=== PATIENT | male | born 1975 | race Caucasian/White ===

== ENCOUNTER 2018-05-26 04:18 | Inpatient (IN) | payer SELFPAY ==
[2018-05-26] MEDS ORDERED: THIAMINE HCL 500 MG in NORMAL SALINE 250 ML IV PRN (04:56)
[2018-05-26] MEDS ORDERED: FOLIC ACID INJ 5 MG/1 ML 10 ML VIAL IV ONE (04:57)
[2018-05-26 05:03] LABS: ABSOLUTE EOSINOPHILS # (AUTO) 0.1 10^3/uL (0.0-0.6); ABSOLUTE LYMPHOCYTES (AUTO) 1.4 10^3/uL (0.5-4.7); ABSOLUTE MONOCYTES (AUTO) 0.6 10^3/uL (0.1-1.4); ABSOLUTE NEUT (AUTO) 6.5 10^3/uL (1.7-8.2); BASOPHILS % (AUTO) 0.3 % (0-2); EOSINOPHILS % (AUTO) 0.6 % (0-6); HEMATOCRIT 38.7 % (37.9-51.0); HEMOGLOBIN 13.6 g/dL (13.5-17.0); LYMPHOCYTES % (AUTO) 16.6 % (13-45); MEAN CORPUSCULAR HEMOGLOBIN 32.9 pg (27.0-33.4); MEAN CORPUSCULAR HGB CONC 35.2 g/dL (32.0-36.0); MEAN CORPUSCULAR VOLUME 94 fl (80-97); MONOCYTES % (AUTO) 6.9 % (3-13); PLATELET COUNT 127 10^3/uL (150-450); RED BLOOD COUNT 4.14 10^6/uL (4.35-5.55); RED CELL DISTRIBUTION WIDTH 17.3 % (11.5-14.0); SEGMENTED NEUTROPHILS % (AUTO) 75.6 % (42-78); TOTAL CELLS COUNTED % (AUTO) 100 %; WHITE BLOOD COUNT 8.6 10^3/uL (4.0-10.5)
[2018-05-26 05:09] LABS: INTERNATIONAL RATION (INR) 1.21; PROTHROMBIN TIME 15.9 SEC (11.4-15.4)
[2018-05-26 05:10] LABS: PARTIAL THROMBOPLASTIN TIME 34.8 SEC (23.5-35.8)
[2018-05-26 05:22] LABS: ALANINE AMINOTRANSFERASE 77 U/L (21-72); ALBUMIN 4.5 g/dL (3.5-5.0); ALKALINE PHOSPHATASE 161 U/L (38-126); ASPARTATE AMINO TRANSFERASE 230 U/L (17-59); BILIRUBIN,DIRECT 3.6 mg/dL (0.0-0.4); BILIRUBIN,TOTAL 5.5 mg/dL (0.2-1.3); BLOOD UREA NITROGEN 13 mg/dL (7-20); CALCIUM 10.4 mg/dL (8.4-10.2); GLUCOSE 164 mg/dL (75-110); LIPASE 400.8 U/L (23-300); TOTAL PROTEIN 8.9 g/dL (6.3-8.2)
--- NOTE | 2018-05-26 05:29 | ER Document Report ---
Doctor's Note Notes: 05/26/18 05:26 I performed a quick triage evaluation the patient. Patient is a 43-year-old male who presents with weakness and feeling short of breath. He denies any pain anywhere. No chest pain. No abdominal pain. No headache. He is an alcoholic. He says he drinks almost every day. He does have history of liver failure. He is says he is unsure why he has liver failure. I asked him if it is related to the alcohol and he says "maybe". Says he does have a liver specialist back at his home in [place]. He is currently in the area because he is here working on a job. EKG was performed. Patient does have a right bundle branch block. I do not hold off on old EKG for comparison. He does have some ST segment depression which could be related to the block itself. I do not see any ST segment elevation. He has a sinus rhythm. Rate is approximately 97 bpm. On exam patient has some tremor which she says his nose have a course of the last week. Whenever he tries to move his arms lift his legs he has some social tremor. Denies any history of alcohol withdrawal. He says that the tremor does not get better or worse with drinking alcohol. He is supposed to be on vitamin supplements including thiamine and B12. He says he has not been taking these. His speech is little bit slow. He is little bit slow to respond. He is awake and alert and does answer questions appropriately. He does have significant nystagmus on exam. I have ordered thiamine. I have ordered folate. Have ordered CT scan of the head. Of ordered ammonia level. Of ordered further blood work. 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 Dictation of this chart was performed using voice recognition software; therefore, there may be some unintended grammatical errors. 05/26/18 05:28
[2018-05-26] MEDS ORDERED: THIAMINE HCL INJ 200 MG/2 ML VIAL IV PRN (05:33)
[2018-05-26] MEDS ORDERED: THIAMINE HCL INJ 200 MG/2 ML VIAL ONE ×3 (05:35→05:50)
[2018-05-26 05:57] LABS: CARBON DIOXIDE 19 mmol/L (22-30); CHLORIDE 101 mmol/L (98-107)
[2018-05-26 06:01] LABS: ALCOHOL 337 mg/dL (NONE DETECTED); POTASSIUM 2.2 mmol/L (3.6-5.0)
[2018-05-26] MEDS ORDERED: LACTULOSE SYRUP 20 GM/30 ML UDCUP PO ONE (06:05)
[2018-05-26] MEDS ORDERED: POTASSIUM CHLORIDE 10 MEQ CAPSULE.ER PO ONE (06:05)
--- NOTE | 2018-05-26 06:06 | ER Document Report ---
ED Dizziness/Weakness - General Chief Complaint: General Weakness Stated Complaint: WEAKNESS Time Seen by Provider: 05/26/18 04:49 Notes: 43-year-old male to the emergency department for evaluation of altered mental status. Patient here from out of town. Reportedly heavy drinker. Was confused and short of breath so called 911. Has any trauma. Complaining of pain all over. - HPI Patient complains to provider of: Altered mental status Onset/Duration: Gradual Quality of pain: Achy Severity: Moderate - Related Data Allergies/Adverse Reactions: No Known Allergies Allergy (Verified 05/26/18 04:53) Past Medical History - General Information source: Patient - Social History Smoking Status: Never Smoker Chew tobacco use (# tins/day): No Frequency of alcohol use: Heavy Drug Abuse: None Lives with: Alone Family History: Reviewed & Not Pertinent Patient has suicidal ideation: No Patient has homicidal ideation: No Renal/ Medical History: Denies: Hx Peritoneal Dialysis Review of Systems - Review of Systems Constitutional: Malaise, Weakness. denies: Fever EENT: denies: Eye pain, Difficulty swallowing, Mouth pain Cardiovascular: Palpitations, Dyspnea. denies: Chest pain, Heart racing, Orthopnea Respiratory: Short of breath. denies: Cough, Wheezing Gastrointestinal: denies: Abdominal pain, Diarrhea, Nausea, Vomiting Genitourinary: denies: Burning, Dysuria, Discharge Musculoskeletal: Muscle pain. denies: Back pain, Leg swelling Skin: denies: Dryness, Lesions, Lumps, Rash Hematologic/Lymphatic: denies: Anemia, Blood clots, Easy bleeding, Easy bruising Neurological/Psychological: Confusion, Weakness. denies: Numbness Physical Exam - Vital signs Vitals: Pulse Ox 100 05/26/18 04:22 Interpretation: Tachycardic - General General appearance: Appears well, Alert - HEENT Head: Normocephalic, Atraumatic Eyes: Normal Conjunctiva: Icteric Pupils: PERRL - Respiratory Respiratory status: No respiratory distress Chest status: Nontender Breath sounds: Normal Chest palpation: Normal - Cardiovascular Rhythm: Tachycardia Heart sounds: Normal auscultation Murmur: No - Abdominal Inspection: Normal Distension: No distension Bowel sounds: Normal Tenderness: Nontender Organomegaly: No organomegaly - Back Back: Normal, Nontender - Extremities General upper extremity: Normal inspection, Nontender, Normal color, Normal ROM, Normal temperature General lower extremity: Normal inspection, Nontender, Normal color, Normal ROM, Normal temperature, Normal weight bearing. No: Feli's sign - Neurological Neuro grossly intact: Yes Cognition: Confused Orientation: AAOx4 [place] Coma Scale Eye Opening: Spontaneous Robert Coma Scale Verbal: Oriented Robert Coma Scale Motor: Obeys Commands Robert Coma Scale Total: 15 Speech: Normal Motor strength normal: LUE, RUE, LLE, RLE Sensory: Normal - Psychological Associated symptoms: Normal affect, Normal mood - Skin Skin Temperature: Warm Skin Moisture: Dry Skin Color: Normal Course - Re-evaluation Re-evalutation: 05/26/18 07:28 Patient with profound hypokalemia and some EKG changes with increased QTC, ammonia level in the 120s. Patient begun on immediate potassium replacement therapy. Lactulose. Patient will need stepdown level care at the [facility] at this time. Consulted with Dr. Jimenez will admit at this time. 05/26/18 09:30 Laboratory 05/26/18 05/26/18 05/26/18 04:36 04:48 04:48 WBC 8.6 RBC 4.14 L Hgb 13.6 Hct 38.7 MCV 94 MCH 32.9 MCHC 35.2 RDW 17.3 H Plt Count 127 L Seg Neutrophils % 75.6 Lymphocytes % 16.6 Monocytes % 6.9 Eosinophils % 0.6 Basophils % 0.3 Absolute Neutrophils 6.5 Absolute Lymphocytes 1.4 Absolute Monocytes 0.6 Absolute Eosinophils 0.1 Absolute Basophils 0.0 PT INR APTT Sodium 142.0 Potassium 2.2 L* Chloride 101 Carbon Dioxide 19 L Anion Gap 22 H BUN 13 Creatinine 0.85 Est GFR ( Amer) > 60 Est GFR (Non-Af Amer) > 60 Glucose 164 H POC Glucose 155 H Calcium 10.4 H Total Bilirubin 5.5 H Direct Bilirubin 3.6 H Neonat Total Bilirubin Not Reportable Neonat Direct Bilirubin Not Reportable Neonat Indirect Bili Not Reportable AST 230 H ALT 77 H Alkaline Phosphatase 161 H Ammonia Troponin I Total Protein 8.9 H Albumin 4.5 Lipase 400.8 H Vitamin B12 Cancelled Folate 3.49 Serum Alcohol 337 H* 05/26/18 05/26/18 05/26/18 04:48 04:48 04:48 WBC RBC Hgb Hct MCV MCH MCHC RDW Plt Count Seg Neutrophils % Lymphocytes % Monocytes % Eosinophils % Basophils % Absolute Neutrophils Absolute Lymphocytes Absolute Monocytes Absolute Eosinophils Absolute Basophils PT 15.9 H INR 1.21 APTT 34.8 Sodium Potassium Chloride Carbon Dioxide Anion Gap BUN Creatinine Est GFR ( Amer) Est GFR (Non-Af Amer) Glucose POC Glucose Calcium Total Bilirubin Direct Bilirubin Neonat Total Bilirubin Neonat Direct Bilirubin Neonat Indirect Bili AST ALT Alkaline Phosphatase Ammonia 125.8 H Troponin I < 0.012 Total Protein Albumin Lipase Vitamin B12 Folate Serum Alcohol Chest X-Ray 05/26/18 04:49 IMPRESSION: Clear lungs. Head CT 05/26/18 04:49 IMPRESSION: No acute intracranial findings. - Vital Signs Vital signs: Temp Pulse Resp BP Pulse Ox 98.0 F 107 H 16 133/73 H 100 05/26/18 08:54 05/26/18 08:54 05/26/18 08:54 05/26/18 08:54 05/26/18 08:54 - Laboratory Result Diagrams: 05/26/18 04:48 05/26/18 04:48 Laboratory results interpreted by me: 05/26/18 05/26/18 05/26/18 04:36 04:48 04:48 RBC 4.14 L RDW 17.3 H Plt Count 127 L PT Potassium 2.2 L* Carbon Dioxide 19 L Anion Gap 22 H Glucose 164 H POC Glucose 155 H Calcium 10.4 H Total Bilirubin 5.5 H Direct Bilirubin 3.6 H AST 230 H ALT 77 H Alkaline Phosphatase 161 H Ammonia Total Protein 8.9 H Lipase 400.8 H Serum Alcohol 337 H* 05/26/18 05/26/18 04:48 04:48 RBC RDW Plt Count PT 15.9 H Potassium Carbon Dioxide Anion Gap Glucose POC Glucose Calcium Total Bilirubin Direct Bilirubin AST ALT Alkaline Phosphatase Ammonia 125.8 H Total Protein Lipase Serum Alcohol Critical Care Note - Critical Care Note Total time excluding time spent on procedures (mins): 45 Comments: Hypokalemia, hepatic encephalopathy Discharge - Discharge Clinical Impression: Increased ammonia level, Hypokalemia, Hepatic encephalopathy, Elevated bilirubin, Intoxication Condition: Fair Disposition: ADMITTED OBSERVATION [facility] Admitted: [facility]
--- NOTE | 2018-05-26 06:13 | RADIOLOGY REPORT (SQ) ---
CLINICAL HISTORY: weakness, tremor COMPARISON: None. 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 FINDINGS: There is no acute hemorrhage, mass effect or midline shift. Christiansen-white differentiation is preserved. There is no hydrocephalus. There is no significant volume loss for age. The calvarium is intact. Orbits and globes are unremarkable. The paranasal sinuses are clear. Mastoid air cells are clear. IMPRESSION: No acute intracranial findings.
--- NOTE | 2018-05-26 06:17 | RADIOLOGY REPORT (SQ) ---
CLINICAL HISTORY: dyspnea COMPARISON: None. 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 Lungs are clear without consolidation, atelectasis, mass or edema. There is no pleural effusion. There is no pneumothorax. There are no acute osseous findings. IMPRESSION: Clear lungs.
[2018-05-26] MEDS: POTASSI CL 20 MEQ/50 ML RIDER 20 MEQ/50 ML RTUPB IV SCH ×4 (06:34→13:08)
[2018-05-26 08:50] LABS: ANION GAP 22 (5-19); FOLATE 3.49 ng/mL (>2.76)
--- NOTE | 2018-05-26 08:51 | EKG REPORT ---
SEVERITY:- ABNORMAL ECG - SINUS RHYTHM RIGHT BUNDLE BRANCH BLOCK : Confirmed by: Arcenio Pemberton MD 26-May-2018 08:50:14
--- NOTE | 2018-05-26 09:07 | PDOC H&P ---
History of Present Illness Admission Date/PCP: 05/26/18 07:40 History of Present Illness: KELLI ESTEBAN is a 43 year old male who moved recently from [facility] to [place] for work. Patient presents to the emergency room due to acute onset of generalized weakness associated with shaking and tremulousness and feeling cold. He denies fever or chills. He denies nausea, vomiting, diarrhea or constipation. No chest pain. He admits to feeling short of breath. He is very poor historian. He says he is drinking 8 glasses of vodka every other day for the past month. He has been drinking for several years but quit for some time and now drinking again. Patient says he has history of liver and kidney disease but unsure what kind of illness exactly. In the emergency room he was found to have high ammonia level and his alcohol level was 337. He says his last drink was 2 days ago. His liver enzymes are elevated and his lipase is 400. His potassium was 2.2. Urine drug screen is pending. Past Medical History Renal/ Medical History: Reports: Other - Renal disease, unspecified GI Medical History: Reports: Other - Liver disease, unspecified Social History Smoking Status: Current Every Day Smoker Frequency of Alcohol Use: Heavy Family History Family History: DM Parental Family History Reviewed: Yes Children Family History Reviewed: NA Sibling(s) Family History Reviewed.: NA Medication/Allergy Allergies/Adverse Reactions: No Known Allergies Allergy (Verified 05/26/18 04:53) Review of Systems All systems: reviewed and no additional remarkable complaints except as stated Physical Exam Vital Signs: Temp Pulse Resp BP Pulse Ox 98.0 F 110 H 11 L 114/67 100 05/26/18 08:22 05/26/18 07:44 05/26/18 08:01 05/26/18 08:01 05/26/18 08:01 Intake & Output 05/25/18 05/26/18 05/27/18 06:59 06:59 06:59 Intake Total 255 37 Balance 255 37 Weight 162 lb 0.636 oz General appearance: PRESENT: cooperative, thin Head exam: PRESENT: atraumatic, normocephalic Eye exam: PRESENT: conjunctival injection, scleral icterus Ear exam: ABSENT: bleeding, drainage Mouth exam: PRESENT: moist, neck supple Neck exam: ABSENT: meningismus, tenderness Respiratory exam: PRESENT: clear to auscultation titi. ABSENT: accessory muscle use Cardiovascular exam: PRESENT: RRR. ABSENT: diastolic murmur, systolic murmur Pulses: PRESENT: normal carotid pulses, normal radial pulses GI/Abdominal exam: PRESENT: normal bowel sounds, soft. ABSENT: tenderness Rectal exam: PRESENT: deferred Extremities exam: ABSENT: joint swelling, pedal edema Musculoskeletal exam: PRESENT: normal inspection. ABSENT: deformity Neurological exam: PRESENT: alert, awake, oriented to person, oriented to place, oriented to time, oriented to situation, other - [place] Psychiatric exam: PRESENT: anxious, unusual affect Results Laboratory Results: 05/26/18 04:48 05/26/18 04:48 05/26/18 05/26/18 05/26/18 04:48 04:48 04:48 WBC 8.6 RBC 4.14 L Hgb 13.6 Hct 38.7 MCV 94 MCH 32.9 MCHC 35.2 RDW 17.3 H Plt Count 127 L Seg Neutrophils % 75.6 Lymphocytes % 16.6 Monocytes % 6.9 Eosinophils % 0.6 Basophils % 0.3 Absolute Neutrophils 6.5 Absolute Lymphocytes 1.4 Absolute Monocytes 0.6 Absolute Eosinophils 0.1 Absolute Basophils 0.0 Sodium 142.0 Potassium 2.2 L* Chloride 101 Carbon Dioxide 19 L Anion Gap 22 H BUN 13 Creatinine 0.85 Est GFR ( Amer) > 60 Est GFR (Non-Af Amer) > 60 Glucose 164 H Calcium 10.4 H Total Bilirubin 5.5 H AST 230 H ALT 77 H Alkaline Phosphatase 161 H Ammonia 125.8 H Total Protein 8.9 H Albumin 4.5 Lipase 400.8 H Vitamin B12 Cancelled Folate 3.49 05/26/18 04:48 Troponin I < 0.012 Impressions: Chest X-Ray 05/26/18 04:49 IMPRESSION: Clear lungs. Head CT 05/26/18 04:49 IMPRESSION: No acute intracranial findings. Assessment & Plan - Diagnosis (1) Intoxication Is this a current diagnosis for this admission?: Yes Plan: Patient's alcohol level is 337. Continue with IV fluids and supportive measures. Watch for alcohol withdrawal symptoms. Start thiamine supplements and multivitamins. IV Ativan scheduled and as needed. (2) Hepatic encephalopathy Is this a current diagnosis for this admission?: Yes Plan: Start p.o. lactulose twice daily (3) Elevated bilirubin Is this a current diagnosis for this admission?: Yes Plan: Monitor bilirubin levels. Likely related to alcoholism and alcoholic liver disease. Check abdominal ultrasound. (4) Hypokalemia Is this a current diagnosis for this admission?: Yes Plan: Replace aggressively. Monitor potassium levels. Check magnesium levels. (5) Increased ammonia level Is this a current diagnosis for this admission?: Yes Plan: Continue lactulose as above.
[2018-05-26] MEDS: LACTULOSE SYRUP 20 GM/30 ML UDCUP PO SCH ×2 (11:01→21:24)
[2018-05-26] MEDS: LORAZEPAM INJ 2 MG/1 ML VIAL IV SCH ×4 (11:45→21:24)
--- NOTE | 2018-05-26 11:46 | RADIOLOGY REPORT (SQ) ---
EXAM DESCRIPTION: U/S ABDOMEN COMPLETE W/O DOP COMPLETED DATE/TIME: 05/26/2018 11:37 am REASON FOR STUDY: elevated bilirubin COMPARISON: None. TECHNIQUE: Dynamic and static grayscale images acquired of the abdomen and recorded on PACS. Additio nal selected color Doppler and spectral images recorded. Note: Study does not meet criteria for complete doppler/duplex scan LIMITATIONS: None. FINDINGS: PANCREAS: No masses. Visualized pancreatic duct normal caliber. LIVER: Slightly nodular. Fatty infiltration. No focal masses. 18.1 cm. LIVER VASCULATURE: Normal directional flow of the main portal vein and hepatic veins. GALLBLADDER: No stones. Normal wall thickness. No pericholecystic fluid. ULTRASOUND-DETECTED CARTER'S SIGN: Negative. INTRAHEPATIC DUCTS AND COMMON DUCT: CBD and intrahepatic ducts normal caliber. No filling defects. INFERIOR VENA CAVA: Normal flow. AORTA: No aneurysm. RIGHT KIDNEY: Normal size. Normal echogenicity. No solid or suspicious masses. No hydronephros is. No calcifications. LEFT KIDNEY: Normal size. Normal echogenicity. No solid or suspicious masses. No hydronephrosi s. No calcifications. SPLEEN: Splenomegaly. 13.7 cm. PERITONEAL AND PLEURAL SPACES: No ascites or effusions. OTHER: No other significant finding. IMPRESSION: Slightly nodular liver with fatty infiltration. Splenomegaly. No gallstones. TECHNICAL DOCUMENTATION: JOB ID: [id number] [employer]- All Rights Reserved Reading location - IP/workstation name: [email or web address]
[2018-05-26 12:01] LABS: URINE AMPHETAMINES SCREEN NEGATIVE; URINE BARBITURATES SCREEN NEGATIVE; URINE BENZODIAZEPINES SCREEN NEGATIVE; URINE COCAINE SCREEN NEGATIVE; URINE MARIJUANA (THC) SCREEN NEGATIVE; URINE METHADONE SCREEN NEGATIVE; URINE PHENCYCLIDINE SCREEN NEGATIVE
[2018-05-26 14:22] LABS: APPEARANCE,URINE CLEAR; BILIRUBIN,URINE NEGATIVE (NEGATIVE); COLOR,URINE AMBER; GLUCOSE, URINE NEGATIVE (NEGATIVE); KETONES,URINE NEGATIVE (NEGATIVE); LEUKOCYTE ESTERASE,URINE NEGATIVE (NEGATIVE); NITRITE,URINE NEGATIVE (NEGATIVE); PROTEIN,URINE NEGATIVE (NEGATIVE); URINE SPECIFIC GRAVITY 1.013
[2018-05-26] MEDS ORDERED: MAGNESIUM SULFATE/D5W 1 GM/100 ML RTUPB IV ONE (15:00)
[2018-05-26] MEDS ORDERED: NORMAL SALINE 1000 ML 1,000 ML IV ONE (16:00)
[2018-05-26] MEDS ORDERED: LORAZEPAM INJ 2 MG/1 ML VIAL IV ONE (16:00)
[2018-05-26] MEDS: MAGNESIUM SULFATE/D5W 1 GM/100 ML RTUPB IV SCH ×2 (17:04→18:47)
[2018-05-26] MEDS: NORMAL SALINE 1000 ML 1,000 ML with POTASSIUM CHLORIDE 20 MEQ, MAGNESIUM SULFATE 8 MEQ,... IV SCH ×5 (17:08)
[2018-05-26] MEDS ORDERED: POTASSIUM CHLORIDE 20 MEQ/15 ML UDCUP PO ONE (18:00)
[2018-05-26] MEDS: POTASSIUM CHLORIDE 20 MEQ/50 ML RTU IV SCH (18:56)
[2018-05-26] MEDS ORDERED: METOPROLOL TARTRATE PF/INJ 5 MG/5 ML SDV IV ONE (19:55)
[2018-05-26] MEDS: METOPROLOL TARTRATE PF/INJ 5 MG/5 ML SDV IV PRN (22:09)
[2018-05-27] MEDS: POTASSIUM CHLORIDE 20 MEQ/50 ML RTU IV SCH ×3 (00:31→08:38)
[2018-05-27] MEDS: LORAZEPAM INJ 2 MG/1 ML VIAL IV SCH ×6 (02:14→22:16)
[2018-05-27] MEDS: LORAZEPAM INJ 2 MG/1 ML VIAL IV PRN (04:44)
[2018-05-27 05:40] LABS: HEMATOCRIT 31.1 % (37.9-51.0); MEAN CORPUSCULAR HEMOGLOBIN 33.1 pg (27.0-33.4); MEAN CORPUSCULAR HGB CONC 35.6 g/dL (32.0-36.0); MEAN CORPUSCULAR VOLUME 93 fl (80-97); RED BLOOD COUNT 3.33 10^6/uL (4.35-5.55); RED CELL DISTRIBUTION WIDTH 17.4 % (11.5-14.0)
[2018-05-27 06:05] LABS: ALANINE AMINOTRANSFERASE 56 U/L (21-72); ALBUMIN 3.2 g/dL (3.5-5.0); ALKALINE PHOSPHATASE 118 U/L (38-126); ANION GAP 9 (5-19); ASPARTATE AMINO TRANSFERASE 193 U/L (17-59); BILIRUBIN,DIRECT 4.6 mg/dL (0.0-0.4); BILIRUBIN,TOTAL 7.8 mg/dL (0.2-1.3); BLOOD UREA NITROGEN 10 mg/dL (7-20); CALCIUM 8.2 mg/dL (8.4-10.2); CARBON DIOXIDE 19 mmol/L (22-30); CHLORIDE 114 mmol/L (98-107); GLUCOSE 95 mg/dL (75-110); PHOSPHORUS 0.9 mg/dL (2.5-4.5); SODIUM 141.7 mmol/L (137-145); TOTAL PROTEIN 6.7 g/dL (6.3-8.2)
[2018-05-27 06:25] LABS: POTASSIUM 2.4 mmol/L (3.6-5.0)
[2018-05-27 06:29] LABS: HEMOGLOBIN 11.1 g/dL (13.5-17.0); PLATELET COUNT 58 10^3/uL (150-450)
[2018-05-27] MEDS ORDERED: POTASSIUM CHLORIDE 10 MEQ CAPSULE.ER PO ONE (07:00)
--- NOTE | 2018-05-27 08:54 | PDOC PROGRESS REPORT ---
Subjective Progress Note for:: 05/27/18 Subjective:: Alert only to his first name, very low attention span, does not follow conversation, cooperates with physical examination, but cannot perform 2 step commands. He looks tremulous, denies any visual or auditory hallucinations, does not provide much history. Reason For Visit: ALCOHOL INTOXICATION Physical Exam Vital Signs: Temp Pulse Resp BP Pulse Ox 98.6 F 113 H 16 113/65 100 05/27/18 07:39 05/27/18 07:39 05/27/18 07:39 05/27/18 07:39 05/27/18 07:39 Intake & Output 05/26/18 05/27/18 05/28/18 06:59 06:59 06:59 Intake Total 255 2960 46 Output Total 1925 Balance 255 1035 46 Weight 73.5 kg 70.9 kg General appearance: PRESENT: no acute distress, well-developed, well-nourished Head exam: PRESENT: atraumatic, normocephalic Respiratory exam: PRESENT: clear to auscultation titi. ABSENT: rales, rhonchi, wheezes Cardiovascular exam: PRESENT: RRR, tachycardia Pulses: PRESENT: normal dorsalis pedis pul GI/Abdominal exam: PRESENT: normal bowel sounds, soft. ABSENT: distended, guarding, mass, organolmegaly, rebound, tenderness Extremities exam: PRESENT: full ROM. ABSENT: calf tenderness, clubbing, pedal edema Neurological exam: PRESENT: alert, awake, oriented to person, CN II-XII grossly intact Skin exam: PRESENT: dry, intact, warm. ABSENT: cyanosis, rash Results Laboratory Results: 05/27/18 04:20 05/27/18 04:20 05/26/18 05/26/18 05/26/18 04:48 10:50 10:50 WBC RBC Hgb Hct MCV MCH MCHC RDW Plt Count Sodium Potassium Chloride Carbon Dioxide Anion Gap 22 H BUN Creatinine Est GFR ( Amer) Est GFR (Non-Af Amer) Glucose Calcium Phosphorus Magnesium 1.5 L Total Bilirubin AST ALT Alkaline Phosphatase Total Protein Albumin Vitamin B12 Cancelled 798.0 Folate 3.49 Urine Color BILL Urine Appearance CLEAR Urine pH 7.0 Ur Specific [place] 1.013 Urine Protein NEGATIVE Urine Glucose (UA) NEGATIVE Urine Ketones NEGATIVE Urine Blood SMALL H Urine Nitrite NEGATIVE Ur Leukocyte Esterase NEGATIVE Urine WBC (Auto) 3 Urine RBC (Auto) 1 05/26/18 05/27/18 05/27/18 16:45 04:20 04:20 WBC 7.0 RBC 3.33 L Hgb 11.1 L D Hct 31.1 L MCV 93 MCH 33.1 MCHC 35.6 RDW 17.4 H Plt Count 58 L Sodium 141.7 Potassium 2.6 L* 2.4 L* Chloride 114 H Carbon Dioxide 19 L Anion Gap 9 BUN 10 Creatinine 0.66 Est GFR ( Amer) > 60 Est GFR (Non-Af Amer) > 60 Glucose 95 Calcium 8.2 L Phosphorus 0.9 L Magnesium 2.4 H Total Bilirubin 7.8 H AST 193 H ALT 56 Alkaline Phosphatase 118 Total Protein 6.7 Albumin 3.2 L Vitamin B12 Folate Urine Color Urine Appearance Urine pH Ur Specific [place] Urine Protein Urine Glucose (UA) Urine Ketones Urine Blood Urine Nitrite Ur Leukocyte Esterase Urine WBC (Auto) Urine RBC (Auto) 05/26/18 04:48 Troponin I < 0.012 Impressions: Abdomen Ultrasound 05/26/18 00:00 IMPRESSION: Slightly nodular liver with fatty infiltration. Splenomegaly. No gallstones. Chest X-Ray 05/26/18 04:49 IMPRESSION: Clear lungs. Head CT 05/26/18 04:49 IMPRESSION: No acute intracranial findings. Assessment & Plan - Diagnosis (1) Alcohol intoxication Qualifiers: Complication of substance-induced condition: with unspecified complication Qualified Code(s): F10.929 - Alcohol use, unspecified with intoxication, unspecified Is this a current diagnosis for this admission?: Yes Plan: CIWA-Ar Scale 11. Serum alcohol 337 on admission. Continue benzos, folic acid and thiamine, monitor for DT, monitor vitals. (2) Hepatic encephalopathy Is this a current diagnosis for this admission?: Yes Plan: Ammonia 125.8. Abdominal ultrasound slightly nodular liver with fatty infiltration. Pending hepatitis panel. PT 15.9 INR 1.21 on admission AST 193 down from 230 on admission. ALT 56 down from 77 on admission. Direct bili 4.6.6 up down from 3.6 Total bili 7.8 up from 5.5 admission Hepatitis discriminant factor 28.5 Continue lactulose, monitor vital status. (3) Hypokalemia Is this a current diagnosis for this admission?: Yes Plan: Replaced. Follow-up BMP. (4) Elevated liver enzymes Is this a current diagnosis for this admission?: Yes Plan: 05/26/2018. Abdominal ultrasound slightly nodular liver with fatty infiltration. AST 193 down from 230 on admission. ALT 56 down from 77 on admission. Direct bili 4.6.6 up down from 3.6 Total bili 7.8 up from 5.5 admission Ammonia 125.8. On admission Hepatitis discriminant factor 28.5 Pending hepatitis panel. Likely due to EtOH abuse. LFTs tomorrow. Will consider GI consult if does not improve.
[2018-05-27] MEDS: LACTULOSE SYRUP 20 GM/30 ML UDCUP PO SCH ×2 (10:46→22:16)
[2018-05-27 13:41] LABS: ANION GAP 8 (5-19); BLOOD UREA NITROGEN 11 mg/dL (7-20); CARBON DIOXIDE 18 mmol/L (22-30); CHLORIDE 117 mmol/L (98-107); GLUCOSE 102 mg/dL (75-110); SODIUM 142.7 mmol/L (137-145)
[2018-05-27] MEDS: THIAMINE HCL 100 MG TABLET PO SCH (14:10)
[2018-05-27] MEDS ORDERED: POTASSIUM CHLORIDE 20 MEQ/15 ML UDCUP PO ONE (14:30)
[2018-05-27] MEDS: NORMAL SALINE 1000 ML 1,000 ML with POTASSIUM CHLORIDE 20 MEQ, MAGNESIUM SULFATE 8 MEQ,... IV SCH ×5 (17:43)
[2018-05-27] MEDS: FOLIC ACID/VITAMIN B COMP W-C CAPSULE PO SCH (17:44)
[2018-05-27] MEDS: METOPROLOL TARTRATE PF/INJ 5 MG/5 ML SDV IV PRN (23:34)
[2018-05-28] MEDS: LORAZEPAM INJ 2 MG/1 ML VIAL IV PRN ×5 (00:14→23:15)
[2018-05-28] MEDS: LORAZEPAM INJ 2 MG/1 ML VIAL IV SCH ×6 (02:07→21:08)
[2018-05-28 05:14] LABS: ABSOLUTE BASOPHILS # (AUTO) 0.1 10^3/uL (0.0-0.2); ABSOLUTE EOSINOPHILS # (AUTO) 0.1 10^3/uL (0.0-0.6); ABSOLUTE LYMPHOCYTES (AUTO) 1.1 10^3/uL (0.5-4.7); ABSOLUTE MONOCYTES (AUTO) 0.6 10^3/uL (0.1-1.4); ABSOLUTE NEUT (AUTO) 5.2 10^3/uL (1.7-8.2); BASOPHILS % (AUTO) 0.7 % (0-2); EOSINOPHILS % (AUTO) 1.6 % (0-6); HEMATOCRIT 29.7 % (37.9-51.0); HEMOGLOBIN 10.5 g/dL (13.5-17.0); LYMPHOCYTES % (AUTO) 15.6 % (13-45); MEAN CORPUSCULAR HEMOGLOBIN 33.7 pg (27.0-33.4); MEAN CORPUSCULAR HGB CONC 35.4 g/dL (32.0-36.0); MEAN CORPUSCULAR VOLUME 95 fl (80-97); MONOCYTES % (AUTO) 8.6 % (3-13); RED BLOOD COUNT 3.13 10^6/uL (4.35-5.55); RED CELL DISTRIBUTION WIDTH 17.4 % (11.5-14.0); SEGMENTED NEUTROPHILS % (AUTO) 73.5 % (42-78); TOTAL CELLS COUNTED % (AUTO) 100 %; WHITE BLOOD COUNT 7.1 10^3/uL (4.0-10.5)
[2018-05-28 05:24] LABS: PLATELET COUNT 54 10^3/uL (150-450)
[2018-05-28 05:30] LABS: ALANINE AMINOTRANSFERASE 55 U/L (21-72); ALBUMIN 2.9 g/dL (3.5-5.0); ALKALINE PHOSPHATASE 98 U/L (38-126); ANION GAP 9 (5-19); ASPARTATE AMINO TRANSFERASE 148 U/L (17-59); BILIRUBIN,DIRECT 6.8 mg/dL (0.0-0.4); BLOOD UREA NITROGEN 11 mg/dL (7-20); CALCIUM 8.1 mg/dL (8.4-10.2); CARBON DIOXIDE 16 mmol/L (22-30); CHLORIDE 118 mmol/L (98-107); GLUCOSE 98 mg/dL (75-110); SODIUM 142.6 mmol/L (137-145); TOTAL PROTEIN 6.5 g/dL (6.3-8.2)
[2018-05-28 05:36] LABS: POTASSIUM 2.9 mmol/L (3.6-5.0)
[2018-05-28] MEDS: METOPROLOL TARTRATE PF/INJ 5 MG/5 ML SDV IV PRN (06:43)
[2018-05-28] MEDS ORDERED: POTASSI CL 40 MEQ/NS 1L 1,000 ML IV PRN (09:00)
[2018-05-28 09:40] LABS: HEPATITIS A AB IGM Negative (Negative); HEPATITIS B CORE AB IGM Negative (Negative); HEPATITS B SURFACE ANTIGEN Negative (Negative)
[2018-05-28 09:54] LABS: HEPATITIS C VIRUS ANTIBODY 0.1 s/co ratio (0.0-0.9)
[2018-05-28] MEDS: THIAMINE HCL 100 MG TABLET PO SCH (12:22)
--- NOTE | 2018-05-28 14:06 | PDOC PROGRESS REPORT ---
Subjective Progress Note for:: 05/28/18 Subjective:: No acute events overnight. Mild improvement of mental status. And oriented to name and location. Denies any active visual/auditory hallucinations or formication. Cooperative with physical examination with low attention span. Denies any nausea, vomiting, diarrhea, constipation, chest pain, shortness of breath or any urinary symptoms. Reason For Visit: DTS,HEPATIC ENCEPHALOPATHY Physical Exam Vital Signs: Temp Pulse Resp BP Pulse Ox 100.4 F 113 H 16 114/71 100 05/28/18 11:56 05/28/18 11:56 05/28/18 11:56 05/28/18 11:56 05/28/18 11:56 Intake & Output 05/27/18 05/28/18 05/29/18 06:59 06:59 06:59 Intake Total 2960 1119 Output Total 1925 1825 675 Balance 1035 -706 -675 Weight 70.9 kg 70.3 kg General appearance: PRESENT: no acute distress, well-developed, well-nourished Head exam: PRESENT: atraumatic, normocephalic Respiratory exam: PRESENT: clear to auscultation titi. ABSENT: rales, rhonchi, wheezes Cardiovascular exam: PRESENT: RRR. ABSENT: diastolic murmur, rubs, systolic murmur GI/Abdominal exam: PRESENT: normal bowel sounds, soft. ABSENT: distended, guarding, mass, organolmegaly, rebound, tenderness Extremities exam: PRESENT: full ROM. ABSENT: calf tenderness, clubbing, pedal edema Neurological exam: PRESENT: altered, awake, oriented to person, oriented to place, CN II-XII grossly intact Skin exam: PRESENT: jaundice Results Laboratory Results: 05/28/18 04:25 05/28/18 04:25 05/28/18 05/28/18 04:25 04:25 WBC 7.1 RBC 3.13 L Hgb 10.5 L Hct 29.7 L MCV 95 MCH 33.7 H MCHC 35.4 RDW 17.4 H Plt Count 54 L Seg Neutrophils % 73.5 Lymphocytes % 15.6 Monocytes % 8.6 Eosinophils % 1.6 Basophils % 0.7 Absolute Neutrophils 5.2 Absolute Lymphocytes 1.1 Absolute Monocytes 0.6 Absolute Eosinophils 0.1 Absolute Basophils 0.1 Sodium 142.6 Potassium 2.9 L* Chloride 118 H Carbon Dioxide 16 L Anion Gap 9 BUN 11 Creatinine 0.60 Est GFR ( Amer) > 60 Est GFR (Non-Af Amer) > 60 Glucose 98 Calcium 8.1 L Magnesium 2.1 Total Bilirubin 10.0 H AST 148 H ALT 55 Alkaline Phosphatase 98 Total Protein 6.5 Albumin 2.9 L 05/26/18 04:48 Troponin I < 0.012 Impressions: Abdomen Ultrasound 05/26/18 00:00 IMPRESSION: Slightly nodular liver with fatty infiltration. Splenomegaly. No gallstones. Chest X-Ray 05/26/18 04:49 IMPRESSION: Clear lungs. Head CT 05/26/18 04:49 IMPRESSION: No acute intracranial findings. Assessment & Plan - Diagnosis (1) Alcohol intoxication Qualifiers: Complication of substance-induced condition: with unspecified complication Qualified Code(s): F10.929 - Alcohol use, unspecified with intoxication, unspecified Is this a current diagnosis for this admission?: Yes Plan: CIWA-Ar Scale 10. Serum alcohol 337 on admission. Continue benzos, D5 NS, folic acid and thiamine, monitor for DT, monitor vitals. (2) Hepatic encephalopathy Is this a current diagnosis for this admission?: Yes Plan: Ammonia 125.8 on admission Abdominal ultrasound slightly nodular liver with fatty infiltration. Hepatitis panel negative. PT 15.9 INR 1.21 on admission AST 193 down from 230 on admission. ALT 56 down from 77 on admission. Direct bili 10 from 4.6 Total bili 6.8 from 7.8 Hepatitis discriminant factor 28.5 Continue lactulose, monitor vital status. (3) Hypokalemia Is this a current diagnosis for this admission?: Yes Plan: Replaced. D5 NS plus potassium. BMP. Replace as needed. (4) Elevated liver enzymes Is this a current diagnosis for this admission?: Yes Plan: Likely alcoholic hepatitis. 05/26/2018. Abdominal ultrasound slightly nodular liver with fatty infiltration. Hepatitis panel negative. PT 15.9 INR 1.21 on admission AST 193 down from 230 on admission. ALT 56 down from 77 on admission. Direct bili 10 from 4.6 Total bili 6.8 from 7.8 Hepatitis discriminant factor 28.5 Likely due to EtOH abuse. LFTs tomorrow. Will consider GI consult if does not improve.
[2018-05-28] MEDS ORDERED: POTASSIUM CHLORIDE 10 MEQ CAPSULE.ER PO ONE (15:00)
[2018-05-28] MEDS: FOLIC ACID/VITAMIN B COMP W-C CAPSULE PO SCH (15:04)
[2018-05-28] MEDS: POTASSI CL 20 MEQ/D5NS 1L 20 MEQ/1,000 ML RTUINJ IV PRN (15:26)
[2018-05-29] MEDS: LORAZEPAM INJ 2 MG/1 ML VIAL IV PRN ×8 (00:49→23:45)
[2018-05-29] MEDS: LORAZEPAM INJ 2 MG/1 ML VIAL IV SCH ×6 (01:19→21:07)
[2018-05-29] MEDS: POTASSI CL 20 MEQ/D5NS 1L 20 MEQ/1,000 ML RTUINJ IV PRN (03:00)
[2018-05-29 07:29] LABS: ALANINE AMINOTRANSFERASE 40 U/L (21-72); ALBUMIN 2.5 g/dL (3.5-5.0); ALKALINE PHOSPHATASE 86 U/L (38-126); ANION GAP 9 (5-19); ASPARTATE AMINO TRANSFERASE 101 U/L (17-59); BILIRUBIN,DIRECT 5.9 mg/dL (0.0-0.4); BILIRUBIN,TOTAL 8.4 mg/dL (0.2-1.3); BLOOD UREA NITROGEN 13 mg/dL (7-20); CARBON DIOXIDE 14 mmol/L (22-30); CHLORIDE 121 mmol/L (98-107); GLUCOSE 124 mg/dL (75-110); POTASSIUM 3.1 mmol/L (3.6-5.0); SODIUM 143.8 mmol/L (137-145); TOTAL PROTEIN 5.7 g/dL (6.3-8.2)
[2018-05-29 07:32] LABS: ABSOLUTE BASOPHILS # (AUTO) 0.1 10^3/uL (0.0-0.2); ABSOLUTE EOSINOPHILS # (AUTO) 0.1 10^3/uL (0.0-0.6); ABSOLUTE LYMPHOCYTES (AUTO) 1.3 10^3/uL (0.5-4.7); ABSOLUTE MONOCYTES (AUTO) 0.8 10^3/uL (0.1-1.4); BASOPHILS % (AUTO) 0.8 % (0-2); EOSINOPHILS % (AUTO) 1.4 % (0-6); HEMATOCRIT 26.6 % (37.9-51.0); HEMOGLOBIN 9.4 g/dL (13.5-17.0); LYMPHOCYTES % (AUTO) 17.8 % (13-45); MEAN CORPUSCULAR HEMOGLOBIN 33.7 pg (27.0-33.4); MEAN CORPUSCULAR HGB CONC 35.5 g/dL (32.0-36.0); MEAN CORPUSCULAR VOLUME 95 fl (80-97); MONOCYTES % (AUTO) 10.7 % (3-13); RED CELL DISTRIBUTION WIDTH 17.4 % (11.5-14.0); SEGMENTED NEUTROPHILS % (AUTO) 69.3 % (42-78); TOTAL CELLS COUNTED % (AUTO) 100 %; WHITE BLOOD COUNT 7.2 10^3/uL (4.0-10.5)
[2018-05-29 08:03] LABS: PLATELET COUNT 55 10^3/uL (150-450)
[2018-05-29] MEDS ORDERED: MAGNESIUM SULFATE/D5W 1 GM/100 ML RTUPB IV ONE (08:55)
[2018-05-29] MEDS: POTASSI CL 30 MEQ/D5-1/2NS 1L 1000 ML IV PRN ×2 (09:59→21:04)
[2018-05-29] MEDS: LACTULOSE SYRUP 20 GM/30 ML UDCUP PO SCH ×2 (10:04→21:07)
[2018-05-29] MEDS: MAGNESIUM OXIDE 400 MG TABLET PO SCH ×2 (10:05→17:50)
[2018-05-29] MEDS: THIAMINE HCL 100 MG TABLET PO SCH (10:12)
[2018-05-29] MEDS ORDERED: POTASSIUM CHLORIDE IV PRN ×2 (11:00)
[2018-05-29] MEDS ORDERED: NORMAL SALINE IV PRN ×2 (11:00)
[2018-05-29] MEDS ORDERED: DEXTROSE 5% IV PRN ×2 (11:00)
--- NOTE | 2018-05-29 13:09 | PDOC PROGRESS REPORT ---
Subjective Progress Note for:: 05/29/18 Subjective:: No acute events overnight. Was started on one-to-one sitter and had to be started on soft two-point upper extremity restraint as he is trying to get out of his bed, interfering with his meds and removing lines. He is easily arousable oriented to his name however very low attention span and does not follow two-step commands. Denies any active visual/auditory mary llucinations or formication. Denies any nausea, vomiting, diarrhea, constipation, chest pain, shortness of breath or any urinary symptoms. Reason For Visit: DTS,HEPATIC ENCEPHALOPATHY Physical Exam Vital Signs: Temp Pulse Resp BP Pulse Ox 98.3 F 125 H 20 108/69 100 05/29/18 10:56 05/29/18 10:56 05/29/18 10:56 05/29/18 10:56 05/29/18 10:56 Intake & Output 05/28/18 05/29/18 05/30/18 06:59 06:59 06:59 Intake Total 1119 1779 Output Total 1829 7196 850 Balance -706 -097 -850 Weight 70.3 kg 69.9 kg General appearance: PRESENT: no acute distress, well-developed, well-nourished Head exam: PRESENT: atraumatic, normocephalic Respiratory exam: PRESENT: clear to auscultation titi. ABSENT: rales, rhonchi, wheezes Cardiovascular exam: PRESENT: RRR. ABSENT: diastolic murmur, rubs, systolic murmur GI/Abdominal exam: PRESENT: normal bowel sounds, soft. ABSENT: distended, guarding, mass, organolmegaly, rebound, tenderness Extremities exam: PRESENT: full ROM. ABSENT: calf tenderness, clubbing, pedal edema Neurological exam: PRESENT: alert, oriented to person Results Laboratory Results: 05/29/18 06:29 05/29/18 06:29 05/29/18 05/29/18 06:29 06:29 WBC 7.2 RBC 2.80 L Hgb 9.4 L Hct 26.6 L MCV 95 MCH 33.7 H MCHC 35.5 RDW 17.4 H Plt Count 55 L Seg Neutrophils % 69.3 Lymphocytes % 17.8 Monocytes % 10.7 Eosinophils % 1.4 Basophils % 0.8 Absolute Neutrophils 5.0 Absolute Lymphocytes 1.3 Absolute Monocytes 0.8 Absolute Eosinophils 0.1 Absolute Basophils 0.1 Sodium 143.8 Potassium 3.1 L Chloride 121 H Carbon Dioxide 14 L Anion Gap 9 BUN 13 Creatinine 0.55 Est GFR ( Amer) > 60 Est GFR (Non-Af Amer) > 60 Glucose 124 H Calcium 8.0 L Magnesium 1.4 L Total Bilirubin 8.4 H AST 101 H ALT 40 Alkaline Phosphatase 86 Total Protein 5.7 L Albumin 2.5 L 05/26/18 04:48 Troponin I < 0.012 Impressions: Abdomen Ultrasound 05/26/18 00:00 IMPRESSION: Slightly nodular liver with fatty infiltration. Splenomegaly. No gallstones. Chest X-Ray 05/26/18 04:49 IMPRESSION: Clear lungs. Head CT 05/26/18 04:49 IMPRESSION: No acute intracranial findings. Assessment & Plan - Diagnosis (1) Alcohol intoxication Qualifiers: Complication of substance-induced condition: with unspecified complication Qualified Code(s): F10.929 - Alcohol use, unspecified with intoxication, unspecified Is this a current diagnosis for this admission?: Yes Plan: CIWA-Ar Scale 10. Serum alcohol 337 on admission. Continue benzos, D5 NS, folic acid and thiamine, monitor for DT, monitor vitals. (2) Hepatic encephalopathy Is this a current diagnosis for this admission?: Yes Plan: Ammonia 125.8 on admission Abdominal ultrasound slightly nodular liver with fatty infiltration. Hepatitis panel negative. PT 15.9 INR 1.21 on admission AST 193 down from 230 on admission. ALT 56 down from 77 on admission. Direct bili 10 from 4.6 Total bili 6.8 from 7.8 Hepatitis discriminant factor 28.5 Continue lactulose, monitor vital status. (3) Hypokalemia Is this a current diagnosis for this admission?: Yes Plan: Replaced. D5 NS plus potassium. BMP. Replace as needed. (4) Elevated liver enzymes Is this a current diagnosis for this admission?: Yes Plan: Likely alcoholic hepatitis. 05/26/2018. Abdominal ultrasound slightly nodular liver with fatty infiltration. Hepatitis panel negative. PT 15.9 INR 1.21 on admission AST 101 down from 193. ALT 40 down from 56. Direct bili 5.1 up from 4.6 Total bili 8.6 down from 10 Hepatitis discriminant factor 28.5 Likely due to EtOH abuse. LFTs tomorrow. Will consider GI consult if does not improve. (5) Hypomagnesemia Is this a current diagnosis for this admission?: Yes Plan: Replaced. Start daily magnesium p.o. replacement. Magnesium level tomorrow. (6) Thrombocytopenia Is this a current diagnosis for this admission?: Yes Plan: Likely due to underlying liver disease. Monitor platelets. Monitor for signs of bleeding.
[2018-05-29] MEDS: FOLIC ACID/VITAMIN B COMP W-C CAPSULE PO SCH (16:43)
[2018-05-30] MEDS: METOPROLOL TARTRATE PF/INJ 5 MG/5 ML SDV IV PRN ×2 (00:49→20:35)
[2018-05-30] MEDS: LORAZEPAM INJ 2 MG/1 ML VIAL IV SCH ×6 (01:31→21:56)
[2018-05-30 06:13] LABS: ABSOLUTE BASOPHILS # (AUTO) 0.1 10^3/uL (0.0-0.2); ABSOLUTE EOSINOPHILS # (AUTO) 0.1 10^3/uL (0.0-0.6); ABSOLUTE LYMPHOCYTES (AUTO) 1.4 10^3/uL (0.5-4.7); ABSOLUTE MONOCYTES (AUTO) 1.4 10^3/uL (0.1-1.4); ABSOLUTE NEUT (AUTO) 7.6 10^3/uL (1.7-8.2); BASOPHILS % (AUTO) 0.9 % (0-2); EOSINOPHILS % (AUTO) 0.6 % (0-6); HEMATOCRIT 27.9 % (37.9-51.0); HEMOGLOBIN 9.9 g/dL (13.5-17.0); LYMPHOCYTES % (AUTO) 13.6 % (13-45); MEAN CORPUSCULAR HEMOGLOBIN 34.2 pg (27.0-33.4); MEAN CORPUSCULAR HGB CONC 35.4 g/dL (32.0-36.0); MEAN CORPUSCULAR VOLUME 97 fl (80-97); MONOCYTES % (AUTO) 12.9 % (3-13); RED BLOOD COUNT 2.89 10^6/uL (4.35-5.55); TOTAL CELLS COUNTED % (AUTO) 100 %; WHITE BLOOD COUNT 10.5 10^3/uL (4.0-10.5)
[2018-05-30 06:32] LABS: PLATELET COUNT 67 10^3/uL (150-450)
[2018-05-30 06:40] LABS: ALANINE AMINOTRANSFERASE 43 U/L (21-72); ALBUMIN 2.7 g/dL (3.5-5.0); ALKALINE PHOSPHATASE 83 U/L (38-126); ANION GAP 10 (5-19); ASPARTATE AMINO TRANSFERASE 84 U/L (17-59); BILIRUBIN,DIRECT 7.6 mg/dL (0.0-0.4); BILIRUBIN,TOTAL 10.3 mg/dL (0.2-1.3); BLOOD UREA NITROGEN 15 mg/dL (7-20); CALCIUM 8.5 mg/dL (8.4-10.2); CARBON DIOXIDE 13 mmol/L (22-30); CHLORIDE 124 mmol/L (98-107); GLUCOSE 127 mg/dL (75-110); POTASSIUM 3.2 mmol/L (3.6-5.0); SODIUM 146.8 mmol/L (137-145); TOTAL PROTEIN 6.1 g/dL (6.3-8.2)
[2018-05-30] MEDS: POTASSI CL 30 MEQ/D5-1/2NS 1L 1000 ML IV PRN ×2 (07:24→17:04)
[2018-05-30] MEDS: MAGNESIUM OXIDE 400 MG TABLET PO SCH ×2 (09:11→17:27)
[2018-05-30] MEDS: ACETAMINOPHEN 325 MG TABLET PO PRN ×2 (09:11→17:27)
[2018-05-30] MEDS: THIAMINE HCL 100 MG TABLET PO SCH (09:11)
[2018-05-30] MEDS: LACTULOSE SYRUP 20 GM/30 ML UDCUP PO SCH ×2 (09:12→21:56)
--- NOTE | 2018-05-30 13:24 | PDOC PROGRESS REPORT ---
Subjective Progress Note for:: 05/30/18 Subjective:: No significant changes. No acute events overnight. He is still on soft two- point upper extremity restraint as he is trying to get out of his bed, interfering with his meds and removing lines. Had one episode of fever overnight. He is easily arousable oriented to his name however very low attention span and does not follow two-step commands. Denies any active visual/auditory hallucinations or formication. Denies any nausea, vomiting, diarrhea, constipation, chest pain, shortness of breath or any urinary symptoms. Reason For Visit: DTS,HEPATIC ENCEPHALOPATHY Physical Exam Vital Signs: Temp Pulse Resp BP Pulse Ox 100.5 F H 135 H 16 122/73 100 05/30/18 07:33 05/30/18 07:33 05/30/18 07:33 05/30/18 07:33 05/30/18 07:33 Intake & Output 05/29/18 05/30/18 05/31/18 06:59 06:59 06:59 Intake Total 1779 1340 1000 Output Total 2526 3100 Balance -747 -1760 1000 Weight 69.9 kg 67.4 kg General appearance: PRESENT: no acute distress, well-developed, well-nourished Head exam: PRESENT: atraumatic, normocephalic Eye exam: PRESENT: scleral icterus Respiratory exam: PRESENT: clear to auscultation titi. ABSENT: rales, rhonchi, w heezes Cardiovascular exam: PRESENT: RRR. ABSENT: diastolic murmur, rubs, systolic murmur GI/Abdominal exam: PRESENT: normal bowel sounds, soft. ABSENT: distended, guarding, mass, organolmegaly, rebound, tenderness Neurological exam: PRESENT: alert, awake, oriented to person, CN II-XII grossly intact Results Laboratory Results: 05/30/18 05:46 05/30/18 05:46 05/30/18 05/30/18 05:46 05:46 WBC 10.5 RBC 2.89 L Hgb 9.9 L Hct 27.9 L MCV 97 MCH 34.2 H MCHC 35.4 RDW 18.0 H Plt Count 67 L Seg Neutrophils % 72.0 Lymphocytes % 13.6 Monocytes % 12.9 Eosinophils % 0.6 Basophils % 0.9 Absolute Neutrophils 7.6 Absolute Lymphocytes 1.4 Absolute Monocytes 1.4 Absolute Eosinophils 0.1 Absolute Basophils 0.1 Sodium 146.8 H Potassium 3.2 L Chloride 124 H Carbon Dioxide 13 L Anion Gap 10 BUN 15 Creatinine 0.57 Est GFR ( Amer) > 60 Est GFR (Non-Af Amer) > 60 Glucose 127 H Calcium 8.5 Magnesium 1.7 Total Bilirubin 10.3 H AST 84 H ALT 43 Alkaline Phosphatase 83 Total Protein 6.1 L Albumin 2.7 L 05/26/18 04:48 Troponin I < 0.012 Impressions: Abdomen Ultrasound 05/26/18 00:00 IMPRESSION: Slightly nodular liver with fatty infiltration. Splenomegaly. No gallstones. Chest X-Ray 05/26/18 04:49 IMPRESSION: Clear lungs. Head CT 05/26/18 04:49 IMPRESSION: No acute intracranial findings. Assessment & Plan - Diagnosis (1) Alcohol intoxication Qualifiers: Complication of substance-induced condition: with unspecified complication Qualified Code(s): F10.929 - Alcohol use, unspecified with intoxication, unspecified Is this a current diagnosis for this admission?: Yes Plan: CIWA-Ar Scale 11. Serum alcohol 337 on admission. Continue benzos, D5 NS, folic acid and thiamine, monitor for DT, monitor vitals. (2) Hepatic encephalopathy Is this a current diagnosis for this admission?: Yes Plan: Ammonia 125.8 on admission Abdominal ultrasound slightly nodular liver with fatty infiltration. Hepatitis panel negative. PT 15.9 INR 1.21 on admission AST 193 down from 230 on admission. ALT 56 down from 77 on admission. Direct bili 10 from 4.6 Total bili 6.8 from 7.8 Hepatitis discriminant factor 28.5 Continue lactulose, monitor vital status. (3) Hypokalemia Is this a current diagnosis for this admission?: Yes Plan: Replaced. D5 1/2 NS plus potassium. BMP. Replace as needed. (4) Elevated liver enzymes Is this a current diagnosis for this admission?: Yes Plan: Likely alcoholic hepatitis. Not improving 05/26/2018. Abdominal ultrasound slightly nodular liver with fatty infiltration. Hepatitis panel negative. PT 15.9 INR 1.21 on admission AST 101 down from 193. ALT 40 down from 56. Direct bili 5.1 up from 4.6 Total bili 8.6 down from 10 Hepatitis discriminant factor 28.5 Likely due to EtOH abuse. LFTs tomorrow. Consult GI. (5) Hypomagnesemia Is this a current diagnosis for this admission?: Yes Plan: Replaced. Start daily magnesium p.o. replacement. Magnesium level tomorrow. (6) Thrombocytopenia Is this a current diagnosis for this admission?: Yes Plan: Likely due to underlying liver disease. Monitor platelets. Monitor for signs of bleeding.
[2018-05-30] MEDS: CEFTRIAXONE 1 GM/D5W RTU 1 GM/50 ML RTUPB IV SCH (14:32)
[2018-05-30] MEDS: POTASSIUM CHLORIDE 10 MEQ CAPSULE.ER PO SCH (14:36)
[2018-05-30] MEDS: FOLIC ACID/VITAMIN B COMP W-C CAPSULE PO SCH (17:04)
[2018-05-31] MEDS: LORAZEPAM INJ 2 MG/1 ML VIAL IV SCH ×6 (01:51→23:10)
[2018-05-31] MEDS: POTASSI CL 30 MEQ/D5-1/2NS 1L 1000 ML IV PRN (02:45)
[2018-05-31 04:56] LABS: HEMATOCRIT 24.5 % (37.9-51.0); HEMOGLOBIN 8.4 g/dL (13.5-17.0); MEAN CORPUSCULAR HEMOGLOBIN 34.3 pg (27.0-33.4); MEAN CORPUSCULAR HGB CONC 34.5 g/dL (32.0-36.0); MEAN CORPUSCULAR VOLUME 99 fl (80-97); RED BLOOD COUNT 2.46 10^6/uL (4.35-5.55); RED CELL DISTRIBUTION WIDTH 18.8 % (11.5-14.0); WHITE BLOOD COUNT 10.2 10^3/uL (4.0-10.5)
[2018-05-31] MEDS: METOPROLOL TARTRATE PF/INJ 5 MG/5 ML SDV IV PRN ×2 (05:05→13:05)
[2018-05-31 05:14] LABS: ALANINE AMINOTRANSFERASE 43 U/L (21-72); ALBUMIN 2.3 g/dL (3.5-5.0); ALKALINE PHOSPHATASE 67 U/L (38-126); ASPARTATE AMINO TRANSFERASE 57 U/L (17-59); BILIRUBIN,DIRECT 6.5 mg/dL (0.0-0.4); BILIRUBIN,TOTAL 9.4 mg/dL (0.2-1.3); BLOOD UREA NITROGEN 20 mg/dL (7-20); CALCIUM 8.3 mg/dL (8.4-10.2); GLUCOSE 143 mg/dL (75-110); POTASSIUM 4.1 mmol/L (3.6-5.0); TOTAL PROTEIN 5.2 g/dL (6.3-8.2)
[2018-05-31 05:21] LABS: PLATELET COUNT 74 10^3/uL (150-450)
[2018-05-31 05:24] LABS: ABSOLUTE LYMPHOCYTES# (MANUAL) 1.6 10^3/uL (0.5-4.7); ABSOLUTE MONOCYTES # (MANUAL) 1.4 10^3/uL (0.1-1.4); BASOPHILS % (MANUAL) 1 % (0-2); EOSINOPHILS % (MANUAL) 0 % (0-6); LYMPHOCYTES % (MANUAL) 16 % (13-45); MONOCYTES % (MANUAL) 14 % (3-13); SEGMENTED NEUTROPHILS % (MAN) 69 % (42-78); TOTAL CELLS COUNTED 100
[2018-05-31 05:26] LABS: ANISOCYTOSIS 1+; PLATELET COMMENT DECREASED; POIKILOCYTOSIS 1+; POLYCHROMASIA 1+; TARGET CELLS SLIGHT; TEAR DROP CELLS SLIGHT
[2018-05-31 05:50] LABS: CARBON DIOXIDE 16 mmol/L (22-30); CHLORIDE 127 mmol/L (98-107); SODIUM 148.3 mmol/L (137-145)
[2018-05-31 05:53] LABS: ANION GAP 5 (5-19)
[2018-05-31] MEDS: POTASSI CL 30 MEQ/D5-1/2NS 1L 30 MEQ/1,000 ML RTUINJ IV PRN (09:08)
[2018-05-31] MEDS: THIAMINE HCL 100 MG TABLET PO SCH (09:12)
[2018-05-31] MEDS: LACTULOSE SYRUP 20 GM/30 ML UDCUP PO SCH ×2 (09:13→23:10)
[2018-05-31] MEDS: POTASSIUM CHLORIDE 10 MEQ CAPSULE.ER PO SCH (09:13)
[2018-05-31] MEDS: MAGNESIUM OXIDE 400 MG TABLET PO SCH ×2 (09:13→19:53)
[2018-05-31] MEDS: CEFTRIAXONE 1 GM/D5W RTU 1 GM/50 ML RTUPB IV SCH (09:16)
--- NOTE | 2018-05-31 10:28 | PDOC PROGRESS REPORT ---
Subjective Progress Note for:: 05/31/18 Subjective:: Mild improvement no significant changes. No acute events overnight. He is easily arousable oriented to his name, cooperative however very low attention span and does not follow two-step commands. Denies any active visual/auditory hallucinations or formication. Denies any nausea, vomiting, diarrhea, constipation, chest pain, shortness of breath or any urinary symptoms. Reason For Visit: DTS,HEPATIC ENCEPHALOPATHY Physical Exam Vital Signs: Temp Pulse Resp BP Pulse Ox 97.7 F 122 H 24 H 107/65 100 05/31/18 07:28 05/31/18 07:28 05/31/18 07:28 05/31/18 07:28 05/31/18 07:28 Intake & Output 05/30/18 05/31/18 06/01/18 06:59 06:59 06:59 Intake Total 1340 4238 633 Output Total 3100 2275 Balance -1760 1963 633 Weight 67.4 kg 70.8 kg General appearance: PRESENT: no acute distress, well-developed, well-nourished Head exam: PRESENT: atraumatic, normocephalic Respiratory exam: PRESENT: clear to auscultation titi. ABSENT: rales, rhonchi, wheezes GI/Abdominal exam: PRESENT: normal bowel sounds, soft. ABSENT: distended, guard ing, mass, organolmegaly, rebound, tenderness Extremities exam: PRESENT: full ROM. ABSENT: calf tenderness, clubbing, pedal edema Neurological exam: PRESENT: alert, altered, awake, oriented to person, CN II-XII grossly intact Skin exam: PRESENT: dry, intact, warm. ABSENT: cyanosis, rash Results Laboratory Results: 05/31/18 04:04 05/31/18 04:04 05/31/18 05/31/18 04:04 04:04 WBC 10.2 RBC 2.46 L Hgb 8.4 L Hct 24.5 L MCV 99 H MCH 34.3 H MCHC 34.5 RDW 18.8 H Plt Count 74 L Seg Neutrophils % Not Reportable Lymphocytes % Not Reportable Monocytes % Not Reportable Eosinophils % Not Reportable Basophils % Not Reportable Absolute Neutrophils Not Reportable Absolute Lymphocytes Not Reportable Absolute Monocytes Not Reportable Absolute Eosinophils Not Reportable Absolute Basophils Not Reportable Sodium 148.3 H Potassium 4.1 Chloride 127 H Carbon Dioxide 16 L Anion Gap 5 BUN 20 Creatinine 0.58 Est GFR ( Amer) > 60 Est GFR (Non-Af Amer) > 60 Glucose 143 H Calcium 8.3 L Magnesium 2.2 Total Bilirubin 9.4 H AST 57 ALT 43 Alkaline Phosphatase 67 Total Protein 5.2 L Albumin 2.3 L 05/26/18 04:48 Troponin I < 0.012 Impressions: Abdomen Ultrasound 05/26/18 00:00 IMPRESSION: Slightly nodular liver with fatty infiltration. Splenomegaly. No gallstones. Chest X-Ray 05/26/18 04:49 IMPRESSION: Clear lungs. Head CT 05/26/18 04:49 IMPRESSION: No acute intracranial findings. Assessment & Plan - Diagnosis (1) Alcohol intoxication Qualifiers: Complication of substance-induced condition: with unspecified complication Qualified Code(s): F10.929 - Alcohol use, unspecified with intoxication, unspecified Is this a current diagnosis for this admission?: Yes Plan: Improving. Serum alcohol 337 on admission. Continue benzos, D5 NS, folic acid and thiamine, monitor for DT, monitor vitals. (2) Hepatic encephalopathy Is this a current diagnosis for this admission?: Yes Plan: Improving. Ammonia 125.8 on admission Abdominal ultrasound slightly nodular liver with fatty infiltration. Hepatitis panel negative. PT 15.9 INR 1.21 on admission AST 193 down from 230 on admission. ALT 56 down from 77 on admission. Direct bili 10 from 4.6 Total bili 6.8 from 7.8 Hepatitis discriminant factor 28.5 Continue lactulose, monitor vital status. (3) Hypokalemia Is this a current diagnosis for this admission?: Yes Plan: Resolved. Continue D5 1/2 NS plus potassium. BMP. Replace as needed. (4) Elevated liver enzymes Is this a current diagnosis for this admission?: Yes Plan: Likely alcoholic hepatitis. Not improving 05/26/2018. Abdominal ultrasound slightly nodular liver with fatty infiltration. Hepatitis panel negative. PT 15.9 INR 1.21 on admission AST 101 down from 193. ALT 40 down from 56. Direct bili 5.1 up from 4.6 Total bili 8.6 down from 10 Hepatitis discriminant factor 28.5 Likely due to EtOH abuse. LFTs tomorrow. Pending GI consult. (5) Hypomagnesemia Is this a current diagnosis for this admission?: Yes Plan: Resolved. Start daily magnesium p.o. replacement. Magnesium level tomorrow. (6) Thrombocytopenia Is this a current diagnosis for this admission?: Yes Plan: Improving. Likely due to underlying liver disease. Monitor platelets. Monitor for signs of bleeding.
[2018-05-31] MEDS: FOLIC ACID/VITAMIN B COMP W-C CAPSULE PO SCH (19:53)
[2018-06-01] MEDS: METOPROLOL TARTRATE PF/INJ 5 MG/5 ML SDV IV PRN ×2 (00:55→20:09)
[2018-06-01] MEDS ORDERED: NORMAL SALINE 1000 ML 2,000 ML IV ONE (01:00)
[2018-06-01] MEDS ORDERED: ATENOLOL 50 MG TABLET PO ONE (01:00)
[2018-06-01] MEDS: LORAZEPAM INJ 2 MG/1 ML VIAL IV SCH ×2 (02:48→05:26)
[2018-06-01] MEDS: POTASSI CL 30 MEQ/D5-1/2NS 1L 30 MEQ/1,000 ML RTUINJ IV PRN (05:30)
[2018-06-01 05:47] LABS: ALANINE AMINOTRANSFERASE 51 U/L (21-72); ALKALINE PHOSPHATASE 63 U/L (38-126); ASPARTATE AMINO TRANSFERASE 81 U/L (17-59); BILIRUBIN,DIRECT 7.5 mg/dL (0.0-0.4); BILIRUBIN,TOTAL 10.1 mg/dL (0.2-1.3); BLOOD UREA NITROGEN 26 mg/dL (7-20); CALCIUM 8.2 mg/dL (8.4-10.2); GLUCOSE 111 mg/dL (75-110)
[2018-06-01 05:52] LABS: CARBON DIOXIDE 14 mmol/L (22-30); CHLORIDE 133 mmol/L (98-107); SODIUM 151.4 mmol/L (137-145)
[2018-06-01 05:55] LABS: ANION GAP 4 (5-19)
[2018-06-01] MEDS ORDERED: DEXTROSE 5%-WATER 1000 ML 1,000 ML IV PRN (08:14)
[2018-06-01] MEDS ORDERED: POTASSIUM CHLORIDE 10 MEQ CAPSULE.ER PO ONE (08:22)
[2018-06-01 08:40] LABS: HEMATOCRIT 20.4 % (37.9-51.0); MEAN CORPUSCULAR HEMOGLOBIN 34.6 pg (27.0-33.4); MEAN CORPUSCULAR HGB CONC 33.1 g/dL (32.0-36.0); PLATELET COUNT 113 10^3/uL (150-450); RED BLOOD COUNT 1.95 10^6/uL (4.35-5.55); RED CELL DISTRIBUTION WIDTH 20.3 % (11.5-14.0); WHITE BLOOD COUNT 11.8 10^3/uL (4.0-10.5)
[2018-06-01 08:47] LABS: HEMOGLOBIN 6.8 g/dL (13.5-17.0)
[2018-06-01 08:48] LABS: MEAN CORPUSCULAR VOLUME 105 fl (80-97)
[2018-06-01 09:03] LABS: ABSOLUTE MONOCYTES # (MANUAL) 0.9 10^3/uL (0.1-1.4); ABSOLUTE NEUTROPHILS# (MANUAL) 5.5 10^3/uL (1.7-8.2); BASOPHILS % (MANUAL) 1 % (0-2); EOSINOPHILS % (MANUAL) 2 % (0-6); LYMPHOCYTES % (MANUAL) 42 % (13-45); MONOCYTES % (MANUAL) 8 % (3-13); NUCLEATED RED BLOOD CELLS 1 /100 WBC (0); SEGMENTED NEUTROPHILS % (MAN) 47 % (42-78); TOTAL CELLS COUNTED 100
[2018-06-01 09:04] LABS: ANISOCYTOSIS 2+; POIKILOCYTOSIS 1+; TARGET CELLS SLIGHT; TEAR DROP CELLS SLIGHT; TOXIC GRANULATION 1+
[2018-06-01 09:05] LABS: PLATELET COMMENT DECREASED
[2018-06-01] MEDS: DEXTROSE 5%-WATER 1000 ML 1,000 ML IV PRN ×2 (09:43→17:26)
--- NOTE | 2018-06-01 10:41 | PDOC PROGRESS REPORT ---
Subjective Progress Note for:: 06/01/18 Subjective:: Mild improvement no significant changes. No acute events overnight. He is easily arousable oriented to his name, cooperative however very low attention span and does not follow two-step commands. Denies any active visual/auditory hallucinations or formication. Denies any nausea, vomiting, diarrhea, constipation, chest pain, shortness of breath or any urinary symptoms. Reason For Visit: DTS,HEPATIC ENCEPHALOPATHY Physical Exam Vital Signs: Temp Pulse Resp BP Pulse Ox 97.9 F 119 H 22 H 110/51 L 100 06/01/18 07:42 06/01/18 07:42 06/01/18 07:42 06/01/18 07:42 06/01/18 07:42 Intake & Output 05/31/18 06/01/18 06/02/18 06:59 06:59 06:59 Intake Total 4238 2394 253 Output Total 2275 1675 Balance 1963 719 253 Weight 70.8 kg 72.1 kg General appearance: PRESENT: no acute distress, well-developed, well-nourished Head exam: PRESENT: atraumatic, normocephalic Respiratory exam: PRESENT: clear to auscultation titi. ABSENT: rales, rhonchi, wheezes Cardiovascular exam: PRESENT: RRR, tachycardia. ABSENT: diastolic murmur, rubs, systolic murmur GI/Abdominal exam: PRESENT: normal bowel sounds, soft. ABSENT: distended, guarding, mass, organolmegaly, rebound, tenderness Neurological exam: PRESENT: alert, awake, oriented to person, CN II-XII grossly intact, motor sensory deficit Results Laboratory Results: 06/01/18 08:08 06/01/18 04:40 06/01/18 06/01/18 06/01/18 04:40 04:40 06:57 WBC Cancelled Cancelled RBC Cancelled Cancelled Hgb Cancelled Cancelled Hct Cancelled Cancelled MCV Cancelled Cancelled MCH Cancelled Cancelled MCHC Cancelled Cancelled RDW Cancelled Cancelled Plt Count Cancelled Cancelled Seg Neutrophils % Cancelled Cancelled Lymphocytes % Cancelled Cancelled Monocytes % Cancelled Cancelled Eosinophils % Cancelled Cancelled Basophils % Cancelled Cancelled Absolute Neutrophils Cancelled Cancelled Absolute Lymphocytes Cancelled Cancelled Absolute Monocytes Cancelled Cancelled Absolute Eosinophils Cancelled Cancelled Absolute Basophils Cancelled Cancelled Sodium 151.4 H Potassium 5.0 Chloride 133 H Carbon Dioxide 14 L Anion Gap 4 L BUN 26 H Creatinine 0.59 Est GFR ( Amer) > 60 Est GFR (Non-Af Amer) > 60 Glucose 111 H Calcium 8.2 L Magnesium 2.4 H Total Bilirubin 10.1 H AST 81 H ALT 51 Alkaline Phosphatase 63 Total Protein 5.0 L Albumin 2.0 L 06/01/18 08:08 WBC 11.8 H RBC 1.95 L Hgb 6.8 L Hct 20.4 L MCV 105 H D MCH 34.6 H MCHC 33.1 RDW 20.3 H Plt Count 113 L Seg Neutrophils % Not Reportable Lymphocytes % Not Reportable Monocytes % Not Reportable Eosinophils % Not Reportable Basophils % Not Reportable Absolute Neutrophils Not Reportable Absolute Lymphocytes Not Reportable Absolute Monocytes Not Reportable Absolute Eosinophils Not Reportable Absolute Basophils Not Reportable Sodium Potassium Chloride Carbon Dioxide Anion Gap BUN Creatinine Est GFR ( Amer) Est GFR (Non-Af Amer) Glucose Calcium Magnesium Total Bilirubin AST ALT Alkaline Phosphatase Total Protein Albumin 05/26/18 04:48 Troponin I < 0.012 Impressions: Abdomen Ultrasound 05/26/18 00:00 IMPRESSION: Slightly nodular liver with fatty infiltration. Splenomegaly. No gallstones. Chest X-Ray 05/26/18 04:49 IMPRESSION: Clear lungs. Head CT 05/26/18 04:49 IMPRESSION: No acute intracranial findings. Assessment & Plan - Diagnosis (1) Anemia Qualifiers: Anemia type: unspecified type Qualified Code(s): D64.9 - Anemia, unspecified Is this a current diagnosis for this admission?: Yes Plan: Likely upper GI bleed from variceal sources. As patient has history of alcoholism. MCV >100. Guaiac positive. 06/01/2018. Iron 77.8. TIBC 205, saturation 38%, ferritin 138. B12 840, folic acid 10.8. Transfuse 1 PRBC today. Start on octreotide drip and IV PPIs and propranolol. Consult surgery for possible endoscopy. No GI consult available. NPO. (2) Alcohol intoxication Qualifiers: Complication of substance-induced condition: with unspecified complication Qualified Code(s): F10.929 - Alcohol use, unspecified with intoxication, uns pecified Is this a current diagnosis for this admission?: Yes Plan: Improving. Serum alcohol 337 on admission. Continue benzos, D5, folic acid and thiamine, monitor for DT, monitor vitals. (3) Hepatic encephalopathy Is this a current diagnosis for this admission?: Yes Plan: Improving. Ammonia 125.8 on admission Abdominal ultrasound slightly nodular liver with fatty infiltration. Hepatitis panel negative. PT 15.9 INR 1.21 on admission Hepatitis discriminant factor 28.5 Continue lactulose, monitor vital status. (4) Hypokalemia Is this a current diagnosis for this admission?: Yes Plan: Resolved. Continue p.o. potassium replacement daily. BMP. Replace as needed. (5) Elevated liver enzymes Is this a current diagnosis for this admission?: Yes Plan: Likely alcoholic hepatitis. Not improving 05/26/2018. Abdominal ultrasound slightly nodular liver with fatty infiltration. Hepatitis panel negative. PT 15.9 INR 1.21 on admission Hepatitis discriminant factor 28.5 Likely due to EtOH abuse. LFTs tomorrow. Pending GI consult. (6) Hypomagnesemia Is this a current diagnosis for this admission?: Yes Plan: Resolved. Start daily magnesium p.o. replacement. Magnesium level tomorrow. (7) Thrombocytopenia Is this a current diagnosis for this admission?: Yes Plan: Improving. Likely due to underlying liver disease. Monitor platelets. Monitor for signs of bleeding. (8) Hypernatremia Is this a current diagnosis for this admission?: Yes Plan: Switch to D5 half NS to D5. BMP this evening.
[2018-06-01 10:49] LABS: ABSOLUTE RETICS # 0.196 10^6/uL (0.028-0.122); RETICULOCYTE COUNT (AUTO) 9.86 % (0.66-2.85)
[2018-06-01 10:56] LABS: IRON(TIBC) 77.8 ug/dL (49-181)
[2018-06-01] MEDS: CEFTRIAXONE 1 GM/D5W RTU 1 GM/50 ML RTUPB IV SCH (11:21)
[2018-06-01] MEDS: CYANOCOBALAMIN (VITAMIN B-12) INJ 1000 MCG/1 ML VIAL IM SCH (11:21)
[2018-06-01] MEDS ORDERED: NORMAL SALINE 250 ML IV PRN ×3 (14:34→16:00)
[2018-06-01] MEDS: LACTULOSE SYRUP 20 GM/30 ML UDCUP PO SCH ×2 (15:53→23:11)
[2018-06-01] MEDS: THIAMINE HCL 100 MG TABLET PO SCH (15:54)
[2018-06-01] MEDS: POTASSIUM CHLORIDE 10 MEQ CAPSULE.ER PO SCH (15:54)
[2018-06-01] MEDS: MAGNESIUM OXIDE 400 MG TABLET PO SCH (15:54)
[2018-06-01 16:17] LABS: INTERNATIONAL RATION (INR) 1.78; PROTHROMBIN TIME 21.6 SEC (11.4-15.4)
[2018-06-01 16:18] LABS: PARTIAL THROMBOPLASTIN TIME 38.9 SEC (23.5-35.8)
[2018-06-01] MEDS ORDERED: NORMAL SALINE 1000 ML 1,000 ML IV ONE (16:45)
[2018-06-01] MEDS: NORMAL SALINE 500 ML with OCTREOTIDE ACETATE 500 MCG IV PRN ×2 (17:25)
[2018-06-01] MEDS ORDERED: LORAZEPAM INJ 2 MG/1 ML VIAL ONE (17:53)
[2018-06-01] MEDS: FOLIC ACID/VITAMIN B COMP W-C CAPSULE PO SCH (18:18)
[2018-06-01] MEDS: PROPRANOLOL HCL 10 MG TABLET PO SCH (18:19)
[2018-06-01] MEDS: FERROUS SULFATE 325 MG TABLET PO SCH (18:21)
--- NOTE | 2018-06-01 18:29 | RADIOLOGY REPORT (SQ) ---
EXAM DESCRIPTION: CHEST SINGLE VIEW COMPLETED DATE/TIME: 06/01/2018 6:16 pm REASON FOR STUDY: central line placement verification COMPARISON: 05/26/2018 TECHNIQUE: Single frontal radiographic view of the chest acquired. NUMBER OF VIEWS: One view. LIMITATIONS: None. FINDINGS: LUNGS AND PLEURA: No pneumothorax. No consolidation or pleural effusion. MEDIASTINUM AND HILAR STRUCTURES: Stable. HEART AND VASCULAR STRUCTURES: Stable. BONES: No acute findings. HARDWARE: New right IJ central venous catheter with tip overlying the RA -SVC junction. OTHER: No other significant finding. IMPRESSION: NO ACUTE FINDINGS. TECHNICAL DOCUMENTATION: JOB ID: [id number] 2010 [employer]- All Rights Reserved Reading location - IP/workstation name: [email or web address]
--- NOTE | 2018-06-01 18:40 | PDOC CONSULTATION ---
Consultation Consult Date: 06/01/18 Consult reason:: GI Bleed History of Present Illness Admission Date/PCP: 05/26/18 07:40 History of Present Illness: KELLI ESTEBAN is a 43 year old male admitted 05/25/18 for alcohol withdraw al/encephalopathy noted melena with HgB 6.9 from 8.4 yesterday. PT 22 secs and INR 1.8. Transfered to the ICU for encephalopathy and GI Bleeding with coagulopathy likely due to liver failure. His platelets were low and now 115. I just placed a right IJ tLC under ultrasound guidance with good position on CXR. He will continue getting PRBCs and FFP thru the central line and then repeat blood work. Past Medical History Renal/ Medical History: Reports: Other - Renal disease, unspecified GI Medical History: Reports: Other - Liver disease, unspecified Social History Lives with: Alone Smoking Status: Never Smoker Frequency of Alcohol Use: Heavy Hx Recreational Drug Use: No Drugs: None Hx Prescription Drug Abuse: No Family History Family History: Reviewed & Not Pertinent Parental Family History Reviewed: Yes Children Family History Reviewed: No Sibling(s) Family History Reviewed.: No Medication/Allergy Home Medications: No Home Medications 05/26/18 Allergies/Adverse Reactions: No Known Allergies Allergy (Verified 05/26/18 10:07) Review of Systems ROS unobtainable: Due to mental status Physical Exam Vital Signs: Temp Pulse Resp BP Pulse Ox 98.0 F 121 H 20 119/76 100 06/01/18 17:52 06/01/18 17:52 06/01/18 17:52 06/01/18 17:52 06/01/18 17:52 Intake & Output 05/31/18 06/01/18 06/02/18 06:59 06:59 06:59 Intake Total 4238 2044 870 Output Total 6811 0395 350 Balance 1963 719 520 Weight 70.8 kg 72.1 kg General appearance: PRESENT: disheveled, mild distress Head exam: PRESENT: atraumatic Eye exam: PRESENT: conjunctiva pale Mouth exam: PRESENT: dry mucosa Neck exam: PRESENT: full ROM Respiratory exam: PRESENT: clear to auscultation titi Cardiovascular exam: PRESENT: tachycardia Pulses: PRESENT: normal radial pulses Vascular exam: PRESENT: normal capillary refill GI/Abdominal exam: PRESENT: soft Rectal exam: PRESENT: other - small amount of dark stool Extremities exam: PRESENT: full ROM Musculoskeletal exam: PRESENT: full ROM Neurological exam: PRESENT: altered Psychiatric exam: PRESENT: agitated Skin exam: PRESENT: normal color, warm Results Laboratory Results: 06/01/18 08:08 06/01/18 04:40 06/01/18 06/01/18 06/01/18 04:40 04:40 04:40 WBC Cancelled RBC Cancelled Hgb Cancelled Hct Cancelled MCV Cancelled MCH Cancelled MCHC Cancelled RDW Cancelled Plt Count Cancelled Seg Neutrophils % Cancelled Lymphocytes % Cancelled Monocytes % Cancelled Eosinophils % Cancelled Basophils % Cancelled Absolute Neutrophils Cancelled Absolute Lymphocytes Cancelled Absolute Monocytes Cancelled Absolute Eosinophils Cancelled Absolute Basophils Cancelled Retic Count (auto) Absolute Retic Sodium 151.4 H Potassium 5.0 Chloride 133 H Carbon Dioxide 14 L Anion Gap 4 L BUN 26 H Creatinine 0.59 Est GFR ( Amer) > 60 Est GFR (Non-Af Amer) > 60 Glucose 111 H Calcium 8.2 L Magnesium 2.4 H Iron 77.8 TIBC 205 L % Saturation 38 Ferritin 138.00 Total Bilirubin 10.1 H AST 81 H ALT 51 Alkaline Phosphatase 63 Total Protein 5.0 L Albumin 2.0 L Vitamin B12 840.0 Folate 10.80 Stool Occult Blood Blood Type Antibody Screen 06/01/18 06/01/18 06/01/18 06:57 08:08 08:08 WBC Cancelled 11.8 H RBC Cancelled 1.95 L Hgb Cancelled 6.8 L Hct Cancelled 20.4 L MCV Cancelled 105 H D MCH Cancelled 34.6 H MCHC Cancelled 33.1 RDW Cancelled 20.3 H Plt Count Cancelled 113 L Seg Neutrophils % Cancelled Not Reportable Lymphocytes % Cancelled Not Reportable Monocytes % Cancelled Not Reportable Eosinophils % Cancelled Not Reportable Basophils % Cancelled Not Reportable Absolute Neutrophils Cancelled Not Reportable Absolute Lymphocytes Cancelled Not Reportable Absolute Monocytes Cancelled Not Reportable Absolute Eosinophils Cancelled Not Reportable Absolute Basophils Cancelled Not Reportable Retic Count (auto) 9.86 H Absolute Retic 0.196 H Sodium Potassium Chloride Carbon Dioxide Anion Gap BUN Creatinine Est GFR ( Amer) Est GFR (Non-Af Amer) Glucose Calcium Magnesium Iron TIBC % Saturation Ferritin Total Bilirubin AST ALT Alkaline Phosphatase Total Protein Albumin Vitamin B12 Folate Stool Occult Blood Blood Type Antibody Screen 06/01/18 06/01/18 14:02 15:25 WBC RBC Hgb Hct MCV MCH MCHC RDW Plt Count Seg Neutrophils % Lymphocytes % Monocytes % Eosinophils % Basophils % Absolute Neutrophils Absolute Lymphocytes Absolute Monocytes Absolute Eosinophils Absolute Basophils Retic Count (auto) Absolute Retic Sodium Potassium Chloride Carbon Dioxide Anion Gap BUN Creatinine Est GFR ( Amer) Est GFR (Non-Af Amer) Glucose Calcium Magnesium Iron TIBC % Saturation Ferritin Total Bilirubin AST ALT Alkaline Phosphatase Total Protein Albumin Vitamin B12 Folate Stool Occult Blood POSITIVE Blood Type O POSITIVE Antibody Screen NEGATIVE 05/26/18 04:48 Troponin I < 0.012 Impressions: Abdomen Ultrasound 05/26/18 00:00 IMPRESSION: Slightly nodular liver with fatty infiltration. Splenomegaly. No gallstones. Head CT 05/26/18 04:49 IMPRESSION: No acute intracranial findings. Assessment & Plan - Diagnosis (1) GI bleed Is this a current diagnosis for this admission?: Yes - Time Time Spent: 30 to 50 Minutes - Inpatient Certification Medical Necessity: Need Close Monitoring Due to Risk of Patient Decompensation, Need For IV Fluids, Need For Continuous Telemetry Monitoring, Risk of Complication if Not Cared For in Hospital - Plan Summary Plan Summary: Correct coagulopathy with FFP Transfuse Continue monitor H/H and coagulation Will follow closely, Will eventually need endoscopy
[2018-06-01] MEDS ORDERED: LORAZEPAM INJ 2 MG/1 ML VIAL IV ONE (19:00)
[2018-06-01] MEDS: LORAZEPAM INJ 2 MG/1 ML VIAL IV PRN ×2 (20:08→22:31)
[2018-06-01] MEDS: PANTOPRAZOLE SODIUM 40 MG VIAL IV SCH (20:09)
[2018-06-01] MEDS ORDERED: ATENOLOL 50 MG TABLET PO SCH (22:00)
--- NOTE | 2018-06-02 00:53 | OPERATIVE REPORT E ---
Operative Report NAME: KELLI ESTEBAN : 1975 AGE: 43Y DATE OF SURGERY: 06/01/2018 ROOM: 607 PREOPERATIVE DIAGNOSIS: POOR VEINS FOR INTRAVENOUS ACCESS, NEEDED CENTRAL LINE FOR BLOOD AND BLOOD PRODUCTS. POSTOPERATIVE DIAGNOSIS: POOR VEINS FOR INTRAVENOUS ACCESS, NEEDED CENTRAL LINE FOR BLOOD AND BLOOD PRODUCTS. PROCEDURE: Placement of right internal jugular vein catheter under ultrasound guidance. SURGEON: CHEO OLIVIER M.D. ANESTHESIA: Local. INDICATION: This is a 43-year-old male with GI bleed and coagulopathy, needed blood and fresh frozen plasma immediately and, therefore, needed a central line access. DESCRIPTION OF PROCEDURE: The patient was placed in Trendelenburg position, given 10 mg of IV Ativan. The right internal jugular vein was then planned to be the access site. The right neck of the patient was then prepped and draped in the usual sterile fashion. Local anesthesia infiltrated over the internal jugular vein site and the internal jugular vein was subsequently punctured and blood nonpulsatile, dark blood flowed. A guidewire passed through the needle towards the area of the superior vena cava. The needle was removed and the puncture site dilated. A triple-lumen catheter was then inserted through the guidewire to a distance of about 17 cm. The catheter was then anchored to the skin with 3-0 Silk and all the 3 ports aspirated blood easily and instilled saline easily. A Biopatch placed at the insertion site and a transparent sterile dressing placed over the Biopatch and catheter. The patient tolerated the procedure well. Chest x-ray was done for placement. DICTATING PHYSICIAN: CHEO OLIVIER M.D. [id number] Y#: [id number] ID: [id number] JOB#: [id number] ACCT: [id number] cc:CHEO OLIVIER M.D. >
[2018-06-02] MEDS: NORMAL SALINE 500 ML with OCTREOTIDE ACETATE 500 MCG IV PRN ×4 (03:43→14:46)
[2018-06-02] MEDS: DEXTROSE 5%-WATER 1000 ML 1,000 ML IV PRN ×2 (03:47→18:07)
[2018-06-02] MEDS: LORAZEPAM INJ 2 MG/1 ML VIAL IV PRN ×5 (04:16→22:38)
[2018-06-02 04:52] LABS: ALANINE AMINOTRANSFERASE 53 U/L (21-72); ALKALINE PHOSPHATASE 58 U/L (38-126); ASPARTATE AMINO TRANSFERASE 78 U/L (17-59); BLOOD UREA NITROGEN 26 mg/dL (7-20); CALCIUM 7.7 mg/dL (8.4-10.2); GLUCOSE 95 mg/dL (75-110); TOTAL PROTEIN 4.8 g/dL (6.3-8.2)
[2018-06-02 04:57] LABS: CARBON DIOXIDE 17 mmol/L (22-30); CHLORIDE 133 mmol/L (98-107); SODIUM 151.4 mmol/L (137-145)
[2018-06-02 05:24] LABS: ANION GAP 1 (5-19); BILIRUBIN,TOTAL 7.1 mg/dL (0.2-1.3); POTASSIUM 3.9 mmol/L (3.6-5.0)
[2018-06-02 05:40] LABS: HEMATOCRIT 21.4 % (37.9-51.0); MEAN CORPUSCULAR HEMOGLOBIN 33.5 pg (27.0-33.4); MEAN CORPUSCULAR HGB CONC 33.9 g/dL (32.0-36.0); RED BLOOD COUNT 2.16 10^6/uL (4.35-5.55); RED CELL DISTRIBUTION WIDTH 19.5 % (11.5-14.0)
[2018-06-02 06:13] LABS: MEAN CORPUSCULAR VOLUME 99 fl (80-97)
[2018-06-02 06:14] LABS: PLATELET COUNT 86 10^3/uL (150-450)
[2018-06-02 06:21] LABS: ABSOLUTE LYMPHOCYTES# (MANUAL) 1.7 10^3/uL (0.5-4.7); ABSOLUTE MONOCYTES # (MANUAL) 0.5 10^3/uL (0.1-1.4); ABSOLUTE NEUTROPHILS# (MANUAL) 3.8 10^3/uL (1.7-8.2); BASOPHILS % (MANUAL) 0 % (0-2); EOSINOPHILS % (MANUAL) 1 % (0-6); LYMPHOCYTES % (MANUAL) 28 % (13-45); MONOCYTES % (MANUAL) 8 % (3-13); SEGMENTED NEUTROPHILS % (MAN) 63 % (42-78); TOTAL CELLS COUNTED 100
[2018-06-02 06:22] LABS: ANISOCYTOSIS 2+; BURR CELLS 1+; PLATELET COMMENT DECREASED; POLYCHROMASIA 2+
[2018-06-02 06:24] LABS: HEMOGLOBIN 7.3 g/dL (13.5-17.0)
[2018-06-02] MEDS ORDERED: NORMAL SALINE 250 ML IV PRN ×2 (07:48)
[2018-06-02 07:53] LABS: INTERNATIONAL RATION (INR) 1.61
[2018-06-02 08:08] LABS: PARTIAL THROMBOPLASTIN TIME 22.1 SEC (23.5-35.8)
--- NOTE | 2018-06-02 11:59 | PDOC PROGRESS REPORT ---
Subjective Progress Note for:: 06/02/18 Subjective:: Still agitated but no BM today Reason For Visit: DTS,HEPATIC ENCEPHALOPATHY Physical Exam Vital Signs: Temp Pulse Resp BP Pulse Ox 98.2 F 108 H 20 111/71 100 06/02/18 10:58 06/02/18 10:58 06/02/18 10:58 06/02/18 10:58 06/02/18 10:00 Intake & Output 06/01/18 06/02/18 06/03/18 06:59 06:59 06:59 Intake Total 4394 4631 0 Output Total 1675 1765 225 Balance 1169 2866 -225 Weight 72.1 kg Exam: Still agitated and needed restraints HgB 7.3 after 2 units PRBCs PT 20 sec,INR 1.61 after 2 units FFP Results Laboratory Results: 06/02/18 05:20 06/02/18 04:15 06/01/18 06/01/18 06/01/18 04:40 14:02 15:25 WBC RBC Hgb Hct MCV MCH MCHC RDW Plt Count Seg Neutrophils % Lymphocytes % Monocytes % Eosinophils % Basophils % Absolute Neutrophils Absolute Lymphocytes Absolute Monocytes Absolute Eosinophils Absolute Basophils Sodium Potassium Chloride Carbon Dioxide Anion Gap BUN Creatinine Est GFR ( Amer) Est GFR (Non-Af Amer) Glucose Calcium Magnesium Iron 77.8 TIBC 205 L % Saturation 38 Ferritin 138.00 Total Bilirubin AST ALT Alkaline Phosphatase Ammonia Total Protein Albumin Vitamin B12 840.0 Folate 10.80 Stool Occult Blood POSITIVE Blood Type O POSITIVE Antibody Screen NEGATIVE 06/02/18 06/02/18 06/02/18 04:15 04:15 04:15 WBC Cancelled RBC Cancelled Hgb Cancelled Hct Cancelled MCV Cancelled MCH Cancelled MCHC Cancelled RDW Cancelled Plt Count Cancelled Seg Neutrophils % Cancelled Lymphocytes % Cancelled Monocytes % Cancelled Eosinophils % Cancelled Basophils % Cancelled Absolute Neutrophils Cancelled Absolute Lymphocytes Cancelled Absolute Monocytes Cancelled Absolute Eosinophils Cancelled Absolute Basophils Cancelled Sodium 151.4 H Potassium 3.9 D Chloride 133 H Carbon Dioxide 17 L Anion Gap 1 L BUN 26 H Creatinine 0.68 Est GFR ( Amer) > 60 Est GFR (Non-Af Amer) > 60 Glucose 95 Calcium 7.7 L Magnesium 2.3 Iron TIBC % Saturation Ferritin Total Bilirubin 7.1 H D AST 78 H ALT 53 Alkaline Phosphatase 58 Ammonia 43.9 H Total Protein 4.8 L Albumin 2.0 L Vitamin B12 Folate Stool Occult Blood Blood Type Antibody Screen 06/02/18 05:20 WBC 6.0 RBC 2.16 L Hgb 7.3 L Hct 21.4 L MCV 99 H D MCH 33.5 H MCHC 33.9 RDW 19.5 H Plt Count 86 L Seg Neutrophils % Not Reportable Lymphocytes % Not Reportable Monocytes % Not Reportable Eosinophils % Not Reportable Basophils % Not Reportable Absolute Neutrophils Not Reportable Absolute Lymphocytes Not Reportable Absolute Monocytes Not Reportable Absolute Eosinophils Not Reportable Absolute Basophils Not Reportable Sodium Potassium Chloride Carbon Dioxide Anion Gap BUN Creatinine Est GFR ( Amer) Est GFR (Non-Af Amer) Glucose Calcium Magnesium Iron TIBC % Saturation Ferritin Total Bilirubin AST ALT Alkaline Phosphatase Ammonia Total Protein Albumin Vitamin B12 Folate Stool Occult Blood Blood Type Antibody Screen 05/26/18 04:48 Troponin I < 0.012 Impressions: Abdomen Ultrasound 05/26/18 00:00 IMPRESSION: Slightly nodular liver with fatty infiltration. Splenomegaly. No gallstones. Head CT 05/26/18 04:49 IMPRESSION: No acute intracranial findings. Chest X-Ray 06/01/18 00:00 IMPRESSION: NO ACUTE FINDINGS. Assessment & Plan - Diagnosis (1) GI bleed Is this a current diagnosis for this admission?: Yes - Time Time Spent with patient: 15-24 minutes - Plan Summary Plan Summary: Transfuse 2 more units PRBCs and 2 units FFP For possible EGD tomorrow.
[2018-06-02] MEDS: THIAMINE HCL 100 MG TABLET PO SCH (13:51)
[2018-06-02] MEDS: FERROUS SULFATE 325 MG TABLET PO SCH ×2 (13:51→17:28)
[2018-06-02] MEDS: MAGNESIUM OXIDE 400 MG TABLET PO SCH (13:51)
[2018-06-02] MEDS: POTASSIUM CHLORIDE 10 MEQ CAPSULE.ER PO SCH (13:51)
[2018-06-02] MEDS: LACTULOSE SYRUP 20 GM/30 ML UDCUP PO SCH ×2 (13:51→22:37)
[2018-06-02] MEDS: PROPRANOLOL HCL 10 MG TABLET PO SCH (13:51)
[2018-06-02] MEDS: PANTOPRAZOLE SODIUM 40 MG VIAL IV SCH ×2 (14:11→18:06)
[2018-06-02] MEDS: CEFTRIAXONE 1 GM/D5W RTU 1 GM/50 ML RTUPB IV SCH (14:11)
[2018-06-02] MEDS: CYANOCOBALAMIN (VITAMIN B-12) INJ 1000 MCG/1 ML VIAL IM SCH (14:12)
--- NOTE | 2018-06-02 14:18 | PDOC PROGRESS REPORT ---
Subjective Progress Note for:: 06/02/18 Subjective:: Patient had to be transferred to ICU after it was noted that he was having melena, and his hemoglobin had dropped to 6.8. Surgery was consulted for possible upper GI endoscopy but it was held in favor of correcting his coagulopathy and supportive transfusions. Status post 4 PRBC/FFP transfusions 2 on 06/01/2018 and 2 on 05/25/2018. No active sign of bleeding and vitals are stable. Surgery following up. Possible endoscopy tomorrow. She is alert only to person, in no apparent distress, alert, denies any fever, chills, nausea, vomiting, abdominal pain, shortness of breath, chest pain. Reason For Visit: DTS,HEPATIC ENCEPHALOPATHY Physical Exam Vital Signs: Temp Pulse Resp BP Pulse Ox 97.4 F 112 H 20 118/67 100 06/02/18 12:44 06/02/18 12:44 06/02/18 12:44 06/02/18 12:44 06/02/18 12:44 Intake & Output 06/01/18 06/02/18 06/03/18 06:59 06:59 06:59 Intake Total 4394 4631 300 Output Total 1675 1765 325 Balance 2719 2866 -25 Weight 72.1 kg General appearance: PRESENT: no acute distress, well-developed, well-nourished Head exam: PRESENT: atraumatic, normocephalic Respiratory exam: PRESENT: clear to auscultation titi. ABSENT: rales, rhonchi, wheezes Cardiovascular exam: PRESENT: RRR. ABSENT: diastolic murmur, rubs, systolic murmur GI/Abdominal exam: PRESENT: normal bowel sounds, soft. ABSENT: distended, guarding, mass, organolmegaly, rebound, tenderness Extremities exam: PRESENT: full ROM. ABSENT: calf tenderness, clubbing, pedal edema Neurological exam: PRESENT: alert, awake, oriented to person, CN II-XII grossly intact Results Laboratory Results: 06/02/18 05:20 06/02/18 04:15 06/01/18 06/01/18 06/02/18 14:02 15:25 04:15 WBC RBC Hgb Hct MCV MCH MCHC RDW Plt Count Seg Neutrophils % Lymphocytes % Monocytes % Eosinophils % Basophils % Absolute Neutrophils Absolute Lymphocytes Absolute Monocytes Absolute Eosinophils Absolute Basophils Sodium Potassium Chloride Carbon Dioxide Anion Gap BUN Creatinine Est GFR ( Amer) Est GFR (Non-Af Amer) Glucose Calcium Magnesium Total Bilirubin AST ALT Alkaline Phosphatase Ammonia 43.9 H Total Protein Albumin Stool Occult Blood POSITIVE Blood Type O POSITIVE Antibody Screen NEGATIVE 06/02/18 06/02/18 06/02/18 04:15 04:15 05:20 WBC Cancelled 6.0 RBC Cancelled 2.16 L Hgb Cancelled 7.3 L Hct Cancelled 21.4 L MCV Cancelled 99 H D MCH Cancelled 33.5 H MCHC Cancelled 33.9 RDW Cancelled 19.5 H Plt Count Cancelled 86 L Seg Neutrophils % Cancelled Not Reportable Lymphocytes % Cancelled Not Reportable Monocytes % Cancelled Not Reportable Eosinophils % Cancelled Not Reportable Basophils % Cancelled Not Reportable Absolute Neutrophils Cancelled Not Reportable Absolute Lymphocytes Cancelled Not Reportable Absolute Monocytes Cancelled Not Reportable Absolute Eosinophils Cancelled Not Reportable Absolute Basophils Cancelled Not Reportable Sodium 151.4 H Potassium 3.9 D Chloride 133 H Carbon Dioxide 17 L Anion Gap 1 L BUN 26 H Creatinine 0.68 Est GFR ( Amer) > 60 Est GFR (Non-Af Amer) > 60 Glucose 95 Calcium 7.7 L Magnesium 2.3 Total Bilirubin 7.1 H D AST 78 H ALT 53 Alkaline Phosphatase 58 Ammonia Total Protein 4.8 L Albumin 2.0 L Stool Occult Blood Blood Type Antibody Screen 05/26/18 04:48 Troponin I < 0.012 Impressions: Abdomen Ultrasound 05/26/18 00:00 IMPRESSION: Slightly nodular liver with fatty infiltration. Splenomegaly. No gallstones. Head CT 05/26/18 04:49 IMPRESSION: No acute intracranial findings. Chest X-Ray 06/01/18 00:00 IMPRESSION: NO ACUTE FINDINGS. Assessment & Plan - Diagnosis (1) Upper GI bleed Is this a current diagnosis for this admission?: Yes Plan: Most likely due to variceal bleeding caused by underlying cirrhosis secondary to continued alcohol abuse. Status post 4 PRBC/FFP transfusion. Continue octreotide drip, IV PPI, propranolol, ceftriaxone and IV fluids. Monitor H&H. Transfuse if actively bleeding, hemoglobin less than 7, or symptomatic. Surgery following. Possible upper GI endoscopy tomorrow. (2) Anemia Qualifiers: Anemia type: unspecified type Qualified Code(s): D64.9 - Anemia, unspecified Is this a current diagnosis for this admission?: Yes Plan: Likely upper GI bleed from variceal sources. As patient has history of alcoholism. MCV >100. Guaiac positive. 06/01/2018. Iron 77.8. TIBC 205, saturation 38%, ferritin 138. B12 840, folic acid 10.8. (3) Alcohol intoxication Qualifiers: Complication of substance-induced condition: with unspecified complication Qualified Code(s): F10.929 - Alcohol use, unspecified with intoxication, unspecified Is this a current diagnosis for this admission?: Yes Plan: Improving. Serum alcohol 337 on admission. Continue benzos, D5, folic acid and thiamine, monitor for DT, monitor vitals. (4) Hepatic encephalopathy Is this a current diagnosis for this admission?: Yes Plan: Improving. Repeat ammonia level 47. Ammonia 125.8 on admission Abdominal ultrasound slightly nodular liver with fatty infiltration. Hepatitis panel negative. PT 15.9 INR 1.21 on admission Hepatitis discriminant factor 28.5 Continue lactulose, monitor vital status. (5) Hypokalemia Is this a current diagnosis for this admission?: Yes Plan: Resolved. Continue p.o. potassium replacement daily. BMP. Replace as needed. (6) Elevated liver enzymes Is this a current diagnosis for this admission?: Yes Plan: Likely alcoholic hepatitis. Not improving 05/26/2018. Abdominal ultrasound slightly nodular liver with fatty infiltration. Hepatitis panel negative. PT 15.9 INR 1.21 on admission Hepatitis discriminant factor 28.5 Likely due to EtOH abuse. LFTs tomorrow. Pending GI consult. (7) Hypomagnesemia Is this a current diagnosis for this admission?: Yes Plan: Resolved. Start daily magnesium p.o. replacement. Magnesium level tomorrow. (8) Thrombocytopenia Is this a current diagnosis for this admission?: Yes Plan: Improving. Likely due to underlying liver disease. Monitor platelets. Monitor for signs of bleeding. (9) Hypernatremia Is this a current diagnosis for this admission?: Yes Plan: Switch to D5 half NS to D5. BMP this evening.
[2018-06-02] MEDS: FOLIC ACID/VITAMIN B COMP W-C CAPSULE PO SCH (16:18)
[2018-06-02] MEDS: CHLORPROMAZINE HCL INJ 25 MG/1 ML AMPULE IV PRN (22:46)
[2018-06-02] MEDS ORDERED: CHLORPROMAZINE HCL INJ 25 MG/1 ML AMPULE ONE (22:46)
[2018-06-03] MEDS: LORAZEPAM INJ 2 MG/1 ML VIAL IV PRN ×4 (00:04→11:21)
[2018-06-03] MEDS: NORMAL SALINE 500 ML with OCTREOTIDE ACETATE 500 MCG IV PRN ×4 (00:53→09:47)
[2018-06-03] MEDS ORDERED: CHLORPROMAZINE HCL INJ 25 MG/1 ML AMPULE ONE (04:45)
[2018-06-03] MEDS: CHLORPROMAZINE HCL INJ 25 MG/1 ML AMPULE IV PRN (04:50)
[2018-06-03] MEDS: DEXTROSE 5%-WATER 1000 ML 1,000 ML IV PRN (06:16)
[2018-06-03 06:18] LABS: HEMATOCRIT 23.7 % (37.9-51.0); HEMOGLOBIN 8.3 g/dL (13.5-17.0); MEAN CORPUSCULAR HEMOGLOBIN 34.4 pg (27.0-33.4); MEAN CORPUSCULAR HGB CONC 35.1 g/dL (32.0-36.0); MEAN CORPUSCULAR VOLUME 98 fl (80-97); RED BLOOD COUNT 2.42 10^6/uL (4.35-5.55); RED CELL DISTRIBUTION WIDTH 19.2 % (11.5-14.0)
[2018-06-03 06:34] LABS: ALANINE AMINOTRANSFERASE 61 U/L (21-72); ALBUMIN 2.3 g/dL (3.5-5.0); ALKALINE PHOSPHATASE 62 U/L (38-126); ASPARTATE AMINO TRANSFERASE 115 U/L (17-59); BILIRUBIN,DIRECT 5.3 mg/dL (0.0-0.4); BILIRUBIN,TOTAL 7.8 mg/dL (0.2-1.3); BLOOD UREA NITROGEN 21 mg/dL (7-20); CALCIUM 7.4 mg/dL (8.4-10.2); CARBON DIOXIDE 17 mmol/L (22-30); CHLORIDE 130 mmol/L (98-107); GLUCOSE 87 mg/dL (75-110); POTASSIUM 3.6 mmol/L (3.6-5.0); TOTAL PROTEIN 5.1 g/dL (6.3-8.2)
[2018-06-03 06:39] LABS: SODIUM 150.5 mmol/L (137-145)
[2018-06-03 06:41] LABS: PLATELET COUNT 73 10^3/uL (150-450)
[2018-06-03 06:44] LABS: ANION GAP 4 (5-19)
[2018-06-03 06:46] LABS: ABSOLUTE LYMPHOCYTES# (MANUAL) 1.1 10^3/uL (0.5-4.7); ABSOLUTE MONOCYTES # (MANUAL) 0.1 10^3/uL (0.1-1.4); ABSOLUTE NEUTROPHILS# (MANUAL) 2.6 10^3/uL (1.7-8.2); BASOPHILS % (MANUAL) 1 % (0-2); EOSINOPHILS % (MANUAL) 4 % (0-6); LYMPHOCYTES % (MANUAL) 28 % (13-45); MONOCYTES % (MANUAL) 2 % (3-13); SEGMENTED NEUTROPHILS % (MAN) 65 % (42-78); TOTAL CELLS COUNTED 100
[2018-06-03 06:47] LABS: ANISOCYTOSIS 2+; BURR CELLS 2+; POIKILOCYTOSIS 3+; TOXIC GRANULATION 1+; TOXIC VACUOLATION PRESENT
[2018-06-03 06:48] LABS: OVALOCYTES 1+; TEAR DROP CELLS 1+
[2018-06-03 06:50] LABS: PLATELET COMMENT DECREASED
[2018-06-03] MEDS ORDERED: HYDRALAZINE HCL INJ/PF 20 MG/1 ML SDV IV PRN (07:47)
[2018-06-03] MEDS: PROPRANOLOL HCL 10 MG TABLET PO SCH (09:43)
[2018-06-03] MEDS: POTASSIUM CHLORIDE 10 MEQ CAPSULE.ER PO SCH (09:43)
[2018-06-03] MEDS: FERROUS SULFATE 325 MG TABLET PO SCH ×2 (09:43→19:13)
[2018-06-03] MEDS: THIAMINE HCL 100 MG TABLET PO SCH (09:43)
[2018-06-03] MEDS: MAGNESIUM OXIDE 400 MG TABLET PO SCH (09:43)
[2018-06-03] MEDS: CEFTRIAXONE 1 GM/D5W RTU 1 GM/50 ML RTUPB IV SCH (09:46)
[2018-06-03] MEDS: PANTOPRAZOLE SODIUM 40 MG VIAL IV SCH ×2 (09:47→19:13)
[2018-06-03] MEDS: CYANOCOBALAMIN (VITAMIN B-12) INJ 1000 MCG/1 ML VIAL IM SCH (09:47)
--- NOTE | 2018-06-03 14:00 | PDOC PROGRESS REPORT ---
Subjective Progress Note for:: 06/03/18 Subjective:: 06/02/2018. Patient had to be transferred to ICU after it was noted that he was having melena, and his hemoglobin had dropped to 6.8. Surgery was consulted for possible upper GI endoscopy but it was held in favor of correcting his coagulopathy and supportive transfusions. Status post 4 PRBC/FFP transfusions 2 on 06/01/2018 and 2 on 05/25/2018. No active sign of bleeding and vitals are stable. Surgery following up. Possible endoscopy tomorrow. She is alert only to person, in no apparent distress, alert, denies any fever, chills, nausea, vomiting, abdominal pain, shortness of breath, chest pain. 02/2019. No acute events overnight. Patient has not had any recurrence of his melena. H&H stable. Patient is n.p.o. scheduled for upper GI endoscopy today. Currently he is on octreotide drip and IV PPIs. Patient is alert and oriented x2. More alert than yesterday and cooperative with physical examination. Still very low attention span. He denies any fever, chills, nausea, vomiting, diarrhea, constipation or any urinary symptoms. Reason For Visit: DTS,HEPATIC ENCEPHALOPATHY Physical Exam Vital Signs: Temp Pulse Resp BP Pulse Ox 97.5 F 111 H 20 111/96 H 97 06/03/18 12:00 06/03/18 12:00 06/03/18 12:00 06/03/18 12:00 06/03/18 12:00 Intake & Output 06/02/18 06/03/18 06/04/18 06:59 06:59 06:59 Intake Total 4631 4183 445 Output Total 1765 2025 255 Balance 2866 2158 190 Weight 70.6 kg 72.9 kg General appearance: PRESENT: no acute distress, well-developed, well-nourished Head exam: PRESENT: atraumatic, normocephalic Neck exam: ABSENT: carotid bruit, JVD, lymphadenopathy, thyromegaly Respiratory exam: PRESENT: clear to auscultation titi. ABSENT: rales, rhonchi, wheezes Cardiovascular exam: PRESENT: RRR. ABSENT: diastolic murmur, rubs, systolic murmur GI/Abdominal exam: PRESENT: normal bowel sounds, soft. ABSENT: distended, guarding, mass, organolmegaly, rebound, tenderness Extremities exam: PRESENT: full ROM. ABSENT: calf tenderness, clubbing, pedal edema Neurological exam: PRESENT: alert, awake, oriented to person, oriented to place, CN II-XII grossly intact, motor sensory deficit Results Laboratory Results: 06/03/18 06:00 06/03/18 06:00 06/01/18 06/03/18 06/03/18 15:25 06:00 06:00 WBC 4.0 RBC 2.42 L Hgb 8.3 L Hct 23.7 L MCV 98 H MCH 34.4 H MCHC 35.1 RDW 19.2 H Plt Count 73 L Seg Neutrophils % Not Reportable Lymphocytes % Not Reportable Monocytes % Not Reportable Eosinophils % Not Reportable Basophils % Not Reportable Absolute Neutrophils Not Reportable Absolute Lymphocytes Not Reportable Absolute Monocytes Not Reportable Absolute Eosinophils Not Reportable Absolute Basophils Not Reportable Sodium 150.5 H Potassium 3.6 Chloride 130 H Carbon Dioxide 17 L Anion Gap 4 L BUN 21 H Creatinine 0.66 Est GFR ( Amer) > 60 Est GFR (Non-Af Amer) > 60 Glucose 87 Calcium 7.4 L Magnesium 1.9 Total Bilirubin 7.8 H AST 115 H ALT 61 Alkaline Phosphatase 62 Total Protein 5.1 L Albumin 2.3 L Blood Type O POSITIVE Antibody Screen NEGATIVE 05/26/18 04:48 Troponin I < 0.012 Impressions: Abdomen Ultrasound 05/26/18 00:00 IMPRESSION: Slightly nodular liver with fatty infiltration. Splenomegaly. No gallstones. Head CT 05/26/18 04:49 IMPRESSION: No acute intracranial findings. Chest X-Ray 06/01/18 00:00 IMPRESSION: NO ACUTE FINDINGS. Assessment & Plan - Diagnosis (1) Upper GI bleed Is this a current diagnosis for this admission?: Yes Plan: Most likely due to variceal bleeding caused by underlying cirrhosis secondary to continued alcohol abuse. Status post 4 PRBC/FFP transfusion. Continue octreotide drip, IV PPI, propranolol, ceftriaxone and IV fluids. Monitor H&H. Transfuse if actively bleeding, hemoglobin less than 7, or symptomatic. Surgery following. EGD today. Follow-up EGD report. Note recommendations. (2) Anemia Qualifiers: Anemia type: unspecified type Qualified Code(s): D64.9 - Anemia, unspecified Is this a current diagnosis for this admission?: Yes Plan: Due to upper GI bleed likely from variceal sources. As patient has history of alcoholism. MCV >100. Guaiac positive. 06/01/2018. Iron 77.8. TIBC 205, saturation 38%, ferritin 138. B12 840, folic acid 10.8. (3) Alcohol intoxication Qualifiers: Complication of substance-induced condition: with unspecified complication Qualified Code(s): F10.929 - Alcohol use, unspecified with intoxication, unspecified Is this a current diagnosis for this admission?: Yes Plan: Improving. Serum alcohol 337 on admission. Continue benzos, D5, folic acid and thiamine, monitor for DT, monitor vitals. (4) Hepatic encephalopathy Is this a current diagnosis for this admission?: Yes Plan: Improving. Repeat ammonia level 47. Ammonia 125.8 on admission Abdominal ultrasound slightly nodular liver with fatty infiltration. Hepatitis panel negative. PT 15.9 INR 1.21 on admission Hepatitis discriminant factor 28.5 Continue lactulose, monitor vital status. (5) Hypokalemia Is this a current diagnosis for this admission?: Yes Plan: Resolved. Continue p.o. potassium replacement daily. BMP. Replace as needed. (6) Elevated liver enzymes Is this a current diagnosis for this admission?: Yes Plan: Likely alcoholic hepatitis. Not improving 05/26/2018. Abdominal ultrasound slightly nodular liver with fatty infiltration. Hepatitis panel negative. PT 15.9 INR 1.21 on admission Hepatitis discriminant factor 28.5 Likely due to EtOH abuse. LFTs tomorrow. Pending GI consult. (7) Hypomagnesemia Is this a current diagnosis for this admission?: Yes Plan: Resolved. Start daily magnesium p.o. replacement. Magnesium level tomorrow. (8) Thrombocytopenia Is this a current diagnosis for this admission?: Yes Plan: Platelets trending down. Hold DVT prophylaxis. Likely due to underlying liver disease. Monitor platelets. Monitor for signs of bleeding. (9) Hypernatremia Is this a current diagnosis for this admission?: Yes Plan: Switch to D5 half NS to D5. BMP this evening.
[2018-06-03] MEDS: LACTULOSE SYRUP 20 GM/30 ML UDCUP PO SCH ×2 (15:06→22:37)
[2018-06-03] MEDS ORDERED: MIDAZOLAM 2 MG/2 ML INJ ONE (16:15)
[2018-06-03] MEDS ORDERED: PROPOFOL INJ 200 MG/20 ML VIAL IV ONE (16:15)
[2018-06-03] MEDS ORDERED: FENTANYL CITRATE INJ/PF 100 MCG/2 ML AMPUL IV PRN ×3 (16:24)
[2018-06-03] MEDS ORDERED: MEPERIDINE HCL/PF INJ 25 MG/1 ML DISP.SYRIN IV PRN (16:24)
[2018-06-03] MEDS ORDERED: PROMETHAZINE HCL INJ 25 MG/1 ML VIAL IV PRN ×2 (16:24)
[2018-06-03] MEDS ORDERED: DIPHENHYDRAMINE HCL 50 MG/ML VIAL IV PRN (16:24)
--- NOTE | 2018-06-03 18:14 | Operative Report ---
Nonrecallable Operative Report DATE OF SURGERY: 06/03/18 PREOPERATIVE DIAGNOSIS: Abdominal pain; hematemesis; alcohol abuse; hepatic encephalopathy POSTOPERATIVE DIAGNOSIS: Same; no evidence of acute gastrointestinal hemorrhage; chronic and acute esophagitis; gastritis moderate OPERATION: 1. Esophagogastroduodenoscopy. 2. Biopsies of the mid to distal esophagus. 3. Biopsy of gastric antrum SURGEON: YUE HERNANDEZ ANESTHESIA: LMAC TISSUE REMOVED OR ALTERED: Mucosal biopsies COMPLICATIONS: 0 ESTIMATED BLOOD LOSS: Scant INTRAOPERATIVE FINDINGS: See below PROCEDURE: Patient was taken to the preop holding area to the main operating room where LMAC anesthesia was induced. He was placed in the left lateral cubitus position semirecumbent oral mouthpiece inserted. Surgical plan surgical timeout were conducted The flexible adult upper endoscope and inserted in the oropharynx. The palate was significant for a an area of hemorrhage, possible underlying ulceration although the clot was not washed off. Of note there was retained incompletely digested food particulate in the hypopharynx which was aspirated out. The scope was advanced through the upper esophageal sphincter, down the esophagus through the stomach into the first and second portions of the duodenum. Of note there was a moderate amount of bilious gastric contents some refluxing actively into the lower esophagus. The first and second portion of the duodenum were grossly normal. The pylorus was normal. The gastric antrum was consistent with moderate gastritis. Biopsy obtained for DESIREE testing. No evidence of tumor stricture junction. The Z line was at approximately 39 cm from the incisor. The mid to distal thirds of the esophagus was significant for patchy white plaque-like lesions. Biopsy was obtained with a cold forceps device. There was no evidence of esophageal varices, tumor stricture, or bleeding. The findings were significant for chronic esophagitis. Scope was brought back to the oropharynx. Patient taught procedure well. No complications. Impression: Moderate to severe esophagitis likely related to alcohol abuse; rule out obscure etiologies in immunosuppressed patient; moderate antritis Recommendations 1. Medical management per hospitalist service 2. Surgery will sign off; reconsult if needed.
[2018-06-03] MEDS: FOLIC ACID/VITAMIN B COMP W-C CAPSULE PO SCH (19:13)
[2018-06-03 22:01] LABS: ABSOLUTE EOSINOPHILS # (AUTO) 0.1 10^3/uL (0.0-0.6); ABSOLUTE LYMPHOCYTES (AUTO) 0.7 10^3/uL (0.5-4.7); ABSOLUTE MONOCYTES (AUTO) 0.4 10^3/uL (0.1-1.4); ABSOLUTE NEUT (AUTO) 1.9 10^3/uL (1.7-8.2); BASOPHILS % (AUTO) 1.1 % (0-2); EOSINOPHILS % (AUTO) 2.1 % (0-6); HEMOGLOBIN 8.5 g/dL (13.5-17.0); LYMPHOCYTES % (AUTO) 22.4 % (13-45); MEAN CORPUSCULAR HEMOGLOBIN 33.9 pg (27.0-33.4); MEAN CORPUSCULAR HGB CONC 34.2 g/dL (32.0-36.0); MEAN CORPUSCULAR VOLUME 99 fl (80-97); MONOCYTES % (AUTO) 13.3 % (3-13); RED BLOOD COUNT 2.52 10^6/uL (4.35-5.55); RED CELL DISTRIBUTION WIDTH 19.7 % (11.5-14.0); SEGMENTED NEUTROPHILS % (AUTO) 61.1 % (42-78); TOTAL CELLS COUNTED % (AUTO) 100 %; WHITE BLOOD COUNT 3.1 10^3/uL (4.0-10.5)
[2018-06-03 22:17] LABS: PLATELET COUNT 84 10^3/uL (150-450)
[2018-06-04] MEDS: DEXTROSE 5%-WATER 1000 ML 1,000 ML IV PRN ×2 (06:20→17:54)
[2018-06-04 10:53] LABS: HEMATOCRIT 25.5 % (37.9-51.0); HEMOGLOBIN 8.7 g/dL (13.5-17.0); MEAN CORPUSCULAR HEMOGLOBIN 33.9 pg (27.0-33.4); MEAN CORPUSCULAR VOLUME 100 fl (80-97); RED BLOOD COUNT 2.55 10^6/uL (4.35-5.55); RED CELL DISTRIBUTION WIDTH 21.2 % (11.5-14.0); WHITE BLOOD COUNT 5.8 10^3/uL (4.0-10.5)
[2018-06-04 11:10] LABS: ALANINE AMINOTRANSFERASE 72 U/L (21-72); ALBUMIN 2.1 g/dL (3.5-5.0); ALKALINE PHOSPHATASE 59 U/L (38-126); ASPARTATE AMINO TRANSFERASE 152 U/L (17-59); BILIRUBIN,DIRECT 5.4 mg/dL (0.0-0.4); BILIRUBIN,TOTAL 7.8 mg/dL (0.2-1.3); BLOOD UREA NITROGEN 14 mg/dL (7-20); CALCIUM 7.3 mg/dL (8.4-10.2); CHLORIDE 128 mmol/L (98-107); GLUCOSE 117 mg/dL (75-110); POTASSIUM 3.5 mmol/L (3.6-5.0); TOTAL PROTEIN 4.9 g/dL (6.3-8.2)
[2018-06-04 11:15] LABS: CARBON DIOXIDE 17 mmol/L (22-30); SODIUM 147.4 mmol/L (137-145)
[2018-06-04 11:19] LABS: ABSOLUTE LYMPHOCYTES# (MANUAL) 0.5 10^3/uL (0.5-4.7); ABSOLUTE MONOCYTES # (MANUAL) 0.7 10^3/uL (0.1-1.4); ABSOLUTE NEUTROPHILS# (MANUAL) 4.4 10^3/uL (1.7-8.2); BAND NEUTROPHILS % (MANUAL) 2 % (3-5); BASOPHILS % (MANUAL) 1 % (0-2); EOSINOPHILS % (MANUAL) 2 % (0-6); LYMPHOCYTES % (MANUAL) 9 % (13-45); MONOCYTES % (MANUAL) 12 % (3-13); SEGMENTED NEUTROPHILS % (MAN) 74 % (42-78); TOTAL CELLS COUNTED 100
[2018-06-04 11:22] LABS: ANISOCYTOSIS 3+; BURR CELLS 1+; OVALOCYTES 1+; PLATELET COMMENT DECREASED; PLATELET COUNT 85 10^3/uL (150-450); POIKILOCYTOSIS 1+; POLYCHROMASIA SLIGHT; SCHISTOCYTES SLIGHT
[2018-06-04 11:22] LABS: ANION GAP 2 (5-19)
[2018-06-04] MEDS: LORAZEPAM INJ 2 MG/1 ML VIAL IV PRN ×2 (11:29→14:42)
[2018-06-04] MEDS: MAGNESIUM OXIDE 400 MG TABLET PO SCH (11:29)
[2018-06-04] MEDS: CYANOCOBALAMIN (VITAMIN B-12) INJ 1000 MCG/1 ML VIAL IM SCH (11:29)
[2018-06-04] MEDS: THIAMINE HCL 100 MG TABLET PO SCH (11:29)
[2018-06-04] MEDS: PANTOPRAZOLE SODIUM 40 MG VIAL IV SCH ×2 (11:29→17:53)
[2018-06-04] MEDS: CEFTRIAXONE 1 GM/D5W RTU 1 GM/50 ML RTUPB IV SCH (11:31)
[2018-06-04] MEDS: FERROUS SULFATE 325 MG TABLET PO SCH ×2 (11:33→17:54)
[2018-06-04] MEDS: PROPRANOLOL HCL 10 MG TABLET PO SCH (11:34)
[2018-06-04] MEDS: POTASSIUM CHLORIDE 10 MEQ CAPSULE.ER PO SCH (11:34)
--- NOTE | 2018-06-04 13:16 | PDOC CONSULTATION ---
Consultation Consult Date: 06/04/18 Attending physician:: LIEN HALL Consult reason:: ? encephalopathy History of Present Illness Admission Date/PCP: 05/26/18 07:40 History of Present Illness: KELLI ESTEBAN is a 43 year old male patient admitted to the Hospitalist service likely has alcoholic hepatitis was transferred to the ICU, had scope done by Dr Tolbert for melena there was no evidence of varices, although could have resolved prior to the scope I am only asked to comment on the encephalopathy aspect of this patient's care as with any patient with chronic liver disease the differential would include 1) GI bleeding 2) any sort of infection 3) dehydration 4) other co-morbidities he will need lactulose currently looks as though he has alcoholic hepatitis as well Past Medical History Renal/ Medical History: Reports: Other - Renal disease, unspecified GI Medical History: Reports: Other - Liver disease, unspecified Social History Lives with: Alone Smoking Status: Never Smoker Frequency of Alcohol Use: Heavy Hx Recreational Drug Use: No Drugs: None Hx Prescription Drug Abuse: No - Advance Directive Resuscitation Status: Full Code Family History Family History: Reviewed & Not Pertinent Parental Family History Reviewed: Yes Children Family History Reviewed: Unknown Sibling(s) Family History Reviewed.: Unknown Medication/Allergy Home Medications: No Home Medications 05/26/18 Allergies/Adverse Reactions: No Known Allergies Allergy (Verified 05/26/18 10:07) Review of Systems Constitutional: ABSENT: fever(s), headache(s) Eyes: ABSENT: visual disturbances Ears: ABSENT: hearing changes Nose, Mouth, and Throat: ABSENT: sore throat Cardiovascular: ABSENT: orthropnea Respiratory: ABSENT: hemoptysis Gastrointestinal: ABSENT: dysphagia Genitourinary: ABSENT: dysuria, hematuria Musculoskeletal: ABSENT: joint swelling Integumentary: ABSENT: pruritus Neurological: ABSENT: syncope, tingling, tremor(s), vertigo Endocrine: ABSENT: polydipsia, polyphagia, polyuria Hematologic/Lymphatic: ABSENT: easy bruising Physical Exam Vital Signs: Temp Pulse Resp BP Pulse Ox 98.3 F 109 H 21 H 120/63 96 06/04/18 08:00 06/04/18 08:00 06/04/18 10:41 06/04/18 10:41 06/04/18 10:41 Intake & Output 06/03/18 06/04/18 06/05/18 06:59 06:59 06:59 Intake Total 418 895 50 Output Total 2024 1167 60 Balance 1456 -770 -10 Weight 72.9 kg 73.5 kg Head exam: PRESENT: atraumatic, normocephalic Eye exam: PRESENT: EOMI, PERRLA, scleral icterus. ABSENT: periorbital swelling Mouth exam: PRESENT: moist, neck supple Throat exam: ABSENT: tonsillar exudate, tonsillogmegaly Neck exam: ABSENT: meningismus, tenderness, thyromegaly Respiratory exam: PRESENT: symmetrical, unlabored. ABSENT: wheezes Cardiovascular exam: PRESENT: RRR, +S1, +S2 GI/Abdominal exam: PRESENT: soft. ABSENT: rebound, rigid, tenderness Extremities exam: ABSENT: joint swelling Musculoskeletal exam: PRESENT: full ROM Neurological exam: PRESENT: altered Focused psych exam: ABSENT: restlessness Skin exam: PRESENT: normal color. ABSENT: mottled, pallor, urticaria, vesicles Results Laboratory Results: 06/04/18 07:35 06/04/18 10:42 06/03/18 06/04/18 06/04/18 21:50 07:35 10:42 WBC 3.1 L 5.8 RBC 2.52 L 2.55 L Hgb 8.5 L 8.7 L Hct 25.0 L 25.5 L MCV 99 H 100 H MCH 33.9 H 33.9 H MCHC 34.2 34.0 RDW 19.7 H 21.2 H Plt Count 84 L 85 L Seg Neutrophils % 61.1 Not Reportable Lymphocytes % 22.4 Not Reportable Monocytes % 13.3 H Not Reportable Eosinophils % 2.1 Not Reportable Basophils % 1.1 Not Reportable Absolute Neutrophils 1.9 Not Reportable Absolute Lymphocytes 0.7 Not Reportable Absolute Monocytes 0.4 Not Reportable Absolute Eosinophils 0.1 Not Reportable Absolute Basophils 0.0 Not Reportable Sodium 147.4 H Potassium 3.5 L Chloride 128 H Carbon Dioxide 17 L Anion Gap 2 L BUN 14 Creatinine 0.66 Est GFR ( Amer) > 60 Est GFR (Non-Af Amer) > 60 Glucose 117 H Calcium 7.3 L Total Bilirubin 7.8 H AST 152 H ALT 72 Alkaline Phosphatase 59 Total Protein 4.9 L Albumin 2.1 L 05/30/18 09:11 Blood Blood Culture - Final NO GROWTH IN 5 DAYS 05/30/18 08:58 Blood Blood Culture - Final NO GROWTH IN 5 DAYS 05/26/18 04:48 Troponin I < 0.012 Impressions: Abdomen Ultrasound 05/26/18 00:00 IMPRESSION: Slightly nodular liver with fatty infiltration. Splenomegaly. No gallstones. Head CT 05/26/18 04:49 IMPRESSION: No acute intracranial findings. Chest X-Ray 06/01/18 00:00 IMPRESSION: NO ACUTE FINDINGS. Assessment & Plan - Diagnosis (1) Encephalopathy Plan: patient does have a history of significant alcohol use likely has alcoholic hepatitis continue conservative therapy scope done by Dr Tolbert and no variceal bleeding other sources of infection should be sought after and appropriately treated avoid dehydration administration of lactulose is advised until stools are soft, but avoid diarrhea alternatively, use of Rifaxin can be considered as well wait on the biopsies that were done by surgery. Dr Tolbert - Time Time Spent: 50 to 70 Minutes
[2018-06-04] MEDS: LACTULOSE SYRUP 20 GM/30 ML UDCUP PO SCH ×2 (14:25→21:25)
[2018-06-04] MEDS: FOLIC ACID/VITAMIN B COMP W-C CAPSULE PO SCH (17:53)
--- NOTE | 2018-06-04 20:18 | PDOC PROGRESS REPORT ---
Subjective Progress Note for:: 06/04/18 Subjective:: KELLI ESTEBAN is a 43 year old male with a past medical history of alcohol abuse who was admitted for hepatic encephalopathy. He did develop hematemesis requiring 4 u of pRBC transfusion and underwent EGD yesterday 06/03/18 which showed acute and chronic gastritis, no varices but did reveal some white patchy lesions on the esophagus. No acute event overnight. Per RN, patient is more responsive and more oriented and alert today. Upon encounter he is oriented to person and place. No recurrence of bleeding. No hematemesis or melena. Reason For Visit: DTS,HEPATIC ENCEPHALOPATHY Physical Exam Vital Signs: Temp Pulse Resp BP Pulse Ox 97.9 F 97 20 99/56 L 92 06/04/18 14:00 06/04/18 16:00 06/04/18 16:00 06/04/18 16:00 06/04/18 16:00 Intake & Output 06/03/18 06/04/18 06/05/18 06:59 06:59 06:59 Intake Total 4183 895 950 Output Total 5 1665 680 Balance 2158 -770 270 Weight 160 lb 11.472 oz 162 lb 0.636 oz General appearance: PRESENT: no acute distress, well-developed, well-nourished Head exam: PRESENT: atraumatic, normocephalic Eye exam: PRESENT: scleral icterus Neck exam: ABSENT: carotid bruit, JVD, lymphadenopathy, thyromegaly Respiratory exam: PRESENT: clear to auscultation titi. ABSENT: rales, rhonchi, wheezes Cardiovascular exam: PRESENT: RRR. ABSENT: diastolic murmur, rubs, systolic murmur Pulses: PRESENT: normal dorsalis pedis pul GI/Abdominal exam: PRESENT: normal bowel sounds, soft. ABSENT: distended, guarding, mass, organolmegaly, rebound, tenderness Rectal exam: PRESENT: deferred Neurological exam: PRESENT: alert, awake, oriented to person, oriented to place, CN II-XII grossly intact. ABSENT: oriented to time, oriented to situation, motor sensory deficit Results Laboratory Results: 06/04/18 07:35 06/04/18 10:42 06/03/18 06/04/18 06/04/18 21:50 07:35 10:42 WBC 3.1 L 5.8 RBC 2.52 L 2.55 L Hgb 8.5 L 8.7 L Hct 25.0 L 25.5 L MCV 99 H 100 H MCH 33.9 H 33.9 H MCHC 34.2 34.0 RDW 19.7 H 21.2 H Plt Count 84 L 85 L Seg Neutrophils % 61.1 Not Reportable Lymphocytes % 22.4 Not Reportable Monocytes % 13.3 H Not Reportable Eosinophils % 2.1 Not Reportable Basophils % 1.1 Not Reportable Absolute Neutrophils 1.9 Not Reportable Absolute Lymphocytes 0.7 Not Reportable Absolute Monocytes 0.4 Not Reportable Absolute Eosinophils 0.1 Not Reportable Absolute Basophils 0.0 Not Reportable Sodium 147.4 H Potassium 3.5 L Chloride 128 H Carbon Dioxide 17 L Anion Gap 2 L BUN 14 Creatinine 0.66 Est GFR ( Amer) > 60 Est GFR (Non-Af Amer) > 60 Glucose 117 H Calcium 7.3 L Total Bilirubin 7.8 H AST 152 H ALT 72 Alkaline Phosphatase 59 Total Protein 4.9 L Albumin 2.1 L 05/30/18 09:11 Blood Blood Culture - Final NO GROWTH IN 5 DAYS 05/30/18 08:58 Blood Blood Culture - Final NO GROWTH IN 5 DAYS 05/26/18 04:48 Troponin I < 0.012 Impressions: Abdomen Ultrasound 05/26/18 00:00 IMPRESSION: Slightly nodular liver with fatty infiltration. Splenomegaly. No gallstones. Head CT 05/26/18 04:49 IMPRESSION: No acute intracranial findings. Chest X-Ray 06/01/18 00:00 IMPRESSION: NO ACUTE FINDINGS. Assessment & Plan - Diagnosis (1) GI bleed Is this a current diagnosis for this admission?: Yes Plan: S/P EGD yesterday 06/03/18 which showed acute and chronic gastritis, no varices but did reveal some white patchy lesions on the esophagus. Octreotide DCed. Continue PPI. (2) Hepatic encephalopathy Is this a current diagnosis for this admission?: Yes Plan: Improving. Bilirubin continues to improve. Continue lactulose. - Time Time Spent with patient: 25-34 minutes
[2018-06-04] MEDS ORDERED: POTASSIUM CHLORIDE 10 MEQ CAPSULE.ER PO ONE (22:00)
[2018-06-05 04:20] LABS: ABSOLUTE EOSINOPHILS # (AUTO) 0.1 10^3/uL (0.0-0.6); ABSOLUTE LYMPHOCYTES (AUTO) 1.2 10^3/uL (0.5-4.7); ABSOLUTE NEUT (AUTO) 5.7 10^3/uL (1.7-8.2); BASOPHILS % (AUTO) 0.6 % (0-2); EOSINOPHILS % (AUTO) 1.5 % (0-6); HEMATOCRIT 25.7 % (37.9-51.0); LYMPHOCYTES % (AUTO) 15.3 % (13-45); MEAN CORPUSCULAR HEMOGLOBIN 34.6 pg (27.0-33.4); MEAN CORPUSCULAR HGB CONC 34.9 g/dL (32.0-36.0); MEAN CORPUSCULAR VOLUME 99 fl (80-97); MONOCYTES % (AUTO) 12.6 % (3-13); PLATELET COUNT 100 10^3/uL (150-450); RED BLOOD COUNT 2.59 10^6/uL (4.35-5.55); RED CELL DISTRIBUTION WIDTH 25.2 % (11.5-14.0); TOTAL CELLS COUNTED % (AUTO) 100 %; WHITE BLOOD COUNT 8.2 10^3/uL (4.0-10.5)
[2018-06-05 04:36] LABS: ANISOCYTOSIS 3+; BURR CELLS 1+; PLATELET COMMENT DECREASED; POIKILOCYTOSIS 1+; SCHISTOCYTES SLIGHT
[2018-06-05 04:37] LABS: ALANINE AMINOTRANSFERASE 73 U/L (21-72); ALKALINE PHOSPHATASE 68 U/L (38-126); ANION GAP 6 (5-19); ASPARTATE AMINO TRANSFERASE 115 U/L (17-59); BILIRUBIN,DIRECT 5.3 mg/dL (0.0-0.4); BILIRUBIN,TOTAL 7.4 mg/dL (0.2-1.3); BLOOD UREA NITROGEN 10 mg/dL (7-20); CALCIUM 7.4 mg/dL (8.4-10.2); CARBON DIOXIDE 16 mmol/L (22-30); CHLORIDE 120 mmol/L (98-107); GLUCOSE 128 mg/dL (75-110); POTASSIUM 3.4 mmol/L (3.6-5.0); SODIUM 141.8 mmol/L (137-145); TOTAL PROTEIN 4.9 g/dL (6.3-8.2)
[2018-06-05] MEDS: DEXTROSE 5%-WATER 1000 ML 1,000 ML IV PRN (04:50)
[2018-06-05] MEDS ORDERED: POTASSIUM CHLORIDE 10 MEQ CAPSULE.ER PO ONE (09:00)
[2018-06-05] MEDS: PANTOPRAZOLE SODIUM 40 MG VIAL IV SCH ×2 (12:26→17:11)
[2018-06-05] MEDS: CYANOCOBALAMIN (VITAMIN B-12) INJ 1000 MCG/1 ML VIAL IM SCH (12:27)
[2018-06-05] MEDS: METHYLPREDNISOLONE INJ 40 MG/1 ML SDV IV SCH (12:27)
[2018-06-05] MEDS: PROPRANOLOL HCL 10 MG TABLET PO SCH (12:28)
[2018-06-05] MEDS: LACTULOSE SYRUP 20 GM/30 ML UDCUP PO SCH ×2 (12:28→22:49)
[2018-06-05] MEDS: POTASSIUM CHLORIDE 10 MEQ CAPSULE.ER PO SCH (12:28)
[2018-06-05] MEDS: THIAMINE HCL 100 MG TABLET PO SCH (12:29)
[2018-06-05] MEDS: MAGNESIUM OXIDE 400 MG TABLET PO SCH (12:29)
[2018-06-05] MEDS: FERROUS SULFATE 325 MG TABLET PO SCH ×2 (12:29→17:11)
[2018-06-05] MEDS: CEFTRIAXONE 1 GM/D5W RTU 1 GM/50 ML RTUPB IV SCH (12:30)
--- NOTE | 2018-06-05 15:29 | PDOC PROGRESS REPORT ---
Subjective Progress Note for:: 06/05/18 Subjective:: KELLI ESTEBAN is a 43 year old male with a past medical history of alcohol abuse who was admitted for alcohol withdrawal and hepatic encephalopathy. He did develop hematemesis requiring 4 u of pRBC transfusion and underwent EGD yesterday 06/03/18 which showed acute and chronic gastritis, no varices but did reveal some white patchy lesions on the esophagus. No acute event overnight. Patient continues to improve. Upon encounter he is now oriented to person, time and place. No recurrence of bleeding. No hematemesis or melena. Will be downgraded from ICU. Reason For Visit: DTS,HEPATIC ENCEPHALOPATHY Physical Exam Vital Signs: Temp Pulse Resp BP Pulse Ox 98.6 F 97 23 H 112/66 98 06/05/18 08:00 06/05/18 14:00 06/05/18 14:00 06/05/18 14:00 06/05/18 14:00 Intake & Output 06/04/18 06/05/18 06/06/18 06:59 06:59 06:59 Intake Total 895 2950 Output Total 1665 1510 350 Balance -770 1440 -350 Weight 162 lb 0.636 oz 171 lb 15.369 oz General appearance: PRESENT: no acute distress, well-developed, well-nourished Head exam: PRESENT: atraumatic, normocephalic Eye exam: PRESENT: scleral icterus. ABSENT: conjunctival injection Ear exam: PRESENT: normal external ear exam Neck exam: ABSENT: carotid bruit, JVD, lymphadenopathy, thyromegaly Respiratory exam: PRESENT: clear to auscultation titi. ABSENT: rales, rhonchi, wheezes Cardiovascular exam: PRESENT: RRR. ABSENT: diastolic murmur, rubs, systolic murmur Pulses: PRESENT: normal dorsalis pedis pul GI/Abdominal exam: PRESENT: normal bowel sounds, soft. ABSENT: distended, guarding, mass, organolmegaly, rebound, tenderness Rectal exam: PRESENT: deferred Neurological exam: PRESENT: alert, awake, oriented to person, oriented to place, oriented to time, oriented to situation, CN II-XII grossly intact. ABSENT: motor sensory deficit Results Laboratory Results: 06/05/18 04:03 06/05/18 04:03 06/05/18 06/05/18 04:03 04:03 WBC 8.2 RBC 2.59 L Hgb 9.0 L Hct 25.7 L MCV 99 H MCH 34.6 H MCHC 34.9 RDW 25.2 H Plt Count 100 L Seg Neutrophils % 70.0 Lymphocytes % 15.3 Monocytes % 12.6 Eosinophils % 1.5 Basophils % 0.6 Absolute Neutrophils 5.7 Absolute Lymphocytes 1.2 Absolute Monocytes 1.0 Absolute Eosinophils 0.1 Absolute Basophils 0.0 Sodium 141.8 Potassium 3.4 L Chloride 120 H Carbon Dioxide 16 L Anion Gap 6 BUN 10 Creatinine 0.65 Est GFR ( Amer) > 60 Est GFR (Non-Af Amer) > 60 Glucose 128 H Calcium 7.4 L Total Bilirubin 7.4 H AST 115 H ALT 73 H Alkaline Phosphatase 68 Total Protein 4.9 L Albumin 2.0 L 05/26/18 04:48 Troponin I < 0.012 Impressions: Abdomen Ultrasound 05/26/18 00:00 IMPRESSION: Slightly nodular liver with fatty infiltration. Splenomegaly. No gallstones. Head CT 05/26/18 04:49 IMPRESSION: No acute intracranial findings. Chest X-Ray 06/01/18 00:00 IMPRESSION: NO ACUTE FINDINGS. Assessment & Plan - Diagnosis (1) GI bleed Is this a current diagnosis for this admission?: Yes Plan: S/P EGD on 06/03/18 which showed acute and chronic gastritis, no varices but did reveal some white patchy lesions on the esophagus. Octreotide DCed on 06/04. Hemoglobin stable. Continue PPI. (2) Hepatic encephalopathy Is this a current diagnosis for this admission?: Yes Plan: Resolving. Bilirubin continues to improve. Continue lactulose. Corrected Maddrey's discriminant score is 57. Started Solumedrol 40 mg daily. (3) Alcohol withdrawal delirium Is this a current diagnosis for this admission?: Yes Plan: Resolved. (4) Thrombocytopenia Is this a current diagnosis for this admission?: Yes Plan: Secondary to chronic alcoholism. Platelet count stable. (5) Hypokalemia Is this a current diagnosis for this admission?: Yes Plan: Continue 60 mews PO daily. Will add additional 60 meqs PO once for low Potassium this morning. - Time Time Spent with patient: 25-34 minutes
[2018-06-05] MEDS: FOLIC ACID/VITAMIN B COMP W-C CAPSULE PO SCH (16:36)
[2018-06-05] MEDS: NORMAL SALINE 1000 ML 1,000 ML IV PRN (18:04)
[2018-06-06] MEDS: NORMAL SALINE 1000 ML 1,000 ML IV PRN (06:03)
[2018-06-06 07:17] LABS: ABSOLUTE NEUT (AUTO) 11.8 10^3/uL (1.7-8.2); EOSINOPHILS % (AUTO) 0.1 % (0-6); HEMATOCRIT 28.8 % (37.9-51.0); HEMOGLOBIN 9.9 g/dL (13.5-17.0); LYMPHOCYTES % (AUTO) 7.1 % (13-45); MEAN CORPUSCULAR HEMOGLOBIN 33.7 pg (27.0-33.4); MEAN CORPUSCULAR HGB CONC 34.2 g/dL (32.0-36.0); MEAN CORPUSCULAR VOLUME 99 fl (80-97); MONOCYTES % (AUTO) 7.2 % (3-13); PLATELET COUNT 129 10^3/uL (150-450); RED BLOOD COUNT 2.92 10^6/uL (4.35-5.55); RED CELL DISTRIBUTION WIDTH 23.2 % (11.5-14.0); SEGMENTED NEUTROPHILS % (AUTO) 85.6 % (42-78); TOTAL CELLS COUNTED % (AUTO) 100 %; WHITE BLOOD COUNT 13.7 10^3/uL (4.0-10.5)
[2018-06-06 07:23] LABS: ALANINE AMINOTRANSFERASE 84 U/L (21-72); ALBUMIN 2.3 g/dL (3.5-5.0); ALKALINE PHOSPHATASE 108 U/L (38-126); ANION GAP 10 (5-19); ASPARTATE AMINO TRANSFERASE 101 U/L (17-59); BILIRUBIN,DIRECT 5.1 mg/dL (0.0-0.4); BILIRUBIN,TOTAL 6.8 mg/dL (0.2-1.3); BLOOD UREA NITROGEN 13 mg/dL (7-20); CALCIUM 7.8 mg/dL (8.4-10.2); CARBON DIOXIDE 15 mmol/L (22-30); CHLORIDE 114 mmol/L (98-107); GLUCOSE 106 mg/dL (75-110); SODIUM 138.8 mmol/L (137-145); TOTAL PROTEIN 5.4 g/dL (6.3-8.2)
[2018-06-06] MEDS: CHLORPROMAZINE HCL INJ 25 MG/1 ML AMPULE IV PRN (09:14)
[2018-06-06] MEDS: FERROUS SULFATE 325 MG TABLET PO SCH ×2 (09:15→17:28)
[2018-06-06] MEDS: MAGNESIUM OXIDE 400 MG TABLET PO SCH (10:55)
[2018-06-06] MEDS: THIAMINE HCL 100 MG TABLET PO SCH (10:55)
[2018-06-06] MEDS: LACTULOSE SYRUP 20 GM/30 ML UDCUP PO SCH ×2 (10:55→21:22)
[2018-06-06] MEDS: PROPRANOLOL HCL 10 MG TABLET PO SCH (10:56)
[2018-06-06] MEDS: POTASSIUM CHLORIDE 10 MEQ CAPSULE.ER PO SCH (10:56)
[2018-06-06] MEDS: METHYLPREDNISOLONE INJ 40 MG/1 ML SDV IV SCH (10:57)
[2018-06-06] MEDS: PANTOPRAZOLE SODIUM 40 MG VIAL IV SCH ×2 (10:57→17:28)
[2018-06-06] MEDS: CEFTRIAXONE 1 GM/D5W RTU 1 GM/50 ML RTUPB IV SCH (10:57)
[2018-06-06] MEDS: CYANOCOBALAMIN (VITAMIN B-12) INJ 1000 MCG/1 ML VIAL IM SCH (10:58)
[2018-06-06] MEDS ORDERED: LORAZEPAM INJ 2 MG/1 ML VIAL IV ONE (14:00)
[2018-06-06] MEDS: FOLIC ACID/VITAMIN B COMP W-C CAPSULE PO SCH (17:28)
--- NOTE | 2018-06-06 17:41 | PDOC PROGRESS REPORT ---
Subjective Progress Note for:: 06/06/18 Subjective:: KELLI ESTEBAN is a 43 year old male with a past medical history of alcohol abuse who was admitted for alcohol withdrawal and hepatic encephalopathy. He did develop hematemesis requiring 4 u of pRBC transfusion and underwent EGD yesterday 06/03/18 which showed acute and chronic gastritis, no varices but did reveal some white patchy lesions on the esophagus. 06/05: Patient continues to improve. Upon encounter he is now oriented to person, time and place. No recurrence of bleeding. No hematemesis or melena. Will be downgraded from ICU. 06/06: No acute event overnight. He continues to improve. He is AO x 3 this morning but does have episodes of confusion. He says he thought there was some person smoking outside his window. Patient also was assisted to the bathroom this morning where was noted to be weak. He slouched on the bathroom floor but reportedly did not fall or sustain trauma. Reason For Visit: INCREASED AMMONIA LEVEL,HYOKALEMIA Physical Exam Vital Signs: Temp Pulse Resp BP Pulse Ox 98.6 F 88 20 107/62 94 06/06/18 08:19 06/06/18 14:00 06/06/18 08:19 06/06/18 08:19 06/06/18 08:19 Intake & Output 06/05/18 06/06/18 06/07/18 06:59 06:59 06:59 Intake Total 2950 1649 50 Output Total 1510 550 Balance 1440 1099 50 Weight 171 lb 15.369 oz 165 lb 9.074 oz General appearance: PRESENT: no acute distress, well-developed, well-nourished Head exam: PRESENT: atraumatic, normocephalic Eye exam: PRESENT: scleral icterus. ABSENT: conjunctival injection Neck exam: ABSENT: carotid bruit, JVD, lymphadenopathy, thyromegaly Respiratory exam: PRESENT: clear to auscultation titi. ABSENT: rales, rhonchi, wheezes Cardiovascular exam: PRESENT: RRR. ABSENT: diastolic murmur, rubs, systolic murmur Pulses: PRESENT: normal dorsalis pedis pul GI/Abdominal exam: PRESENT: normal bowel sounds, soft. ABSENT: distended, guarding, mass, organolmegaly, rebound, tenderness Rectal exam: PRESENT: deferred Neurological exam: PRESENT: alert, awake, oriented to person, oriented to place, oriented to time, CN II-XII grossly intact. ABSENT: motor sensory deficit Results Laboratory Results: 06/06/18 06:09 06/06/18 06:09 06/06/18 06/06/18 06:09 06:09 WBC 13.7 H RBC 2.92 L Hgb 9.9 L Hct 28.8 L MCV 99 H MCH 33.7 H MCHC 34.2 RDW 23.2 H Plt Count 129 L Seg Neutrophils % 85.6 H Lymphocytes % 7.1 L Monocytes % 7.2 Eosinophils % 0.1 Basophils % 0.0 Absolute Neutrophils 11.8 H Absolute Lymphocytes 1.0 Absolute Monocytes 1.0 Absolute Eosinophils 0.0 Absolute Basophils 0.0 Sodium 138.8 Potassium 4.0 Chloride 114 H Carbon Dioxide 15 L Anion Gap 10 BUN 13 Creatinine 0.65 Est GFR ( Amer) > 60 Est GFR (Non-Af Amer) > 60 Glucose 106 Calcium 7.8 L Magnesium 1.7 Total Bilirubin 6.8 H AST 101 H ALT 84 H Alkaline Phosphatase 108 Total Protein 5.4 L Albumin 2.3 L 05/26/18 04:48 Troponin I < 0.012 Impressions: Abdomen Ultrasound 05/26/18 00:00 IMPRESSION: Slightly nodular liver with fatty infiltration. Splenomegaly. No gallstones. Head CT 05/26/18 04:49 IMPRESSION: No acute intracranial findings. Chest X-Ray 06/01/18 00:00 IMPRESSION: NO ACUTE FINDINGS. Assessment & Plan - Diagnosis (1) GI bleed Is this a current diagnosis for this admission?: Yes Plan: S/P EGD on 06/03/18 which showed acute and chronic gastritis, no varices but did reveal some white patchy lesions on the esophagus. Octreotide DCed on 06/04. Hemoglobin stable. Continue PPI. (2) Hepatic encephalopathy Is this a current diagnosis for this admission?: Yes Plan: Resolving. Bilirubin continues to improve. Continue lactulose. 04/03: Corrected Maddrey's discriminant score is 57. Started Solumedrol 40 mg daily. Continue IV steroids. (3) Acute liver failure Is this a current diagnosis for this admission?: Yes Plan: Improving. Bilirubin continue to trend down. (4) Alcohol withdrawal delirium Is this a current diagnosis for this admission?: Yes Plan: Resolved. (5) Thrombocytopenia Is this a current diagnosis for this admission?: Yes Plan: Secondary to chronic alcoholism. Platelet count stable and is starting to recover. (6) Hypokalemia Is this a current diagnosis for this admission?: Yes Plan: Continue 60 meqs PO daily. 06/05: Will add additional 60 meqs PO once for low Potassium this morning. (7) Alcoholic hepatitis Is this a current diagnosis for this admission?: Yes Plan: Continue steroids. - Time Time Spent with patient: 25-34 minutes
[2018-06-07] MEDS: CHLORPROMAZINE HCL INJ 25 MG/1 ML AMPULE IV PRN ×4 (03:57→21:52)
[2018-06-07] MEDS: NORMAL SALINE 1000 ML 1,000 ML IV PRN ×2 (03:59→21:46)
[2018-06-07] MEDS: LACTULOSE SYRUP 20 GM/30 ML UDCUP PO SCH ×2 (10:51→21:46)
[2018-06-07] MEDS: FERROUS SULFATE 325 MG TABLET PO SCH ×2 (10:52→17:46)
[2018-06-07] MEDS: POTASSIUM CHLORIDE 10 MEQ CAPSULE.ER PO SCH (10:52)
[2018-06-07] MEDS: PROPRANOLOL HCL 10 MG TABLET PO SCH (10:52)
[2018-06-07] MEDS: THIAMINE HCL 100 MG TABLET PO SCH (10:53)
[2018-06-07] MEDS: PANTOPRAZOLE SODIUM 40 MG VIAL IV SCH (10:53)
[2018-06-07] MEDS: MAGNESIUM OXIDE 400 MG TABLET PO SCH (10:53)
[2018-06-07] MEDS: CYANOCOBALAMIN (VITAMIN B-12) INJ 1000 MCG/1 ML VIAL IM SCH (10:53)
[2018-06-07] MEDS: METHYLPREDNISOLONE INJ 40 MG/1 ML SDV IV SCH (10:53)
--- NOTE | 2018-06-07 13:50 | PDOC PROGRESS REPORT ---
Subjective Progress Note for:: 06/07/18 Subjective:: KELLI ESTEBAN is a 43 year old male with a past medical history of alcohol abuse who was admitted for alcohol withdrawal and hepatic encephalopathy. He did develop hematemesis requiring 4 u of pRBC transfusion and underwent EGD yesterday 06/03/18 which showed acute and chronic gastritis, no varices but did reveal some white patchy lesions on the esophagus. 06/05: Patient continues to improve. Upon encounter he is now oriented to person, time and place. No recurrence of bleeding. No hematemesis or melena. Will be downgraded from ICU. 06/06: He continues to improve. He is AO x 3 this morning but does have episodes of confusion. He says he thought there was some person smoking outside his window. Patient also was assisted to the bathroom this morning where was noted to be weak. He slouched on the bathroom floor but reportedly did not fall or sustain trauma. 06/07: Patient had an episode of nonbloody, nonbilious vomiting overnight. Upon encounter, he remain well oriented x 4. I was called by RN later at noon that patient had bright red blood on stools. Will continue to recheck H&H and will have surgery notified. Reason For Visit: INCREASED AMMONIA LEVEL,HYOKALEMIA Physical Exam Vital Signs: Temp Pulse Resp BP Pulse Ox 98.2 F 88 16 119/57 L 95 06/07/18 11:48 06/07/18 11:48 06/07/18 11:48 06/07/18 11:48 06/07/18 11:48 Intake & Output 06/06/18 06/07/18 06/08/18 06:59 06:59 06:59 Intake Total 1649 1250 Output Total 550 600 Balance 1099 650 Weight 165 lb 9.074 oz 181 lb 3.52 oz General appearance: PRESENT: no acute distress, well-developed, well-nourished Head exam: PRESENT: atraumatic, normocephalic Eye exam: PRESENT: PERRLA, scleral icterus Ear exam: PRESENT: normal external ear exam Mouth exam: PRESENT: moist, tongue midline Neck exam: ABSENT: carotid bruit, JVD, lymphadenopathy, thyromegaly Respiratory exam: PRESENT: clear to auscultation titi. ABSENT: rales, rhonchi, wheezes Cardiovascular exam: PRESENT: RRR. ABSENT: diastolic murmur, rubs, systolic murmur Pulses: PRESENT: normal dorsalis pedis pul GI/Abdominal exam: PRESENT: normal bowel sounds, soft. ABSENT: distended, guarding, mass, organolmegaly, rebound, tenderness Rectal exam: PRESENT: deferred Neurological exam: PRESENT: alert, awake, oriented to person, oriented to place, oriented to time, oriented to situation, CN II-XII grossly intact. ABSENT: motor sensory deficit Results Laboratory Results: 06/06/18 06:09 06/06/18 06:09 05/26/18 04:48 Troponin I < 0.012 Impressions: Abdomen Ultrasound 05/26/18 00:00 IMPRESSION: Slightly nodular liver with fatty infiltration. Splenomegaly. No gallstones. Head CT 05/26/18 04:49 IMPRESSION: No acute intracranial findings. Chest X-Ray 06/01/18 00:00 IMPRESSION: NO ACUTE FINDINGS. Assessment & Plan - Diagnosis (1) GI bleed Is this a current diagnosis for this admission?: Yes Plan: S/P EGD on 06/03/18 which showed acute and chronic gastritis, no varices but did reveal some white patchy lesions on the esophagus. Octreotide DCed on 06/04. 06/06: Hemoglobin stable. Continue PPI. 06/07: Patient had an episode of nonbloody, nonbilious vomiting overnight. Upon encounter, he remain well oriented x 4. I was called by RN later at noon that patient had bright red blood on stools. Will continue to recheck H&H and will have surgery notified. (2) Hepatic encephalopathy Is this a current diagnosis for this admission?: Yes Plan: Resolving. Bilirubin continues to improve. Continue lactulose. 06/04: Corrected Maddrey's discriminant score is 57. Started Solumedrol 40 mg daily. 06/07: Hold steroids due to bloody stools. Mentation and bilirubin continue to improve. (3) Acute liver failure Is this a current diagnosis for this admission?: Yes Plan: Improving. Bilirubin continue to trend down. (4) Alcohol withdrawal delirium Is this a current diagnosis for this admission?: Yes Plan: Resolved. (5) Thrombocytopenia Is this a current diagnosis for this admission?: Yes Plan: Secondary to chronic alcoholism. Platelet count stable and is starting to recover. (6) Hypokalemia Is this a current diagnosis for this admission?: Yes Plan: Continue 60 meqs PO daily. 06/05: Will add additional 60 meqs PO once for low Potassium this morning. Resolved. (7) Alcoholic hepatitis Is this a current diagnosis for this admission?: Yes Plan: Hold steroids due to bloody stools. - Time Time Spent with patient: 25-34 minutes
[2018-06-07] MEDS: FOLIC ACID/VITAMIN B COMP W-C CAPSULE PO SCH (17:46)
[2018-06-08 08:06] LABS: ABSOLUTE LYMPHOCYTES (AUTO) 0.6 10^3/uL (0.5-4.7); ABSOLUTE MONOCYTES (AUTO) 0.7 10^3/uL (0.1-1.4); BASOPHILS % (AUTO) 0.1 % (0-2); HEMATOCRIT 27.2 % (37.9-51.0); HEMOGLOBIN 9.2 g/dL (13.5-17.0); LYMPHOCYTES % (AUTO) 6.2 % (13-45); MEAN CORPUSCULAR HEMOGLOBIN 33.3 pg (27.0-33.4); MEAN CORPUSCULAR HGB CONC 33.8 g/dL (32.0-36.0); MEAN CORPUSCULAR VOLUME 98 fl (80-97); MONOCYTES % (AUTO) 6.5 % (3-13); PLATELET COUNT 108 10^3/uL (150-450); RED BLOOD COUNT 2.77 10^6/uL (4.35-5.55); RED CELL DISTRIBUTION WIDTH 22.5 % (11.5-14.0); SEGMENTED NEUTROPHILS % (AUTO) 87.2 % (42-78); TOTAL CELLS COUNTED % (AUTO) 100 %; WHITE BLOOD COUNT 10.4 10^3/uL (4.0-10.5)
[2018-06-08 08:21] LABS: ALANINE AMINOTRANSFERASE 118 U/L (21-72); ALKALINE PHOSPHATASE 142 U/L (38-126); ANION GAP 9 (5-19); ASPARTATE AMINO TRANSFERASE 133 U/L (17-59); BILIRUBIN,DIRECT 3.5 mg/dL (0.0-0.4); BILIRUBIN,TOTAL 4.7 mg/dL (0.2-1.3); BLOOD UREA NITROGEN 15 mg/dL (7-20); CALCIUM 7.2 mg/dL (8.4-10.2); CARBON DIOXIDE 13 mmol/L (22-30); CHLORIDE 112 mmol/L (98-107); GLUCOSE 110 mg/dL (75-110); POTASSIUM 4.2 mmol/L (3.6-5.0); SODIUM 133.9 mmol/L (137-145)
[2018-06-08] MEDS: MAGNESIUM OXIDE 400 MG TABLET PO SCH (11:17)
[2018-06-08] MEDS: THIAMINE HCL 100 MG TABLET PO SCH (11:18)
[2018-06-08] MEDS: POTASSIUM CHLORIDE 10 MEQ CAPSULE.ER PO SCH (11:18)
[2018-06-08] MEDS: FERROUS SULFATE 325 MG TABLET PO SCH ×2 (11:18→17:14)
[2018-06-08] MEDS: LACTULOSE SYRUP 20 GM/30 ML UDCUP PO SCH ×2 (11:18→21:24)
[2018-06-08] MEDS: PROPRANOLOL HCL 10 MG TABLET PO SCH (11:22)
[2018-06-08] MEDS: CYANOCOBALAMIN (VITAMIN B-12) INJ 1000 MCG/1 ML VIAL IM SCH (11:30)
[2018-06-08] MEDS: LIDOCAINE 5% (700 MG) TRANSDERMAL ADH..PATCH TP SCH (12:20)
--- NOTE | 2018-06-08 15:08 | RADIOLOGY REPORT (SQ) ---
EXAM DESCRIPTION: L SPINE WHOLE COMPLETED DATE/TIME: 06/08/2018 2:23 pm REASON FOR STUDY: lumbar x-ray for back pain, ??fall COMPARISON: None. NUMBER OF VIEWS: Five views including obliques. TECHNIQUE: AP, lateral, oblique, and sacral radiographic images acquired of the lumbar spine. LIMITATIONS: None. FINDINGS: MINERALIZATION: Normal. SEGMENTATION: Normal. No transitional anatomy. ALIGNMENT: Normal. VERTEBRAE: Maintained height. No fracture or worrisome bone lesion. DISCS: Preserved height. No significant osteophytes or end plate irregularity. POSTERIOR ELEMENTS: Pedicles and facets are intact. No pars defect or posterior arch defects. HARDWARE: None in the spine. PARASPINAL SOFT TISSUES: Normal. PELVIS: Not included in the field of view. SI joints intact OTHER: No other significant finding. IMPRESSION: NORMAL 5 VIEW LUMBAR SPINE. TECHNICAL DOCUMENTATION: JOB ID: [id number] [employer]- All Rights Reserved Reading location - IP/workstation name: [email or web address]
--- NOTE | 2018-06-08 15:59 | PDOC PROGRESS REPORT ---
Subjective Progress Note for:: 06/08/18 Subjective:: KELLI ESTEBAN is a 43 year old male with a past medical history of alcohol abuse who was admitted for alcohol withdrawal and hepatic encephalopathy. He did develop hematemesis requiring 4 u of pRBC transfusion and underwent EGD yesterday 06/03/18 which showed acute and chronic gastritis, no varices but did reveal some white patchy lesions on the esophagus. 06/05: Patient continues to improve. Upon encounter he is now oriented to person, time and place. No recurrence of bleeding. No hematemesis or melena. Will be downgraded from ICU. 06/06: He continues to improve. He is AO x 3 this morning but does have episodes of confusion. He says he thought there was some person smoking outside his window. Patient also was assisted to the bathroom this morning where was noted to be weak. He slouched on the bathroom floor but reportedly did not fall or sustain trauma. 06/07: Patient had an episode of nonbloody, nonbilious vomiting overnight. Upon encounter, he remain well oriented x 4. I was called by RN later at noon that patient had bright red blood on stools. Will continue to recheck H&H and will have surgery notified. Steroids were held. 06/08: No acute event overnight. No recurrence of vomiting or bloody stools. Hemoglobin is stable. He remains well oriented (AO x4). He says this morning he has decided to go back home to his parents in [place] instead as he does not have any family or relative here. Reason For Visit: INCREASED AMMONIA LEVEL,HYOKALEMIA Physical Exam Vital Signs: Temp Pulse Resp BP Pulse Ox 97.4 F 80 18 110/67 96 06/08/18 11:07 06/08/18 14:00 06/08/18 11:07 06/08/18 11:07 06/08/18 11:07 Intake & Output 06/07/18 06/08/18 06/09/18 06:59 06:59 06:59 Intake Total 1250 2304 Output Total 600 1375 Balance 650 929 Weight 181 lb 3.52 oz 186 lb 1.122 oz General appearance: PRESENT: no acute distress, well-developed, well-nourished Head exam: PRESENT: atraumatic, normocephalic Eye exam: PRESENT: EOMI, PERRLA, scleral icterus Ear exam: PRESENT: normal external ear exam Mouth exam: PRESENT: moist, tongue midline Neck exam: ABSENT: carotid bruit, JVD, lymphadenopathy, thyromegaly Respiratory exam: PRESENT: clear to auscultation titi. ABSENT: rales, rhonchi, wheezes Cardiovascular exam: PRESENT: RRR. ABSENT: diastolic murmur, rubs, systolic murmur GI/Abdominal exam: PRESENT: distended, normal bowel sounds, soft. ABSENT: guarding, mass, organolmegaly, rebound, tenderness Rectal exam: PRESENT: deferred Neurological exam: PRESENT: alert, awake, oriented to person, oriented to place, oriented to time, oriented to situation, CN II-XII grossly intact. ABSENT: motor sensory deficit Results Laboratory Results: 06/08/18 07:30 06/08/18 07:30 06/08/18 06/08/18 07:30 07:30 WBC 10.4 RBC 2.77 L Hgb 9.2 L Hct 27.2 L MCV 98 H MCH 33.3 MCHC 33.8 RDW 22.5 H Plt Count 108 L Seg Neutrophils % 87.2 H Lymphocytes % 6.2 L Monocytes % 6.5 Eosinophils % 0.0 Basophils % 0.1 Absolute Neutrophils 9.0 H Absolute Lymphocytes 0.6 Absolute Monocytes 0.7 Absolute Eosinophils 0.0 Absolute Basophils 0.0 Sodium 133.9 L Potassium 4.2 Chloride 112 H Carbon Dioxide 13 L Anion Gap 9 BUN 15 Creatinine 0.57 Est GFR ( Amer) > 60 Est GFR (Non-Af Amer) > 60 Glucose 110 Calcium 7.2 L Total Bilirubin 4.7 H AST 133 H ALT 118 H Alkaline Phosphatase 142 H Total Protein 5.0 L Albumin 2.0 L 05/26/18 04:48 Troponin I < 0.012 Impressions: Abdomen Ultrasound 05/26/18 00:00 IMPRESSION: Slightly nodular liver with fatty infiltration. Splenomegaly. No gallstones. Head CT 05/26/18 04:49 IMPRESSION: No acute intracranial findings. Chest X-Ray 06/01/18 00:00 IMPRESSION: NO ACUTE FINDINGS. Lumbar Spine X-Ray 06/08/18 00:00 IMPRESSION: NORMAL 5 VIEW LUMBAR SPINE. Assessment & Plan - Diagnosis (1) GI bleed Is this a current diagnosis for this admission?: Yes Plan: S/P EGD on 06/03/18 which showed acute and chronic gastritis, no varices but did reveal some white patchy lesions on the esophagus. Octreotide DCed on 06/04. 06/06: Hemoglobin stable. Continue PPI. 06/07: Patient had an episode of nonbloody, nonbilious vomiting overnight. Upon encounter, he remain well oriented x 4. I was called by RN later at noon that patient had bright red blood on stools. Will continue to recheck H&H and will have surgery notified. 06/08: No recurrence of bleeding. Hemoglobin has been stable. Steroids d/jhonny. (2) Hepatic encephalopathy Is this a current diagnosis for this admission?: Yes Plan: Resolving. Bilirubin continues to improve. Continue lactulose. 06/04: Corrected Maddrey's discriminant score is 57. Started Solumedrol 40 mg daily. 06/07: Hold steroids due to bloody stools. Mentation and bilirubin continue to improve. (3) Acute liver failure Is this a current diagnosis for this admission?: Yes Plan: Improving. Bilirubin continue to trend down. (4) Alcohol withdrawal delirium Is this a current diagnosis for this admission?: Yes Plan: Resolved. (5) Thrombocytopenia Is this a current diagnosis for this admission?: Yes Plan: Secondary to chronic alcoholism. Platelet count stable and is starting to recover. (6) Hypokalemia Is this a current diagnosis for this admission?: Yes Plan: Continue 60 meqs PO daily. 06/05: Will add additional 60 meqs PO once for low Potassium this morning. Resolved. (7) Alcoholic hepatitis Is this a current diagnosis for this admission?: Yes Plan: Hold steroids due to bloody stools. - Time Time Spent with patient: 25-34 minutes
[2018-06-08] MEDS: FOLIC ACID/VITAMIN B COMP W-C CAPSULE PO SCH (17:14)
[2018-06-08] MEDS: TRAMADOL HCL 50 MG TABLET PO PRN ×2 (17:14→23:28)
[2018-06-08] MEDS: NORMAL SALINE 1000 ML 1,000 ML IV PRN (17:19)
[2018-06-09] MEDS: FERROUS SULFATE 325 MG TABLET PO SCH ×2 (10:07→17:37)
[2018-06-09] MEDS: TRAMADOL HCL 50 MG TABLET PO PRN ×3 (10:07→22:33)
[2018-06-09] MEDS: PROPRANOLOL HCL 10 MG TABLET PO SCH (10:08)
[2018-06-09] MEDS: POTASSIUM CHLORIDE 10 MEQ CAPSULE.ER PO SCH (10:08)
[2018-06-09] MEDS: MAGNESIUM OXIDE 400 MG TABLET PO SCH (10:08)
[2018-06-09] MEDS: THIAMINE HCL 100 MG TABLET PO SCH (10:08)
[2018-06-09] MEDS: LACTULOSE SYRUP 20 GM/30 ML UDCUP PO SCH ×2 (10:09→21:14)
[2018-06-09] MEDS: LIDOCAINE 5% (700 MG) TRANSDERMAL ADH..PATCH TP SCH (10:09)
--- NOTE | 2018-06-09 13:36 | PDOC PROGRESS REPORT ---
Subjective Progress Note for:: 06/09/18 Subjective:: KELLI ESTEBAN is a 43 year old male with a past medical history of alcohol abuse who was admitted for alcohol withdrawal and hepatic encephalopathy. He did develop hematemesis requiring 4 u of pRBC transfusion and underwent EGD yesterday 06/03/18 which showed acute and chronic gastritis, no varices but did reveal some white patchy lesions on the esophagus. 06/05: Patient continues to improve. Upon encounter he is now oriented to person, time and place. No recurrence of bleeding. No hematemesis or melena. Will be downgraded from ICU. 06/06: He continues to improve. He is AO x 3 this morning but does have episodes of confusion. He says he thought there was some person smoking outside his window. Patient also was assisted to the bathroom this morning where was noted to be weak. He slouched on the bathroom floor but reportedly did not fall or sustain trauma. 06/07: Patient had an episode of nonbloody, nonbilious vomiting overnight. Upon encounter, he remain well oriented x 4. I was called by RN later at noon that patient had bright red blood on stools. Will continue to recheck H&H and will have surgery notified. Steroids were held. 06/08: No acute event overnight. No recurrence of vomiting or bloody stools. Hemoglobin is stable. He remains well oriented (AO x4). He says this morning he has decided to go back home to his parents in [place] instead as he does not have any family or relative here. 06/09: No acute issues. He does complain that his abdomen feels more tight and slightly more distended in the past few days. Will order an abdominal US to reassess for increasing ascites. He remains AO x 4. He says he is planning to drive back to [place]. Patient is now ambulatory but still has some occasional balance issues where he tries to lean towards either side. He was strongly recommended to have a family member take him back to [place] instead. Reason For Visit: INCREASED AMMONIA LEVEL,HYOKALEMIA Physical Exam Vital Signs: Temp Pulse Resp BP Pulse Ox 97.9 F 78 20 124/75 96 06/09/18 11:39 06/09/18 11:39 06/09/18 11:39 06/09/18 11:39 06/09/18 11:39 Intake & Output 06/08/18 06/09/18 06/10/18 06:59 06:59 06:59 Intake Total 2304 1615 Output Total 1375 1150 Balance 929 465 Weight 186 lb 1.122 oz 190 lb 11.198 oz General appearance: PRESENT: no acute distress, well-developed, well-nourished Head exam: PRESENT: atraumatic, normocephalic Eye exam: PRESENT: scleral icterus. ABSENT: conjunctival injection Ear exam: PRESENT: normal external ear exam Mouth exam: PRESENT: moist, tongue midline Neck exam: ABSENT: carotid bruit, JVD, lymphadenopathy, thyromegaly Respiratory exam: PRESENT: clear to auscultation titi. ABSENT: rales, rhonchi, wheezes Cardiovascular exam: PRESENT: RRR. ABSENT: diastolic murmur, rubs, systolic murmur Pulses: PRESENT: normal dorsalis pedis pul GI/Abdominal exam: PRESENT: ascites, distended. ABSENT: tenderness Rectal exam: PRESENT: deferred Extremities exam: PRESENT: full ROM. ABSENT: calf tenderness, clubbing, pedal edema Neurological exam: PRESENT: alert, awake, oriented to person, oriented to place, oriented to time, oriented to situation, CN II-XII grossly intact. ABSENT: motor sensory deficit Results Laboratory Results: 06/08/18 07:30 06/08/18 07:30 05/26/18 04:48 Troponin I < 0.012 Impressions: Abdomen Ultrasound 05/26/18 00:00 IMPRESSION: Slightly nodular liver with fatty infiltration. Splenomegaly. No gallstones. Head CT 05/26/18 04:49 IMPRESSION: No acute intracranial findings. Chest X-Ray 06/01/18 00:00 IMPRESSION: NO ACUTE FINDINGS. Lumbar Spine X-Ray 06/08/18 00:00 IMPRESSION: NORMAL 5 VIEW LUMBAR SPINE. Assessment & Plan - Diagnosis (1) Acute liver failure Is this a current diagnosis for this admission?: Yes Plan: Improving. Bilirubin continue to trend down. 06/09: Will order a US abdomen to reassess for significant ascites and see if it needs to be tapped. (2) GI bleed Is this a current diagnosis for this admission?: Yes Plan: S/P EGD on 06/03/18 which showed acute and chronic gastritis, no varices but did reveal some white patchy lesions on the esophagus. Octreotide DCed on 06/04. 06/06: Hemoglobin stable. Continue PPI. 06/07: Patient had an episode of nonbloody, nonbilious vomiting overnight. Upon encounter, he remain well oriented x 4. I was called by RN later at noon that patient had bright red blood on stools. Will continue to recheck H&H and will have surgery notified. 06/08: No recurrence of bleeding. Hemoglobin has been stable. Steroids d/jhonny. (3) Hepatic encephalopathy Is this a current diagnosis for this admission?: Yes Plan: Resolving. Bilirubin continues to improve. Continue lactulose. 06/04: Corrected Maddrey's discriminant score is 57. Started Solumedrol 40 mg daily. 06/07: Hold steroids due to bloody stools. Mentation and bilirubin continue to improve. 06/09: Resolved. No hallucinations. He remain AO x4. (4) Alcohol withdrawal delirium Is this a current diagnosis for this admission?: Yes Plan: Resolved. (5) Thrombocytopenia Is this a current diagnosis for this admission?: Yes Plan: Secondary to chronic alcoholism. Platelet count stable and is starting to recover. (6) Hypokalemia Is this a current diagnosis for this admission?: Yes Plan: Continue 60 meqs PO daily. 06/05: Will add additional 60 meqs PO once for low Potassium this morning. Resolved. (7) Alcoholic hepatitis Is this a current diagnosis for this admission?: Yes Plan: Held steroids due to bloody stools. - Time Time Spent with patient: 25-34 minutes
[2018-06-09] MEDS: CYANOCOBALAMIN (VITAMIN B-12) INJ 1000 MCG/1 ML VIAL IM SCH (14:16)
[2018-06-09] MEDS: PANTOPRAZOLE SODIUM 40 MG VIAL IV SCH (14:22)
--- NOTE | 2018-06-09 15:40 | RADIOLOGY REPORT (SQ) ---
EXAM DESCRIPTION: U/S ABDOMEN COMPLETE W/O DOP COMPLETED DATE/TIME: 06/09/2018 2:53 pm REASON FOR STUDY: increasing abd distention COMPARISON: Abdominal ultrasound 05/26/2018 TECHNIQUE: Ultrasound over 4 quadrants was performed to assess ascites volume. LIMITATIONS: None. FINDINGS: Ultrasound all 4 quadrants demonstrates a small to moderate amount of ascites in the abdom en and pelvis. This is new compared to 05/26/2018. Echogenic liver with nodular contour from cirrhosis. Mild splenomegaly. IMPRESSION: Small to moderate amount of ascites in the abdomen and pelvis, increase compared to 2018 TECHNICAL DOCUMENTATION: JOB ID: [id number] [employer]- All Rights Reserved Reading location - IP/workstation name: [email or web address]
[2018-06-09] MEDS: FOLIC ACID/VITAMIN B COMP W-C CAPSULE PO SCH (16:21)
[2018-06-09 16:40] LABS: INTERNATIONAL RATION (INR) 1.96; PROTHROMBIN TIME 23.3 SEC (11.4-15.4)
[2018-06-10 06:39] LABS: ABSOLUTE EOSINOPHILS # (AUTO) 0.1 10^3/uL (0.0-0.6); ABSOLUTE LYMPHOCYTES (AUTO) 1.2 10^3/uL (0.5-4.7); ABSOLUTE MONOCYTES (AUTO) 0.8 10^3/uL (0.1-1.4); ABSOLUTE NEUT (AUTO) 7.8 10^3/uL (1.7-8.2); EOSINOPHILS % (AUTO) 1.3 % (0-6); HEMATOCRIT 28.3 % (37.9-51.0); HEMOGLOBIN 9.8 g/dL (13.5-17.0); LYMPHOCYTES % (AUTO) 11.7 % (13-45); MEAN CORPUSCULAR HEMOGLOBIN 33.6 pg (27.0-33.4); MEAN CORPUSCULAR HGB CONC 34.5 g/dL (32.0-36.0); MEAN CORPUSCULAR VOLUME 97 fl (80-97); PLATELET COUNT 115 10^3/uL (150-450); RED BLOOD COUNT 2.91 10^6/uL (4.35-5.55); RED CELL DISTRIBUTION WIDTH 21.7 % (11.5-14.0); TOTAL CELLS COUNTED % (AUTO) 100 %; WHITE BLOOD COUNT 9.9 10^3/uL (4.0-10.5)
[2018-06-10 06:44] LABS: ALANINE AMINOTRANSFERASE 206 U/L (21-72); ALBUMIN 1.9 g/dL (3.5-5.0); ALKALINE PHOSPHATASE 121 U/L (38-126); ANION GAP 8 (5-19); ASPARTATE AMINO TRANSFERASE 268 U/L (17-59); BILIRUBIN,TOTAL 5.7 mg/dL (0.2-1.3); BLOOD UREA NITROGEN 10 mg/dL (7-20); CALCIUM 7.3 mg/dL (8.4-10.2); CARBON DIOXIDE 14 mmol/L (22-30); CHLORIDE 110 mmol/L (98-107); GLUCOSE 77 mg/dL (75-110); POTASSIUM 3.9 mmol/L (3.6-5.0); SODIUM 131.7 mmol/L (137-145)
[2018-06-10] MEDS: THIAMINE HCL 100 MG TABLET PO SCH (09:32)
[2018-06-10] MEDS: FERROUS SULFATE 325 MG TABLET PO SCH ×2 (09:32→17:07)
[2018-06-10] MEDS: POTASSIUM CHLORIDE 10 MEQ CAPSULE.ER PO SCH (09:33)
[2018-06-10] MEDS: MAGNESIUM OXIDE 400 MG TABLET PO SCH (09:33)
[2018-06-10] MEDS: LACTULOSE SYRUP 20 GM/30 ML UDCUP PO SCH ×2 (09:33→21:25)
[2018-06-10] MEDS: PROPRANOLOL HCL 10 MG TABLET PO SCH ×2 (09:33→23:30)
[2018-06-10] MEDS: LIDOCAINE 5% (700 MG) TRANSDERMAL ADH..PATCH TP SCH (09:34)
[2018-06-10] MEDS: PANTOPRAZOLE SODIUM 40 MG VIAL IV SCH (09:34)
[2018-06-10] MEDS: CYANOCOBALAMIN (VITAMIN B-12) INJ 1000 MCG/1 ML VIAL IM SCH (09:37)
[2018-06-10] MEDS: TRAMADOL HCL 50 MG TABLET PO PRN ×3 (09:38→23:28)
[2018-06-10] MEDS ORDERED: PHYTONADIONE INJ 10 MG/1 ML AMPULE SUBCUT ONE (10:30)
[2018-06-10 16:20] LABS: FLUID APPEARANCE CLEAR; FLUID COLOR YELLOW; FLUID SOURCE ASCITES; FLUID TYPE PERITONEAL; FLUID VISCOSITY LIQUID
--- NOTE | 2018-06-10 16:25 | PDOC PROGRESS REPORT ---
Subjective Progress Note for:: 06/10/18 Subjective:: KELLI ESTEBAN is a 43 year old male with a past medical history of alcohol abuse who was admitted for alcohol withdrawal and hepatic encephalopathy. He did develop hematemesis requiring 4 u of pRBC transfusion and underwent EGD yesterday 06/03/18 which showed acute and chronic gastritis, no varices but did reveal some white patchy lesions on the esophagus. 06/05: Patient continues to improve. Upon encounter he is now oriented to person, time and place. No recurrence of bleeding. No hematemesis or melena. Will be downgraded from ICU. 06/06: He continues to improve. He is AO x 3 this morning but does have episodes of confusion. He says he thought there was some person smoking outside his window. Patient also was assisted to the bathroom this morning where was noted to be weak. He slouched on the bathroom floor but reportedly did not fall or sustain trauma. 06/07: Patient had an episode of nonbloody, nonbilious vomiting overnight. Upon encounter, he remain well oriented x 4. I was called by RN later at noon that patient had bright red blood on stools. Will continue to recheck H&H and will have surgery notified. Steroids were held. 06/08: No acute event overnight. No recurrence of vomiting or bloody stools. Hemoglobin is stable. He remains well oriented (AO x4). He says this morning he has decided to go back home to his parents in [place] instead as he does not have any family or relative here. 06/09: No acute issues. He does complain that his abdomen feels more tight and slightly more distended in the past few days. Will order an abdominal US to reassess for increasing ascites. He remains AO x 4. He says he is planning to drive back to [place]. Patient is now ambulatory but still has some occasional balance issues where he tries to lean towards either side. He was strongly recommended to have a family member take him back to [place] instead. 06/10: He continues to improve although abdomen remain distended from ascites. He remains AO x4. He also has scrotal swelling. He does not appear to require SNF/rehab placement now with continued clinical improvement. He is going for paracentesis today. Reason For Visit: INCREASED AMMONIA LEVEL,HYOKALEMIA Physical Exam Vital Signs: Temp Pulse Resp BP Pulse Ox 98.7 F 93 18 120/70 95 06/10/18 12:00 06/10/18 14:00 06/10/18 12:00 06/10/18 12:00 06/10/18 12:00 Intake & Output 06/09/18 06/10/18 06/11/18 06:59 06:59 06:59 Intake Total 1615 2272 Output Total 1150 Balance 465 2272 Weight 190 lb 11.198 oz 191 lb 2.252 oz General appearance: PRESENT: no acute distress, well-developed, well-nourished Head exam: PRESENT: atraumatic, normocephalic Eye exam: PRESENT: EOMI, PERRLA, scleral icterus Ear exam: PRESENT: normal external ear exam Neck exam: ABSENT: carotid bruit, JVD, lymphadenopathy, thyromegaly Respiratory exam: PRESENT: clear to auscultation titi. ABSENT: rales, rhonchi, wheezes Cardiovascular exam: PRESENT: RRR. ABSENT: diastolic murmur, rubs, systolic m urmur Pulses: PRESENT: normal dorsalis pedis pul GI/Abdominal exam: PRESENT: ascites, distended, normal bowel sounds, soft. ABSENT: guarding, mass, organolmegaly, rebound, tenderness Rectal exam: PRESENT: deferred Neurological exam: PRESENT: alert, awake, oriented to person, oriented to place, oriented to time, oriented to situation, CN II-XII grossly intact. ABSENT: motor sensory deficit Results Laboratory Results: 06/10/18 05:00 06/10/18 05:00 06/10/18 06/10/18 05:00 05:00 WBC 9.9 RBC 2.91 L Hgb 9.8 L Hct 28.3 L MCV 97 MCH 33.6 H MCHC 34.5 RDW 21.7 H Plt Count 115 L Seg Neutrophils % 79.0 H Lymphocytes % 11.7 L Monocytes % 8.0 Eosinophils % 1.3 Basophils % 0.0 Absolute Neutrophils 7.8 Absolute Lymphocytes 1.2 Absolute Monocytes 0.8 Absolute Eosinophils 0.1 Absolute Basophils 0.0 Sodium 131.7 L Potassium 3.9 Chloride 110 H Carbon Dioxide 14 L Anion Gap 8 BUN 10 Creatinine 0.54 Est GFR ( Amer) > 60 Est GFR (Non-Af Amer) > 60 Glucose 77 Calcium 7.3 L Total Bilirubin 5.7 H AST 268 H ALT 206 H Alkaline Phosphatase 121 Total Protein 5.0 L Albumin 1.9 L 05/26/18 04:48 Troponin I < 0.012 Impressions: Head CT 05/26/18 04:49 IMPRESSION: No acute intracranial findings. Chest X-Ray 06/01/18 00:00 IMPRESSION: NO ACUTE FINDINGS. Lumbar Spine X-Ray 06/08/18 00:00 IMPRESSION: NORMAL 5 VIEW LUMBAR SPINE. Abdomen Ultrasound 06/09/18 12:54 IMPRESSION: Small to moderate amount of ascites in the abdomen and pelvis, increase compared to 05/26/2018 Assessment & Plan - Diagnosis (1) Acute liver failure Is this a current diagnosis for this admission?: Yes Plan: Improving. Bilirubin continue to trend down. 06/09: Will order a US abdomen to reassess for significant ascites and see if it needs to be tapped. 06/10: Repeat US show increase in ascites. He does appear to have increasing abdominal distention. He is going for paracentesis today. (2) GI bleed Is this a current diagnosis for this admission?: Yes Plan: S/P EGD on 06/03/18 which showed acute and chronic gastritis, no varices but did reveal some white patchy lesions on the esophagus. Octreotide DCed on 06/04. 06/06: Hemoglobin stable. Continue PPI. 06/07: Patient had an episode of nonbloody, nonbilious vomiting overnight. Upon encounter, he remain well oriented x 4. I was called by RN later at noon that patient had bright red blood on stools. Will continue to recheck H&H and will have surgery notified. 06/08: No recurrence of bleeding. Hemoglobin has been stable. Steroids d/jhonny. (3) Hepatic encephalopathy Is this a current diagnosis for this admission?: Yes Plan: Resolving. Bilirubin continues to improve. Continue lactulose. 06/04: Corrected Maddrey's discriminant score is 57. Started Solumedrol 40 mg daily. 06/07: Hold steroids due to bloody stools. Mentation and bilirubin continue to improve. 06/09: Resolved. No hallucinations. He remain AO x4. (4) Alcohol withdrawal delirium Is this a current diagnosis for this admission?: Yes Plan: Resolved. (5) Thrombocytopenia Is this a current diagnosis for this admission?: Yes Plan: Secondary to chronic alcoholism. Platelet count stable and is starting to recover. (6) Hypokalemia Is this a current diagnosis for this admission?: Yes Plan: Continue 60 meqs PO daily. 06/05: Will add additional 60 meqs PO once for low Potassium this morning. Resolved. (7) Alcoholic hepatitis Is this a current diagnosis for this admission?: Yes Plan: DCed steroids due to bloody stools. - Time Time Spent with patient: 25-34 minutes
[2018-06-10] MEDS ORDERED: PROPRANOLOL HCL 10 MG TABLET PO SCH (17:00)
[2018-06-10] MEDS: FOLIC ACID/VITAMIN B COMP W-C CAPSULE PO SCH (17:06)
--- NOTE | 2018-06-10 17:35 | RADIOLOGY REPORT (SQ) ---
EXAM DESCRIPTION: U/S ABD PARACENTESIS COMPLETED DATE/TIME: 06/10/2018 4:56 pm REASON FOR STUDY: ascites COMPARISON 06/09/2018 LIMITATIONS: None. PROCEDURE: After obtaining informed consent, the patient was brought to the ultrasound suite. The p rocedure was performed with the patient on a gurney. Ultrasound was used to identify a prominent poc ket of ascites in the right upper quadrant. An appropriate access site was selected. The patient wa s prepped and draped in usual sterile fashion. The access site was anesthetized with 6 mL 1% lidoca ine. A Saub-O-Hegblrux needle was advanced into the fluid. After aspiration of fluid the needle, th e catheter was advanced off the needle into the fluid. A total of 4,650 mL of clear yellow fluid was removed. The patient tolerated the procedure well left the department in satisfactory condition. Specimens were sent for testing as per Dr. Felipe IMPRESSION: Successful ultrasound-guided diagnostic and therapeutic paracentesis COMMENT: Patient medication list reviewed: Yes TECHNICAL DOCUMENTATION: JOB ID: [id number] [employer]- All Rights Reserved Reading location - IP/workstation name: [email or web address]
[2018-06-10] MEDS ORDERED: METOCLOPRAMIDE HCL ORAL SOLN 10 MG/10 ML UDCUP PO ONE (19:30)
[2018-06-10] MEDS ORDERED: MAG HYDROX/AL HYDROX/SIMETH SUSP 30 ML UDCUP PO ONE (19:30)
[2018-06-10] MEDS ORDERED: LIDOCAINE 2% VISCOUS SOLN 20 ML UDCUP PO ONE (19:30)
[2018-06-11] MEDS: FERROUS SULFATE 325 MG TABLET PO SCH (09:54)
[2018-06-11] MEDS: LACTULOSE SYRUP 20 GM/30 ML UDCUP PO SCH (09:55)
[2018-06-11] MEDS: LIDOCAINE 5% (700 MG) TRANSDERMAL ADH..PATCH TP SCH (09:55)
[2018-06-11] MEDS: POTASSIUM CHLORIDE 10 MEQ CAPSULE.ER PO SCH (09:55)
[2018-06-11] MEDS: THIAMINE HCL 100 MG TABLET PO SCH (09:55)
[2018-06-11] MEDS: MAGNESIUM OXIDE 400 MG TABLET PO SCH (09:55)
[2018-06-11] MEDS: PANTOPRAZOLE SODIUM 40 MG VIAL IV SCH (09:57)
[2018-06-11] MEDS: PROPRANOLOL HCL 10 MG TABLET PO SCH (09:57)
[2018-06-11] MEDS: CYANOCOBALAMIN (VITAMIN B-12) INJ 1000 MCG/1 ML VIAL IM SCH (10:06)
[2018-06-11 14:04] VITALS: BP 97/57
--- NOTE | 2018-06-12 16:26 | PDOC DISCHARGE SUMMARY ---
General - Admit/Disc Date/PCP Admission Date/Primary Care Provider: 05/26/18 07:40 Discharge Date: 06/11/18 - Discharge Diagnosis (1) Hepatic encephalopathy Is this a current diagnosis for this admission?: Yes (2) Alcohol intoxication Is this a current diagnosis for this admission?: Yes (3) Alcoholic hepatitis Is this a current diagnosis for this admission?: Yes (4) Upper GI bleed Is this a current diagnosis for this admission?: Yes (5) Anemia Is this a current diagnosis for this admission?: Yes (6) Hypokalemia Is this a current diagnosis for this admission?: Yes (7) Elevated liver enzymes Is this a current diagnosis for this admission?: Yes (8) Hypomagnesemia Is this a current diagnosis for this admission?: Yes (9) Thrombocytopenia Is this a current diagnosis for this admission?: Yes (10) Hypernatremia Is this a current diagnosis for this admission?: Yes - Additional Information Resuscitation Status: Full Code Home Medications: No Home Medications 05/26/18 History of Present Illness History of Present Illness: KELLI ESTEBAN is a 43 year old male who moved recently from [facility] to [place] for work. Patient presents to the emergency room due to acute onset of generalized weakness associated with shaking and tremulousness and feeling cold. He denies fever or chills. He denies nausea, vomiting, diarrhea or constipation. No chest pain. He admits to feeling short of breath. He is very poor historian. He says he is drinking 8 glasses of vodka every other day for the past month. He has been drinking for several years but quit for some time and now drinking again. Patient says he has history of liver and kidney disease but unsure what kind of illness exactly. In the emergency room he was found to have high ammonia level and his alcohol level was 337. He says his last drink was 2 days ago. His liver enzymes are elevated and his lipase is 400. His potassium was 2.2. Hospital Course Hospital Course: Left AGAINST MEDICAL ADVICE. (1) Hepatic encephalopathy Resolved. Alert oriented x4 on the day of discharge. Repeat ammonia level 47 from 125.8 on admission Abdominal ultrasound slightly nodular liver with fatty infiltration. Hepatitis panel negative. PT 15.9 INR 1.21 on admission Patient continued on lactulose. Patient was strongly advised against driving or operating any heavy machinery and arrangement was being made by social workers provide him with a bus ticket back home. Fortunately patient left AGAINST MEDICAL ADVICE. His father was called by nursing staff so he could accompany him back home but he could not do it because of work. He was also notified who was willing to come and accompany him back home but patient did not want her to accompany him as she could not be able to drive. He left AMA. Family was notified. Please refer to nursing staff note. (2) Alcohol intoxication Serum alcohol 337 on admission. Started on DT protocol. Did not have any seizures during hospitalizations. (3) Alcoholic hepatitis GI was consulted. Corrected hepatitis discriminant factor 58. Was started on steroids but was DC'd due to GI bleed and bloody stools. (4) Upper GI bleed Impression was likely due to variceal bleeding caused by underlying cirrhosis secondary to continued alcohol abuse. Received 4 PRBC/FFP infusions, started on octreotide drip, IV PPI, propranolol, ceftriaxone and IV fluids. 06/03/2018 an upper GI endoscopy was done which showed acute on chronic gastritis, no varices did reveal some white patches on the esophagus. Octreotide drip was DC'd on 06/04/2018. Hemoglobin remained stable until discharge. (5) Anemia Due to upper GI bleed caused by acute on chronic diffuse gastritis. MCV >100. Guaiac positive. 06/01/2018. Iron 77.8. TIBC 205, saturation 38%, ferritin 138. B12 840, folic acid 10.8. Started on ferrous sulfate, B12 and folic acid. (6) Hypokalemia Resolved. Continue p.o. potassium replacement daily. (7) Elevated liver enzymes Due to acute liver failure caused by underlying alcohol abuse. Mild improvement. 05/26/2018. Abdominal ultrasound slightly nodular liver with fatty infiltration. Hepatitis panel negative. PT 15.9 INR 1.21 on admission (8) Hypomagnesemia Resolved. Start daily magnesium p.o. replacement. Magnesium level tomorrow. (9) Thrombocytopenia Underlying cirrhosis. Platelet count remained stable. (10) Hypernatremia Resolved. Physical Exam Vital Signs: Temp Pulse Resp BP Pulse Ox 99.3 F 93 17 97/57 L 97 06/11/18 11:22 06/11/18 11:22 06/11/18 11:22 06/11/18 11:22 06/11/18 11:22 Intake & Output 06/11/18 06/12/18 06/13/18 06:59 06:59 06:59 Intake Total 1080 250 Output Total 2440 Balance -1360 250 Weight 79 kg Results Laboratory Results: 06/10/18 05:00 06/10/18 05:00 05/26/18 04:48 Troponin I < 0.012 Impressions: Head CT 05/26/18 04:49 IMPRESSION: No acute intracranial findings. Chest X-Ray 06/01/18 00:00 IMPRESSION: NO ACUTE FINDINGS. Lumbar Spine X-Ray 06/08/18 00:00 IMPRESSION: NORMAL 5 VIEW LUMBAR SPINE. Abdomen Ultrasound 06/09/18 12:54 IMPRESSION: Small to moderate amount of ascites in the abdomen and pelvis, increase compared to 05/26/2018 Paracentesis Ultrasound 06/10/18 12:47 IMPRESSION: Successful ultrasound-guided diagnostic and therapeutic paracentesis Qualifiers - * PATIENT BEING DISCHARGED WITH ANY OF THE FOLLOWING DIAGNOSIS: No
== END 2018-06-11 14:06 | disposition left against medical advice (07) | DRG 432 ==
LOC: ER 04:18 → INTOOBSV 07:40 → OBSVTOIN 07:40 → EH 07:40 → 3N 08:44 → ICU 06-01 16:39 → 4S 06-05 20:19
PROVIDERS: ADMIT Internal Medicine; ATTEND Internal Medicine
PROC: 02HV33Z Insertion of Infusion Device into Superior Vena Cava, Percutaneous Approach (ICD-10-PCS; 2018-06-01)
PROC: B548ZZA Ultrasonography of Superior Vena Cava, Guidance (ICD-10-PCS; 2018-06-01)
PROC: 30233N1 Transfusion of Nonautologous Red Blood Cells into Peripheral Vein, Percutaneous Approach (ICD-10-PCS; 2018-06-01)
PROC: 30233N1 Transfusion of Nonautologous Red Blood Cells into Peripheral Vein, Percutaneous Approach (ICD-10-PCS; 2018-06-02)
PROC: 30233K1 Transfusion of Nonautologous Frozen Plasma into Peripheral Vein, Percutaneous Approach (ICD-10-PCS; 2018-06-02)
PROC: 0DB68ZX Excision of Stomach, Via Natural or Artificial Opening Endoscopic, Diagnostic (ICD-10-PCS; 2018-06-03)
PROC: 30233N1 Transfusion of Nonautologous Red Blood Cells into Peripheral Vein, Percutaneous Approach (ICD-10-PCS; 2018-06-03)
PROC: 0DB28ZX Excision of Middle Esophagus, Via Natural or Artificial Opening Endoscopic, Diagnostic (ICD-10-PCS; principal; 2018-06-03 16:30)
PROC: 0W9G3ZZ Drainage of Peritoneal Cavity, Percutaneous Approach (ICD-10-PCS; 2018-06-10)
DX: K70.40 Alcoholic hepatic failure without coma (principal); K29.01 Acute gastritis with bleeding; K29.51 Unspecified chronic gastritis with bleeding; E87.0 Hyperosmolality and hypernatremia; D64.9 Anemia, unspecified; F10.229 Alcohol dependence with intoxication, unspecified; Y90.8 Blood alcohol level of 240 mg/100 ml or more; K70.11 Alcoholic hepatitis with ascites; E87.6 Hypokalemia; E83.42 Hypomagnesemia; D69.6 Thrombocytopenia, unspecified
CPT/HCPCS: 00731; 36415; 36430; 43239; 49083; 70450; 71045; 72110; 76700; 80048; 80053; 80074; 80307; 81001; 82140; 82272; 82607; 82728; 82746; 82962; 83540; 83550; 83690; 83735; 84100; 84132; 84484; 85025; 85027; 85045; 85610; 85730; 86850; 86900; 86901; 86920; 87040; 87070; 87075; 87205; 88305; 89050; 93005; 93010; 96361; 96365; 96375; 99291; C1751; G0378; J0696; J2060; J2250; J2354; J2704; J2920; J3230; J3411; J3420; J3430; J3475; J3480; J3490; J7030; J7040; J7050; J7060; P9016; P9017; S0164